=== PATIENT | female | born 1960 | race Caucasian/White ===

== ENCOUNTER → 2018-01-11 15:19 | Outpatient (CLI) | payer MEDICAID, SELFPAY ==
--- NOTE | 2018-01-11 15:25 | XR_ITS ---
XR chest 2V HISTORY: ITS.REASON: LT LAT CHEST WALL PAIN, S/P FALL 01-10-18 ORDERING PHYSICIAN: Deny Elizabeth PATIENT AGE: 57 years COMPARISON: 01/14/2007 FINDINGS: The cardiomediastinal silhouette and pulmonary vascularity are within normal limits. The lungs are clear without infiltrates, suspicious nodules, or pleural effusions. There is no right third rib fracture. No obvious pneumothorax. No displaced fractures apparent. No acute bony abnormalities. IMPRESSION: No change with no acute finding
== END ==
PROVIDERS: PCP Internal Medicine; Visit Provider Internal Medicine
DX: R07.89 Other chest pain (principal)
CPT/HCPCS: 71046

== ENCOUNTER → 2018-08-12 16:03 | Outpatient (CLI) | payer MEDICAID, SELFPAY ==
--- NOTE | 2018-08-12 16:09 | XR_ITS ---
XR knee LT 3V HISTORY: Knee pain ITS.REASON: CHRISTINE KNEE PAIN ORDERING PHYSICIAN: Deny Elizabeth PATIENT AGE: 58 years COMPARISON: None FINDINGS: No fracture or dislocation. No lytic or blastic change. Normal mineralization. No significant arthritic changes evident. No other significant findings IMPRESSION: Negative Knee
--- NOTE | 2018-08-12 16:09 | XR_ITS ---
XR knee RT 3V HISTORY: ITS.REASON: CHRISTINE KNEE PAIN ORDERING PHYSICIAN: Deny Elizabeth PATIENT AGE: 58 years COMPARISON: None FINDINGS: No fracture or dislocation. No lytic or blastic change. Normal mineralization. No significant arthritic changes evident. No other significant findings IMPRESSION: Negative Knee
== END ==
PROVIDERS: PCP Internal Medicine; Visit Provider Internal Medicine
DX: M25.561 Pain in right knee (principal); M25.562 Pain in left knee
CPT/HCPCS: 73562

== ENCOUNTER → 2020-02-23 14:54 | Outpatient (CLI) | payer OTHER, SELFPAY ==
--- NOTE | 2020-02-23 15:22 | XR_ITS ---
PROCEDURE: XR HIP LT 2-3V W/PELVIS CLINICAL INDICATION: left hip pain COMPARISON: CT ABDPELW/WO CT ABD PELVIS W/WO CONTRAST from 08/09/2015 FINDINGS: Severe osteoarthritic changes are present involving both hips with dysplastic changes of the femoral heads. No fracture or dislocation. No lytic or blastic change. There is a laminated calcific density to the right L3 and L4 consistent with a large gallstone measuring 3 cm. IMPRESSION: Severe osteoarthritic changes of the hips Cholelithiasis Dictated by: Moi Posadas MD 02/23/2020 16:34 Moi Posadas MD in [place] 02/23/2020 16:34
--- NOTE | 2020-02-23 15:22 | XR_ITS ---
PROCEDURE: XR LUMBAR SPINE MIN 4V CLINICAL INDICATION: back pain COMPARISON: No exams were available for comparison FINDINGS: No fracture or dislocation. No lytic or blastic change. There is normal mineralization. There is mild endplate osteophyte formation at L4 and L5. Other findings:Generalized vascular calcification. Incidental note made of a 3 cm gallstone. IMPRESSION: Minimal degenerative change lumbar spine. No acute fracture. Cholelithiasis Dictated by: Moi Posadas MD 02/23/2020 16:36 Moi Posadas MD in [place] 02/23/2020 16:36
[2020-02-23 15:31] LABS: Basophils # 0.1 K/mm3 (0-0.2); Basophils % 0.6 % (0.1-2.0); Eosinophils # 0.2 K/mm3 (0.0-0.4); Eosinophils % 2.5 % (0.1-12.0); Hematocrit 44.2 % (37.0-47.0); Hemoglobin 14.4 g/dL (12.2-16.2); Lymphocytes # 2.7 K/mm3 (0.7-4.5); Lymphocytes % 38.2 % (10-50); Mean Corpuscular HGB Conc 32.6 g/dL (31.8-35.4); Mean Corpuscular Hemoglobin 31.3 pg (27.0-31.2); Mean Corpuscular Volume 96.1 fl (81-99); Mean Platelet Volume 8.4 fl (7.4-10.4); Monocytes # 0.5 K/mm3 (0.1-1.0); Monocytes % 6.4 % (1.7-9.3); Neutrophils # 3.7 K/mm3 (1.8-7.8); Neutrophils % 52.2 % (37.0-80.0); Platelet Count 312 K/mm3 (142-424); Red Cell Distribution Width 13.7 % (11.5-17.5); White Blood Count 7.1 K/mm3 (4.8-10.8)
[2020-02-23 15:54] LABS: Alanine Aminotransferase 11 U/L (12-78); Albumin Level 4.7 g/dl (3.5-5.0); Albumin/Globulin Ratio 1.5 (1.1-1.8); Alkaline Phosphatase 124 U/L (38-126); Anion Gap 11.4 mEq/L (5-15); Aspartate Amino Transferase 24 U/L (14-36); Bilirubin,Total 0.7 mg/dl (0.2-1.3); Blood Urea Nitrogen 6 mg/dl (7-17); Carbon Dioxide 32 mmol/L (22.0-30.0); Chloride 104 mmol/L (98-107); Chol/HDL Ratio 3.4 (1-3.5); Cholesterol 218 mg/dl (140-200); Estimated Glomerular Filt Rate 86 ml/min (>60); GFR (African American) 104 ML/MIN (>60); Globulin 3.1 g/dL (1.3-3.2); Glucose 103 mg/dl (74-100); HDL Cholesterol 65 mg/dl (40-60); Potassium 4.4 mmoL/L (3.5-5.1); Sodium 143 mmol/L (136-145); Total Protein,Serum 7.8 g/dl (6.3-8.2); Triglycerides 76 mg/dl (30-150); Uric Acid 2.9 mg/dl (2.5-6.2); VLDL Cholesterol 15 mg/dL (0-40)
[2020-02-23 16:05] LABS: Direct LDL Cholesterol 140.64 mg/dL (100-129)
[2020-02-23 16:11] LABS: 25-OH Vitamin D, Total 20.2 ng/mL (30-100)
[2020-02-23 16:12] LABS: Free T4 (Free Thyroxine) 1.33 ng/dl (0.78-2.19)
[2020-02-23 16:25] LABS: Thyroid Stimulating Hormone 1.41 uIU/mL (0.465-4.68)
[2020-02-23 16:48] LABS: Erythrocyte Sedimentation Rate 68 mm/hr (0-30)
[2020-02-25 15:19] LABS: RA Latex Turbid. <10.0 IU/mL (0.0-13.9)
[2020-02-27 16:00] LABS: Antinuclear Antibodies, IFA Negative (.)
== END ==
PROVIDERS: PCP Emergency Medicine; Visit Provider Emergency Medicine
DX: M54.9 Dorsalgia, unspecified (principal); M25.552 Pain in left hip; R53.83 Other fatigue; E55.9 Vitamin D deficiency, unspecified
CPT/HCPCS: 36415; 72110; 73502; 80053; 80061; 82306; 84439; 84443; 84550; 85025; 85651; 86038; 86431

== ENCOUNTER → 2020-02-26 15:05 | Outpatient (CLI) | payer OTHER, SELFPAY ==
--- NOTE | 2020-02-26 15:06 | MR_ITS ---
PROCEDURE: MR LUMBAR SPINE WO CON CLINICAL INDICATION: back pain BILATERAL HIP PAIN WHEN WALKING. SYMPTOMS XYRS. LBP. LT LEG THIGH PAIN. COMPARISON: CR XR LUMBAR SPINE MIN 4V from 02/23/2020 TECHNIQUE: Standard multiplanar multiecho sequences are performed without contrast. 3-D MIP and myelographic images are also rendered and reviewed FINDINGS: There is normal alignment. The spinal cord ends at the L1 level. T11-T12: There is some ligamentum hypertrophy on the right with mild right lateral recess narrowing. This is only imaged in the sagittal plane. Dedicated MRI of the thoracic spine may provide further evaluation. T12-L1, L1-L2, L2-L3, and L3-L4 have an unremarkable appearance. L4-5: Minimal concentric bulging disc with facet and ligamentum hypertrophy with mild bilateral lateral recess and foraminal narrowing. L5-S1: Mild facet ligamentum hypertrophy with mild bilateral lateral recess and foraminal narrowing. Incidental note is made of a large gallstone. No extruded herniated disc or canal stenosis. IMPRESSION: 1. T11-T12: There is some ligamentum hypertrophy on the right with mild right lateral recess narrowing. This is only imaged in the sagittal plane. Dedicated MRI of the thoracic spine may provide further evaluation 2. L4-5: Minimal concentric bulging disc with facet and ligamentum hypertrophy with mild bilateral lateral recess and foraminal narrowing. 3. L5-S1: Mild facet ligamentum hypertrophy with mild bilateral lateral recess and foraminal narrowing. 4. No extruded herniated disc or canal stenosis 5. Cholelithiasis Dictated by: Moi Posadas MD 02/27/2020 06:31 Moi Posadas MD in [place] 02/27/2020 06:31
--- NOTE | 2020-02-26 15:52 | MM_ITS ---
PROCEDURE: MM DIG SCREENING MAMM BI W/CAD Digital Breast Tomosynthesis Included CLINICAL INDICATION: screening There is no personal or family history of breast cancer. There has been a 20 lb weight loss since the previous mammogram exam. COMPARISON: MG DMSB DIG MAMM-SCREEN CHRISTINE from 05/25/2014 MG DMSB DIG MAMM-SCREEN CHRISTINE from 05/28/2015 MG DMSB DIG MAMM-SCREEN CHRISTINE W/CAD from 06/02/2016 TECHNIQUE: Standard CC and MLO images and 3D Tomosynthesis was obtained. R2 CAD reviewed. FINDINGS: Mild scattered fibroglandular densities are seen in the central portions of both breasts. A somewhat linear collection of amorphous microcalcifications upper-outer quadrant left breast which were not definitely seen on the previous exams. Recommend the patient return for spot compression magnification views and possibly ultrasound as well. There are a few benign-appearing nodular densities left breast which has been noted previously and appear to be stable. IMPRESSION: Fibrofatty parenchyma with new suspicious microcalcifications left breast BI-RAD Category: 0 Need Additional Imaging Evaluation FOLLOW-UP: IMM Immediate Follow-up Recommended (A letter has been sent to the patient regarding results of the study.) Dictated by: Dr. Jacobo Munoz MD 02/28/2020 11:38 Dr. Jacobo Munoz MD in [place] 02/28/2020 11:38
== END ==
PROVIDERS: PCP Emergency Medicine; Visit Provider Emergency Medicine
DX: Z12.31 Encounter for screening mammogram for malignant neoplasm of breast (principal); M54.16 Radiculopathy, lumbar region; M19.90 Unspecified osteoarthritis, unspecified site; Z72.0 Tobacco use
CPT/HCPCS: 72148; 76376; 77063; 77067

== ENCOUNTER → 2020-03-06 07:57 | Outpatient (CLI) | payer OTHER, SELFPAY ==
--- NOTE | 2020-03-06 07:57 | US_ITS ---
PROCEDURE: US GALLBLADDER CLINICAL INDICATION: gallstones seen on MRI COMPARISON: No exams were available for comparison FINDINGS: Pancreas: Unremarkable/Not well seen Liver: Unremarkable. There is appropriate direction of blood flow within a non dilated portal vein. Right kidney: Unremarkable appearing. No hydronephrosis. The right kidney measures 10.9 x 3.5 by 4.6 cm and appears sonographically normal. Gallbladder: There is a large 2.5 cm nonmobile partially calcified gallstone in the body of the gallbladder. The shows prominent acoustic shadowing beneath. There is mild diffuse gallbladder wall thickening. The common bile duct is normal in caliber. IMPRESSION: Cholelithiasis probable some degree of chronic cholecystitis in view of the gallbladder wall thickening Dictated by: Dr. Jacobo Munoz MD 03/06/2020 10:33 Dr. Jacobo Munoz MD in [place] 03/06/2020 10:33
== END ==
PROVIDERS: PCP Emergency Medicine; Visit Provider Emergency Medicine
DX: K80.20 Calculus of gallbladder without cholecystitis without obstruction (principal)
CPT/HCPCS: 76705

== ENCOUNTER → 2020-03-12 13:52 | Outpatient (CLI) | payer OTHER, SELFPAY ==
--- NOTE | 2020-03-12 13:52 | US_ITS ---
PROCEDURE: MM DIG MAMM DX UNILAT LT CAD US US BREAST LT COMPLETE Referring Doctor: Chavo Perales Patient Age:60Y CLINICAL INDICATION: Abnormal mammogram progressive abnormal calcifications upper outer quadrant.. COMPARISON: MG DMSB DIGITAL MAMM-SCREEN BILATERAL from 03/25/2010 MG DMSB DIGITAL MAMM-SCREEN BILATERAL from 04/26/2012 MG DMDB DIG MAMM-DX CHRISTINE from 03/24/2013 MG DMSB DIG MAMM-SCREEN CHRISTINE from 05/25/2014 MG DMSB DIG MAMM-SCREEN CHRISTINE W/CAD from 06/02/2016 MG MM DIG SCREENING MAMM BI W/CAD from 02/26/2020 US US BREAST LT COMPLETE from 03/12/2020 TECHNIQUE: Magnification views cc, MLO, 90 degree. FINDINGS: .. DIAGNOSTIC LEFT MAMMOGRAM -MAGNIFICATION VIEWS additional magnification views performed today including cc MLO and 90 degree magnification views of calcifications in the upper outer quadrant. This grouping of numerous stippled calcifications are suspicious and do warrant stereotactic biopsy, to further evaluate This grouping/region of calcifications extends for region of approximately 2.5 cm length here at upper-outer quadrant left breast The small less than 1 cm nodular densities elsewhere at the left breast mainly evident at the lateral and inferior left breast, were seen on previous studies dating back to 2013 and appear overall fairly stable. These will be further evaluated with ultrasound today for a baseline ultrasound evaluation, but can be followed otherwise .. ULTRASOUND LEFT BREAST Ultrasound left breast demonstrates 2 small cyst: 6 o'clock there is a small cyst measuring to 4.3 mm. 3 o'clock small cyst containing debris. 5.5 mm x 4 mm... No significant solid nodules. No architectural distortion. The other role of today's left breast ultrasound study was to survey the axilla-no suspicious axillary nodes. Scattered overall benign appearing lymph nodes. IMPRESSION: 1..Stippled grouping calcifications upper-outer quadrant left breast-warrant stereotactic biopsy 2.. Ultrasound demonstrates 2 small benign cyst at 6 o'clock and 3 o'clock left breast. These account 2 of the 4 small longstanding nodular density seen at left breast since 2013. The others can be followed The other role of the left breast ultrasound today was to survey the left axilla-. No suspicious lymph nodes left axilla BI-RAD Category: 4 Supicious Abnormality- Biopsy Considered FOLLOW-UP: Biopsy Recommended (A letter has been sent to the patient regarding results of the study.) How are iliac foot the delta my and 95 dictated on Dictated by: Jhon Hugo MD 03/12/2020 19:22 Jhon Hugo MD in [place] 03/12/2020 19:22
--- NOTE | 2020-03-12 15:07 | MR_ITS ---
PROCEDURE: MR THORACIC SPINE WO CON Referring Doctor: Chavo Perales Patient Age:60Y CLINICAL INDICATION: Bilateral back and knee pain Abn MRI l/spine referenced COMPARISON: MR MR LUMBAR SPINE WO CON from 02/26/2020 TECHNIQUE: multiplanar multisequence imaging 1.5 rm MR of primarily sagittal imaging from lower C-spine to the level of L1 using T1, T2 and STIR images but axial T1 and T2 images through the lower T-spine included a . No IV contrast utilized FINDINGS: Sagittal images include lower C-spine down to L1 vertebra. The vertebral bodies are intact with no compression fracture nor vertebral lesion of significance.. Partially imaged thyroid appears generous on the sagittal views likely upper normal size-clinical palpation suggested to correlate. Only minor observations C-spine no prominent or significant appearing features Scant spondylosis lower C-spine C6/7. Minor disc osteophyte features only very slightly indents thecal sac at at the C6/7 T-spine: No disc herniation. Only minor degenerative disc changes at the mid and upper T-spine. Mild disc space narrowing anteriorly at T3/4 and-T4/5 with thoracic kyphosis slightly accentuate at this region Borderline narrowing anterior aspect T5-T6 and perhaps T disc but minor anterior osteophytes to from T3 through T7 elated to these very early minor degenerative disc changes. T6/7-scant barely evident posterior ridging left paracentral, suggestion axial images and sagittal image 9-but does not appear to be of significance. There is some developing Facet hypertrophy developing at the lower T-spine.: . T9-T10 early facet hypertrophy most evident to the right . T10-11 mild facet prominence, less evident bilaterally at T10-11 . T11-T12: Posterior element/facet hypertrophy on right does focally indent the posterior right aspect of the thecal and towards the right lateral recess, (T2 weighted axial image 21, and sagittal image 6). And nearly abuts the posterior right margin of the lower thoracic cord. However this does not significantly encroach upon the right foramen. No foraminal stenosis.. This of doubtful clinical significance but IMPRESSION: 1.. Minor observations T-spine. No prominent findings. . No disc herniation/no significant spinal stenosis. .2.. Mild degenerative changes highlighted below: -. T11/12. Generous right facet hypertrophy indents posterior right aspect thecal sac, and nearly abuts posterior right margin of lower thoracic cord. -. Minor, scant degenerative disc space narrowing anteriorly at T3/4, T4/5 and T5/6 with normal thoracic kyphosis only mildly accentuated through this region. . Dictated by: Jhon Hugo MD 03/19/2020 10:23 Jhon Hugo MD in [place] 03/19/2020 10:23
== END ==
PROVIDERS: PCP Emergency Medicine; Visit Provider Emergency Medicine
DX: R92.8 Other abnormal and inconclusive findings on diagnostic imaging of breast (principal); M46.00 Spinal enthesopathy, site unspecified; M47.24 Other spondylosis with radiculopathy, thoracic region
CPT/HCPCS: 72146; 76641; 77061; 77065; G0279

== ENCOUNTER → 2020-04-08 15:58 | Outpatient (CLI) | payer OTHER, SELFPAY ==
[2020-04-08 16:52] LABS: Coronavirus 19 IgG Antibody Negative (Negative); Coronavirus 19 IgM Antibody Negative (Negative)
== END ==
PROVIDERS: Visit Provider Surgery
DX: Z01.812 Encounter for preprocedural laboratory examination (principal); Z20.822 Contact with and (suspected) exposure to COVID-19; Z12.11 Encounter for screening for malignant neoplasm of colon; Z86.010 Personal history of colon polyps
CPT/HCPCS: 36415; 86328

== ENCOUNTER 2020-04-09 07:53 | Day surgery (SDC) | payer OTHER, SELFPAY ==
[2020-04-02 13:26] VITALS: BMI 20.4
[2020-04-09 08:06] VITALS: BP 132/73; PULSE 96; RESP 16; TEMP 36.8; O2SAT 97
--- NOTE | 2020-04-09 08:13 | P.PN_ITS ---
[facility] Anesthesia Checklist - Patient Identification Patient Identification: Arm Band, Verbal (Name & ) - Structural Data Admitted From: Home Planned Operative Procedure/s: colon Consent for Planned Operative Procedure(s) Verified: Yes Verified Documents: History and Physical - NPO Status Verified Time NPO: 00:00 - Additional verifications Patient : No Anesthesia Reactions: No Hx Blood Transfusions: No Blood Transfusion Reaction: No Cephalosporin Allergy: No Previous Colonoscopy: Yes - Cardiovascular Assessment Heart Sounds: S1 & S2 Pulse Strength: Baseline Pulse Rhythm: Regular Peripheral Edema: No - Airway Assessment C-Spine Mobility Assessed: Yes TMJ Mobility Assessed: Yes Dentition: Good Dentition - Neurological Assessment Level of Consciousness: Awake, Alert, Appropriate Hx Seizures: No Numbness or tingling in extremities: No - Anesthesia Plan Anesthesia Risk discussed: Yes Anesthesia Plan: Verified ASA Class: II Anesthesia Type: MAC [facility] History I have reviewed the patient's past medical history: Yes Medical History: Denies:: Cancer, Diabetes Mellitus Type 1, Diabetes Mellitus Type 2, Internal Pacemaker, MRSA, Seizures *Have you ever received a pneumonia vaccine?: No *Have you received a flu vaccine this season?: No Anesthesia experience/problems:: none Laterality Cases: Bilateral: Tonsillectomy Other Surgeries: Yes: Colonoscopy, . No: Pacemaker Amputation: No Fractures: Yes - *Social History Last grade of school completed: Some college Smoking Status: Current every day smoker Tobacco Type: cigarettes # Packs/Day (cigarettes): 1 Alcohol Intake: current Alcohol Intake Frequency:: holidays/special occasions only Substance Use Type: marijuana *Occupational Status:: unemployed Housing: house Household Members: significant other *Travel in the last 8 weeks: None Family Hx:: Cancer, Diabetes, Kidney Disease
[2020-04-09 08:14] VITALS: O2SAT 97
[2020-04-09 08:44] VITALS: BP 100/56; PULSE 53; RESP 16; TEMP 36.6; O2SAT 97
--- NOTE | 2020-04-09 08:45 | HMH.SCOPE ---
- Procedure: Date: 04/09/20 Patient Date of :: 1960 Procedure Performed:: ] Indications:: Patient is a 60-year-old female referred by Dr. Perales for possible gallbladder. She had findings of gallstones incidental on plain films and confirmed by ultrasound. However this was proven to be asymptomatic. When she was being evaluated in the office she did mention that she was potentially due for colonoscopy. She had previous colonoscopy performed with several adenomatous polyps removed. She was past due. Performing Provider:: Rodrick Mayes MD Referring Provider:: Lonny Perales MD Sedation:: MAC sedation Procedure:: Colonoscope was inserted via the anus and advanced to the cecum with some minor difficulty due to floppiness and redundancy of the sigmoid colon. Within the cecum the appendiceal orifice and ileocecal valve were clearly identified. Colonic preparation was moderate but adequate visualization was achieved with irrigation and suctioning. Colonoscope was slowly withdrawn through the colon with careful surveillance. In the left colon there was moderate diverticulosis. None of this appeared to be actively inflamed. Retroflexion within the rectum revealed internal hemorrhoids. Colonoscope was withdrawn. Findings:: Sigmoid diverticulosis Internal hemorrhoids Recommendations:: Likely repeat colonoscopy 5 years given the prior history of multiple adenomatous polyps. I will see her in the office in several months to reassess potential gallbladder symptomatology. Complications:: None Estimated blood obtained (mL): 0
[2020-04-09 08:54] VITALS: BP 106/69; PULSE 78; RESP 16; TEMP 36.6; O2SAT 98
[2020-04-09 09:04] VITALS: BP 122/76; PULSE 78; RESP 18; TEMP 36.6; O2SAT 99
[2020-04-09 09:18] VITALS: BP 132/65; PULSE 69; RESP 18; TEMP 36.6; O2SAT 98
== END 2020-04-09 09:19 | disposition home or self-care (01) ==
LOC: OUTP 07:54
PROVIDERS: PCP Emergency Medicine; Visit Provider Surgery
PROC: 0DJD8ZZ Inspection of Lower Intestinal Tract, Via Natural or Artificial Opening Endoscopic (ICD-10-PCS; CPT 45378; principal; 2020-04-09 08:30)
DX: Z12.11 Encounter for screening for malignant neoplasm of colon (principal); K56.2 Volvulus; Q43.8 Other specified congenital malformations of intestine; K57.30 Diverticulosis of large intestine without perforation or abscess without bleeding; K64.0 First degree hemorrhoids; Z86.010 Personal history of colon polyps; Z87.19 Personal history of other diseases of the digestive system; K80.20 Calculus of gallbladder without cholecystitis without obstruction; Z72.0 Tobacco use; F12.90 Cannabis use, unspecified, uncomplicated; Z80.9 Family history of malignant neoplasm, unspecified; Z83.3 Family history of diabetes mellitus
CPT/HCPCS: 45378

== ENCOUNTER → 2020-06-06 10:24 | Outpatient (POV) | payer OTHER, SELFPAY ==
[2020-06-06 10:41] VITALS: BP 120/65; PULSE 65; RESP 18; TEMP 36.8; O2SAT 98; BMI 19.4
--- NOTE | 2020-06-06 11:30 | HMH.PMCON ---
Assessment and Plan (1) Left knee pain Status: Chronic Category: Medical Code(s): M25.562 - Pain in left knee (2) Osteoarthritis Status: Chronic Qualifiers: Osteoarthritis location: knee Laterality: left Category: Medical Code(s): M19.90 - Unspecified osteoarthritis, unspecified site - Assessment and plan all Dx Assessment and Plan for all problems:: We will schedule the patient for a left intra-articular knee injection. Patient's been instructed to call the office if she has any issues prior to her next appointment. I will follow-up with her after her injection reassess her symptoms at that time. Dr. Ochoa has reviewed this note and agrees with this plan of care. This note was dictated using voice recognition software and may contain errors or omissions HPI - Data of Consult Consult date: 06/06/20 Requesting Physician: Merna Garrett APRN Primary Care Provider: Chavo Perales MD - Consult Narrative Reason for consult: Back pain, knee pain History of present illness: Ms. Birch is a 60 year old female who presents today for consultation in regards to her back and knee pain. Patient states her biggest complaint today is her left knee pain she has had it for several years after trauma. Patient rates her pain a 5 out of 10. Patient states that increased use increases her pain while heat and rest decrease her pain. Patient has taken Tylenol and ibuprofen that relieves it somewhat however it does not take care of the amount of pain that she is in. We discussed intra-articular knee injection she is interested in pursuing this. She has had x-rays that were negative in the past. I do believe we can move forward with some intra-articular knee injections and then if she does not get relief get additional x-rays. Patient states her pain is mainly in her left knee. CC: Merna Garrett APRN [facility] History I have reviewed the patient's past medical history: Yes Medical History: Denies:: Cancer, Diabetes Mellitus Type 1, Diabetes Mellitus Type 2, Internal Pacemaker, MRSA, Seizures *Have you ever received a pneumonia vaccine?: Yes *Have you received a flu vaccine this season?: Yes Other Medical History: Reports: Arthritis. Denies: Blood Transfusion Reaction Laterality Cases: Bilateral: Tonsillectomy Other Surgeries: Yes: Colonoscopy, . No: Pacemaker Amputation: No Fractures: Yes - *Social History Smoking Status: Current every day smoker Tobacco Type: cigarettes # Packs/Day (cigarettes): 1 Alcohol Intake: never Alcohol Intake Frequency:: holidays/special occasions only Substance Use Type: marijuana *Occupational Status:: other Housing: house Household Members: other *Travel in the last 8 weeks: None Family Hx:: Unable to obtain Review of Systems - Review of Systems ROS General: no recent weight change, no fever, no sleep disturbances Respiratory: no cough, no shortness of air, no recurring pulmonary infections Cardiovascular/Peripheral Vascular: No chest pain, No palpitations, no edema, no shortness of breath. Gastrointestinal: no new onset incontinence, normal bowel movements reported Genitourinary: no new onset incontinence Musculoskeletal: Left knee pain Psychiatric: normal mood/ affect Neurological: [denies new onset weakness in extremities], [denies new onset balance issues] Meds Home Medications Medication Instructions Recorded Confirmed Type Cholecalciferol (Vitamin D3) 1,000 unit PO DAILY 04/02/20 05/08/20 History [Vitamin D3 1,000 Unit Cap] Ergocalciferol (Vitamin D2) 1,250 mcg PO WEEKLY 04/02/20 05/08/20 History [Vitamin D2] Multivit-Min/Folic Acid/Vit K1 1 each PO DAILY 04/02/20 05/08/20 History [Multi For Her 50 Plus Softgel] Budesonide/Formoterol Fumarate 2 puff INHALATION BID 04/09/20 05/08/20 History [Budesonide-Formoterol 80-4.5] buspirone 5 mg tablet 5 mg PO BID #60 tab 05/08/20 05/08/20 Rx azithromycin 250 mg tablet See R
== END ==
PROVIDERS: PCP Emergency Medicine; Visit Provider Clinical Nurse Specialist Family Health
DX: M25.562 Pain in left knee (principal); M19.90 Unspecified osteoarthritis, unspecified site
CPT/HCPCS: 99202; G0463

== ENCOUNTER 2020-06-14 10:41 | Day surgery (SDC) | payer OTHER, SELFPAY ==
[2020-06-14 11:39] VITALS: BP 122/72; PULSE 84; RESP 18; TEMP 36.8; O2SAT 99; BMI 19.8
[2020-06-14 12:18] VITALS: BP 147/78; PULSE 78; RESP 18
[2020-06-14 12:19] VITALS: BP 147/74; PULSE 89; RESP 18; O2SAT 98
--- NOTE | 2020-06-14 12:20 | HMH.PMPROC ---
- Procedure Date: 06/14/20 Time: 12:20 Anesthesiologist:: Win Ochoa MD Complications:: None Pre-procedure Diagnosis:: Left knee pain chronic with degenerative osteoarthritis Post-procedure Diagnosis:: Same Indications for Procedure:: This patient is a pleasant 60-year-old white female who we are treating for chronic left knee pain with degenerative osteoarthritis. We will do a left knee intra-articular injection today to see if this will help with her symptoms. Procedure Details:: Left knee intra-articular injection Informed consent was obtained the risk and benefits of the procedure were explained to the patient. Patient was taken the procedure room left knee was prepped using ChloraPrep. A 25-gauge needle was used first medially then laterally to inject 10 mL bupivacaine 0.25% and Depo-Medrol 40 mg into the left knee. Patient tolerated the procedure well with no complications. Plan and Disposition:: We will follow-up with her in 2 weeks. Will reevaluate her symptoms at that time.
[2020-06-14 12:30] VITALS: BP 133/80; PULSE 82; RESP 18; O2SAT 98
== END 2020-06-14 12:30 | disposition home or self-care (01) ==
LOC: SC.PAINP 10:43
PROVIDERS: PCP Emergency Medicine; Visit Provider Anesthesiology
DX: M17.12 Unilateral primary osteoarthritis, left knee (principal); G89.29 Other chronic pain; F41.9 Anxiety disorder, unspecified; F32.9 Major depressive disorder, single episode, unspecified; G43.909 Migraine, unspecified, not intractable, without status migrainosus; Z88.0 Allergy status to penicillin; Z88.6 Allergy status to analgesic agent; Z72.0 Tobacco use; Z86.79 Personal history of other diseases of the circulatory system
CPT/HCPCS: 20610

== ENCOUNTER → 2020-08-22 14:36 | Outpatient (POV) | payer OTHER, SELFPAY ==
[2020-08-22 15:23] VITALS: BP 122/46; PULSE 53; RESP 18; O2SAT 100; BMI 18.8
--- NOTE | 2020-08-22 16:50 | HMH.PAINSOAP ---
[facility] Pain Management SOAP Note Subjective:: Patient is a 60-year-old white female who presents today for follow-up after knee injections. She was seen on 06/14/2020 for a left knee injection. Patient says that she did get significant relief with the injections, however, her pain has returned. She is having pain in bilateral knees at this time. Standing and bending worsen her pain in her knees. She says elevation of her legs improve her pain. Ice and heat therapies also help her pain. She has tried ibuprofen and naproxen which have given her about 30 to 40% relief. She did get up to 80% relief of her left knee injection for 2 weeks. She would like to undergo repeat injections to bilateral knees. She has tried and failed conservative therapies of physical therapy for greater than 6 weeks in the past along with continued home stretching. She is also taking anti-inflammatories. We did discuss trying meloxicam to see if this will help with her pain. She has taken ibuprofen and naproxen as well as diclofenac in the past. Review of Systems General: No recent weight changes, no fever, no sleep disturbances Respiratory: No cough, no shortness of air, no recurring pulmonary infections Cardiovascular/peripheral vascular: No chest pain, no palpitations, no edema, no shortness of breath Gastrointestinal: No new onset incontinence, normal bowel movements reported Genitourinary: No new onset incontinence Musculoskeletal: Lateral knee pain Psychiatric: Normal mood/affect Neurological: [Denies weakness in extremities], [denies balance issues] Objective:: Physical exam General: Alert and oriented x3, no acute distress, pleasant and cooperative, [on room air] Lungs: Respirations even and unlabored, symmetrical chest expansion Eyes: PERRL Musculoskeletal: Flexion and extension of bilateral lower extremities somewhat guarded secondary to pain, deep tendon reflexes normal, strength in upper and lower extremities [5/5], [abnormal gait noted] Neurological: Speech clear, designer writer equal, no gross sensory deficit Assessment:: Degenerative osteoarthritis bilateral knees Plan:: Patient has tried and failed conservative therapies of physical therapy for greater than 6 weeks along with home stretching. She is also taken anti-inflammatories. I have advised her to stop taking all other inflammatories. We will start her on meloxicam 7.5 mg 1 tablet p.o. daily. We will schedule her for bilateral intra-articular knee injections. She has had these injections in the past and has gotten significant relief, up to 80 to 90% relief for 2 weeks. We will follow-up with her after her injections for reevaluation of her symptoms. Risks and benefits of the medication have been explained in detail to the patient. The patient has been advised to consult with his/her primary care provider and pharmacist regarding drug-drug interaction of medications currently prescribed. Patient has been instructed to contact the clinic with any concerns before the next appointment. Dr. Ochoa has reviewed this note and agrees with this plan of care. This note was dictated using voice recognition software and make contain errors or omissions. [facility] History I have reviewed the patient's past medical history: Yes Medical History: Reports:: Valvular Heart Disease Denies:: Cancer, Diabetes Mellitus Type 1, Diabetes Mellitus Type 2, Internal Pacemaker, MRSA, Seizures *Have you ever received a pneumonia vaccine?: Yes *Have you received a flu vaccine this season?: Yes Other Medical History: Reports: Arthritis. Denies: Blood Transfusion Reaction Laterality Cases: Bilateral: Tonsillectomy Other Surgeries: Yes: Colonoscopy, . No: Pacemaker Amputation: No Fractures: Yes - *Social History Smoking Status: Current every day smoker Tobacco Type: cigarettes # Packs/Day (cigarettes): 1 Alcohol Intake: never Alcohol Intake Frequency:: holidays/special occasions only Substance Use Typ
== END ==
PROVIDERS: PCP Emergency Medicine; Visit Provider Clinical Nurse Specialist Family Health
DX: M17.0 Bilateral primary osteoarthritis of knee (principal)
CPT/HCPCS: 99212; G0463

== ENCOUNTER 2020-08-30 11:40 | Day surgery (SDC) | payer OTHER, SELFPAY ==
[2020-08-30 12:20] VITALS: BP 131/69; PULSE 90; RESP 19; TEMP 36.7; O2SAT 97; BMI 18.8
[2020-08-30 13:08] VITALS: BP 131/69; PULSE 90; RESP 20; O2SAT 96
[2020-08-30 13:12] VITALS: BP 140/88; PULSE 92; RESP 20; O2SAT 96
--- NOTE | 2020-08-30 14:19 | XR_ITS ---
PROCEDURE: XR ELBOW RT MIN 3V CLINICAL INDICATION: R Elbow pain COMPARISON: No exams were available for comparison FINDINGS: Three views of the right elbow show no fracture or dislocation. Some diffuse degenerative changes of the elbow joint are noted. No joint effusion. Mild soft tissue swelling is present. If elbow pain persists, consider MRI of the right elbow for further assessment. IMPRESSION: Moderate diffuse degenerative changes of the elbow joint and mild soft tissue swelling. See comment above. No acute fracture or dislocation. Dictated by: Ethan Baer MD 08/30/2020 16:43 Ethan Baer MD in [place] 08/30/2020 16:43
[2020-08-30 15:12] VITALS: BP 120/63; PULSE 68; RESP 19; TEMP 36.7; O2SAT 97
--- NOTE | 2020-08-30 16:43 | P.PCN_ITS ---
- Procedure Date: 08/30/20 Time: 16:43 Anesthesiologist:: Nevaeh Garcia MD Complications:: None Pre-procedure Diagnosis:: Left knee pain, left knee osteoarthritis Post-procedure Diagnosis:: Same Indications for Procedure:: This is a very pleasant 60-year-old female who presents today with lateral knee pain related to the above diagnosis. She has previously undergone multiple intra-articular knee injections with significant pain relief. She has trialed and failed conservative treatment including oral pain medications and physical therapy for greater than 6 weeks. The plan for today is for her to undergo Fletcher bilateral intra-articular knee injections. Procedure Details:: Informed consent was obtained. Risks and benefits of the procedure were explain ed to the patient. Patient was taken back to the procedure room. Right and left knee was prepped using ChloraPrep. 5 gauge needle was used in a lateral to medial trajectory and the needle was advanced until the intra-articular knee joint was approached. An injectate solution of 10 mL of bupivacaine 0.25% and Depo-Medrol 40 mg was injected into the left knee. This was then repeated on the right side. Patient tolerated the procedure well with no complications. Plan and Disposition:: Follow-up with this patient in 2 weeks. Will reevaluate pain symptoms at that t elliott.
== END 2020-08-30 13:15 | disposition home or self-care (01) ==
PROVIDERS: PCP Emergency Medicine; Visit Provider Anesthesiology Pain Medicine
DX: M17.12 Unilateral primary osteoarthritis, left knee (principal); M25.521 Pain in right elbow; Z88.0 Allergy status to penicillin; Z88.6 Allergy status to analgesic agent
CPT/HCPCS: 20610; 73080; J1030

== ENCOUNTER → 2020-09-23 10:50 | Outpatient (CLI) | payer OTHER, SELFPAY ==
--- NOTE | 2020-09-23 10:55 | XR_ITS ---
PROCEDURE: XR LUMBAR SPINE 6V W BENDING CLINICAL INDICATION: Back Pain COMPARISON: CT ABDPELW/WO CT ABD PELVIS W/WO CONTRAST from 08/09/2015 CR XR LUMBAR SPINE MIN 4V from 02/23/2020 FINDINGS: No fracture or dislocation. No lytic or blastic change. There is normal mineralization. There is degenerative disc disease at L4-L5. Mild facet sclerotic changes are present at L4, L5, and S1. Flexion and extension views show no abnormal subluxation. There is a laminated 3 cm calcific density to the right of L3-L4 consistent with a large gallstone. A 2 mm stone noted to the left of L3 and may be due to small renal calculus. Incidental note is made aortic calcifications. IMPRESSION: Degenerative changes of the lumbar spine with no abnormal subluxation. Large right gallstone Small left renal stone Dictated by: Moi Posadas MD 09/23/2020 11:37 Moi Posadas MD in [place] 09/23/2020 11:37
--- NOTE | 2020-09-23 10:55 | XR_ITS ---
PROCEDURE: XR HIP LT 2-3V W/PELVIS CLINICAL INDICATION: Injury to L hip Pain COMPARISON: CR XR HIP LT 2-3V W/PELVIS from 02/23/2020 FINDINGS: There are severe osteoarthritic changes of both hips with some mild flattening of the femoral heads on both sides left greater than right. Prominent osteophytes are present at both hip joints. There is widening the femoral necks on both sides right greater than left. No obvious fracture or dislocation. There is an irregular lucency through both femoral heads and necks likely related to Mach line from the posterior acetabulum with osteophyte IMPRESSION: 1. No acute fracture. 2. Severe osteoarthritis of both hips with dysplastic changes as described above overall not significantly changed Dictated by: Moi Posadas MD 09/23/2020 11:41 Moi Posadas MD in [place] 09/23/2020 11:41
== END ==
PROVIDERS: PCP Emergency Medicine; Visit Provider Emergency Medicine
DX: M54.5 Low back pain (principal); S79.912A Unspecified injury of left hip, initial encounter; S89.92XA Unspecified injury of left lower leg, initial encounter
CPT/HCPCS: 72114; 73502

== ENCOUNTER → 2020-09-26 10:46 | Outpatient (POV) | payer OTHER, SELFPAY ==
[2020-09-26 11:18] VITALS: BP 130/78; PULSE 103; RESP 18; O2SAT 96; BMI 19.8
--- NOTE | 2020-09-26 12:52 | P.CONS_ITS ---
[facility] Pain Management SOAP Note Subjective:: Patient is a 60-year-old white female who presents today for follow-up after a left intra-articular knee injection. She got excellent relief with the injection. She is complaining, however, of left hip pain. She did have a fall over the weekend. She says that her pain is a 6 out of 10. She did undergo imaging which was unremarkable. She says that she is unsure if she wants to have any type of injective therapy at this time. We did discuss compounding cream that she can apply topically to her left hip for pain relief. She would like to try compounding cream at this time. Review of Systems General: No recent weight changes, no fever, no sleep disturbances Respiratory: No cough, no shortness of air, no recurring pulmonary infections Cardiovascular/peripheral vascular: No chest pain, no palpitations, no edema, no shortness of breath Gastrointestinal: No new onset incontinence, normal bowel movements reported Genitourinary: No new onset incontinence Musculoskeletal: Left hip pain Psychiatric: Normal mood/affect Neurological: [Denies weakness in extremities], [denies balance issues] Objective:: Physical exam General: Alert and oriented x3, no acute distress, pleasant and cooperative, [on room air] Lungs: Respirations even and unlabored, symmetrical chest expansion Eyes: PERRL Musculoskeletal: Range of motion of left lower extremity somewhat guarded secondary to pain, deep tendon reflexes normal, strength in upper and lower extremities [5/5], [abnormal gait noted] Neurological: Speech clear, automobile painter equal, no gross sensory deficit Assessment:: Left hip pain, Plan:: We will order patient compounding cream to apply topically to her left hip. We will see her back in a month to see if the cream has given her relief. If she has any issues she can call the clinic before then. Patient has been instructed to contact the clinic with any concerns before the next appointment. Dr. Ochoa has reviewed this note and agrees with this plan of care. This note was dictated using voice recognition software and make contain errors or omissions. [facility] History I have reviewed the patient's past medical history: Yes Medical History: Reports:: Valvular Heart Disease Denies:: Cancer, Diabetes Mellitus Type 1, Diabetes Mellitus Type 2, Internal Pacemaker, MRSA, Seizures *Have you ever received a pneumonia vaccine?: Yes *Have you received a flu vaccine this season?: Yes Other Medical History: Reports: Arthritis. Denies: Blood Transfusion Reaction Laterality Cases: Bilateral: Tonsillectomy Other Surgeries: Yes: Colonoscopy, . No: Pacemaker Amputation: No Fractures: Yes - *Social History Smoking Status: Current every day smoker Tobacco Type: cigarettes # Packs/Day (cigarettes): 1 Alcohol Intake: current Alcohol Intake Frequency:: holidays/special occasions only Substance Use Type: marijuana *Occupational Status:: unemployed Housing: house Household Members: other *Travel in the last 8 weeks: None Family Hx:: Unable to obtain
== END ==
PROVIDERS: PCP Emergency Medicine; Visit Provider Clinical Nurse Specialist Family Health
DX: M25.552 Pain in left hip (principal)
CPT/HCPCS: 99212; G0463

== ENCOUNTER → 2020-10-24 11:15 | Outpatient (POV) | payer OTHER, SELFPAY ==
[2020-10-24 11:15] VITALS: BP 144/77; PULSE 85; RESP 18; O2SAT 98; BMI 19.8
--- NOTE | 2020-10-24 11:43 | HMH.PAINSOAP ---
[facility] Pain Management SOAP Note Subjective:: Patient is a very pleasant 60-year-old white female who presents today for follow-up after compounding cream was ordered. She is being treated for left hip pain. The patient did have a fall at her last visit and was having a 6 out of 10 pain to her left hip area. Patient says that the compounding cream gave her excellent relief. It does not last as long as she had hoped, however, she is getting significant relief. Patient was seen by her primary care provider recently and did have a bone scan. She was noted to have osteoporosis. She is having some low back pain. She says that her primary care provider did plan to send her back to our clinic for low back pain. She says she does not feel the pain is to the point that she needs injective therapy at this time. She also has had injections to her left knee from the clinic. She says she is doing well overall at this area as well. She says that she has been taking Aleve [id number]. We discussed changing to diclofenac 75 mg 1 tablet p.o. twice daily. She would like to try this to see if it helps. She and I did discuss if she does not get relief with diclofenac, to return to her Aleve and contact the clinic for reevaluation so we can discuss a further plan of care with other medication management. If her pain does worsen to her left hip, left knee, or low back, she can return to the clinic before her next visit as well. She is continue with her compounding cream. She does rate her pain today a 3 out of 10. \Review of Systems General: No recent weight changes, no fever, no sleep disturbances Respiratory: No cough, no shortness of air, no recurring pulmonary infections Cardiovascular/peripheral vascular: No chest pain, no palpitations, no edema, no shortness of breath Gastrointestinal: No new onset incontinence, normal bowel movements reported Genitourinary: No new onset incontinence Musculoskeletal: Left hip pain intermittent Psychiatric: [Normal mood/affect] Neurological: [Denies weakness in extremities], [denies balance issues] Objective:: Physical exam General: Alert and oriented x3, no acute distress, pleasant and cooperative, [on room air] Lungs: Respirations even and unlabored, symmetrical chest expansion Eyes: PERRL Musculoskeletal: Flexion and extension of [] left leg somewhat guarded secondary to pain, strength in upper and lower extremities [5/5], [antalgic gait noted] Neurological: Speech clear, [lunchroom monitor equal], no gross sensory deficit Assessment:: Left hip pain, left knee pain, low back pain Plan:: Patient is doing well overall with her compounding cream. We will order her diclofenac 75 mg 1 tablet p.o. twice daily for her low back pain and left hip pain. We will plan to see her back in the clinic in 4 months for reevaluation of symptoms. If the patient's pain worsens in that time she can call the clinic and we will see her earlier. Risks and benefits of the medication have been explained in detail to the patient. The patient has been advised to consult with his/her primary care provider and pharmacist regarding drug-drug interaction of medications currently prescribed. Patient has been instructed to contact the clinic with any concerns before the next appointment. Dr. Ochoa has reviewed this note and agrees with this plan of care. This note was dictated using voice recognition software and make contain errors or omissions. [facility] History I have reviewed the patient's past medical history: Yes Medical History: Reports:: Valvular Heart Disease Denies:: Cancer, Diabetes Mellitus Type 1, Diabetes Mellitus Type 2, Internal Pacemaker, MRSA, Seizures *Have you ever received a pneumonia vaccine?: Yes *Have you received a flu vaccine this season?: Yes Other Medical History: Reports: Arthritis. Denies: Blood Transfusion Reaction Laterality Cases: Bilateral: Tonsillectomy Other Surgeries: Yes: Colonoscopy, .
== END ==
PROVIDERS: PCP Emergency Medicine; Visit Provider Clinical Nurse Specialist Family Health
DX: M25.552 Pain in left hip (principal); M25.562 Pain in left knee; M54.5 Low back pain
CPT/HCPCS: 99212; G0463

== ENCOUNTER → 2020-12-24 14:17 | Outpatient (CLI) | payer OTHER, SELFPAY ==
[2020-12-24 14:47] LABS: Basophils # 0.1 K/mm3 (0-0.2); Basophils % 1.9 % (0.1-2.0); Eosinophils # 0.5 K/mm3 (0.0-0.4); Eosinophils % 6.1 % (0.1-12.0); Hematocrit 42.7 % (37.0-47.0); Hemoglobin 13.8 g/dL (12.2-16.2); Lymphocytes % 41.2 % (10-50); Mean Corpuscular HGB Conc 32.4 g/dL (31.8-35.4); Mean Corpuscular Hemoglobin 32.3 pg (27.0-31.2); Mean Corpuscular Volume 99.5 fl (81-99); Monocytes # 0.5 K/mm3 (0.1-1.0); Monocytes % 7.3 % (1.7-9.3); Neutrophils # 3.2 K/mm3 (1.8-7.8); Neutrophils % 43.5 % (37.0-80.0); Platelet Count 343 K/mm3 (142-424); Red Blood Count 4.29 M/mm3 (4.20-5.40); Red Cell Distribution Width 13.3 % (11.5-17.5); White Blood Count 7.3 K/mm3 (4.8-10.8)
[2020-12-24 15:29] LABS: Erythrocyte Sedimentation Rate 20 mm/hr (0-30)
[2020-12-24 16:51] LABS: Free T4 (Free Thyroxine) 1.09 ng/dl (0.78-2.19)
[2020-12-24 16:52] LABS: 25-OH Vitamin D, Total 25.1 ng/mL (30-100)
[2020-12-24 17:26] LABS: Chloride 106 mmol/L (98-107); Potassium 4.5 mmoL/L (3.5-5.1); Sodium 143 mmol/L (136-145)
[2020-12-24 17:29] LABS: Alanine Aminotransferase 11 U/L (12-78); Albumin Level 4.1 g/dl (3.5-5.0); Albumin/Globulin Ratio 1.5 (1.1-1.8); Alkaline Phosphatase 92 U/L (38-126); Anion Gap 11.5 mEq/L (5-15); Aspartate Amino Transferase 23 U/L (14-36); Bilirubin,Total 0.3 mg/dl (0.2-1.3); Blood Urea Nitrogen 10 mg/dl (7-17); Calcium 9.3 mg/dl (8.4-10.2); Carbon Dioxide 30 mmol/L (22.0-30.0); Chol/HDL Ratio 2.9 (1-3.5); Cholesterol 187 mg/dl (140-200); Estimated Glomerular Filt Rate 103 ml/min (>60); GFR (African American) 124 ML/MIN (>60); Globulin 2.7 g/dL (1.3-3.2); Glucose 104 mg/dl (74-100); HDL Cholesterol 64 mg/dl (40-60); Total Protein,Serum 6.8 g/dl (6.3-8.2); Triglycerides 98 mg/dl (30-150); VLDL Cholesterol 20 mg/dL (0-40)
[2020-12-24 18:00] LABS: Thyroid Stimulating Hormone 4.93 uIU/mL (0.465-4.68)
[2020-12-24 18:53] LABS: Direct LDL Cholesterol 109.84 mg/dL (100-129)
== END ==
PROVIDERS: Visit Provider Emergency Medicine
DX: R53.83 Other fatigue (principal); E55.9 Vitamin D deficiency, unspecified; Z79.899 Other long term (current) drug therapy
CPT/HCPCS: 80053; 80061; 82306; 84439; 84443; 85025; 85651

== ENCOUNTER 2020-12-26 16:45 | Emergency (ER) | payer OTHER, SELFPAY ==
[2020-12-26 18:20] VITALS: BP 115/60; PULSE 51; RESP 19; TEMP 36.8; O2SAT 98; BMI 18.5
--- NOTE | 2020-12-26 18:42 | HMH.EDUTC ---
[facility] [place] Clinical Impression: Cellulitis of left arm Local reaction to pneumococcal vaccine Qualifiers: Encounter type: initial encounter Qualified Code(s): T50.A95A - Adverse effect of other bacterial vaccines, initial encounter Disposition: Home, Self-Care Condition on Discharge: Good Instructions: Cellulitis Additional Instructions: Apply cool compresses to the affected site. Take tylenol or ibuprofen for pain. Take the keflex as directed. Follow up with Dr. Perales. GO TO THE ER FOR ANY WORSENING SYMPTOMS, ESPECIALLY FEVER, CHILLS Prescriptions: cephALEXin [cephALEXin 500mg capsule] 500 mg PO Q6H 10 Days #40 cap Transmission Status: Received by [facility] Referrals: Chavo Perales MD [Primary Care Provider] - Time of Disposition: 19:00 Medical Decision Making - Medical Records Medical records reviewed: No: I reviewed the patient's medical records. - Elmo Inquiry Pt receiving controlled substance: No Vital Signs: 12/26/20 18:20 12/26/20 19:02 Temperature 98.2 F 98.2 F Temperature Source Oral Pulse Rate 51 L Pulse Rate [Left] 51 L Respiratory Rate 19 14 Blood Pressure 115/60 Blood Pressure [Right Arm] 115/60 Blood Pressure Mean [Right Arm] 78 02 Sat by Pulse Oximetry 98 Medical Decision Narrative: there red area on her right upper arm developed today, 2 days after her flu and pneumococcal vaccine were given. [facility] [place] [place] - General Stated complaint: Flu&Pneumonia Shot both in R Arm,swollen and Red Time Seen by Provider: 12/26/20 18:42 Mode of Arrival: Ambulatory Source of Information: Patient Limitations: No Limitations Description of Symptoms (Recalled from Triage Doc. by RN): pt received her flu and pneumonia vaccines on 12/24 in her R arm. pt presents today with swelling, redness and warmth near the injection site of her arm that wraps around under her arm. HEENT Symptoms (Recalled from RN notes): No Resp Symptoms (Recalled from RN notes): No Skin Symptoms (Recalled from RN notes): Yes (redness, swelling and warmth on the upper R arm) MS Symptoms (Recalled from RN notes): No Functional Status (Recalled from RN notes): na - History of Present Illness Provider Complaint: She states that she got a flu immunization and a pneumonia vaccination 2 days ago. She was doing fine, but today she began having warmth and redness around the site on her right deltoid. Since then the red area has got larger. She denies any fever or chills. Or only complaint is soreness and pain at the site. - Related Data Home Medications Medication Instructions Recorded Confirmed Cholecalciferol (Vitamin D3) 1,000 unit PO DAILY 04/02/20 12/24/20 [Vitamin D3 1,000 Unit Cap] Ergocalciferol (Vitamin D2) 1,250 mcg PO WEEKLY 04/02/20 12/24/20 [Vitamin D2] Multivit-Min/Folic Acid/Vit K1 1 each PO DAILY 04/02/20 12/24/20 [Multi For Her 50 Plus Softgel] Buspirone HCl [Buspar 5mg tablet] 5 mg PO BID 06/14/20 12/24/20 meloxicam 7.5 mg tablet 7.5 mg PO DAILY PRN 09/23/20 12/24/20 Previous Rx's Medication Instructions Recorded budesonide-formoterol HFA 80 2 puff INHALATION BID #10.2 g 08/05/20 mcg-4.5 mcg/actuation aerosol inhaler alendronate 70 mg tablet 70 mg PO WEEKLY #20 tab 10/14/20 Diclofenac Sodium [Diclofenac 75mg 75 mg PO BID #30 tab 10/24/20 Tab] varenicline 1 mg tablet 1 mg PO BID #56 tab 12/24/20 cephALEXin [cephALEXin 500mg 500 mg PO Q6H 10 Days #40 cap 12/26/20 capsule] Allergies Allergy/AdvReac Type Severity Reaction Status Date / Time aspirin Allergy Intermediate I-ITCHING Verified 12/24/20 09:13 Penicillins Allergy Unknown Verified 12/24/20 09:13 - Worker's Comp Is this a Worker's Comp case?: No [facility] History - Hepatitis A Screen Drug use history?: No High risk sexual behaviors?: No History of sexually transmitted infection?: No Currently employed?: No Childcare worker?: No Do you have indoor plumbing?: Yes Do
[2020-12-26 19:02] VITALS: BP 115/60; PULSE 51; RESP 14; TEMP 36.8
== END 2020-12-26 19:06 | disposition home or self-care (01) ==
PROVIDERS: Emergency Provider Nurse Practitioner Family; PCP Emergency Medicine
DX: L03.114 Cellulitis of left upper limb (principal); T50.A95A Adverse effect of other bacterial vaccines, initial encounter
CPT/HCPCS: 99202; G0463

== ENCOUNTER → 2021-05-22 08:24 | Outpatient (CLI) | payer OTHER, SELFPAY ==
--- NOTE | 2021-05-22 08:30 | XR_ITS ---
FINAL REPORT CLINICAL HISTORY: bilateral knee pain FINDINGS: RIGHT KNEE: Four views of the right knee obtained. There is no acute fracture or dislocation. The joint spaces are intact.. There is no soft tissue abnormality. IMPRESSION: No acute fracture. Reviewed, Interpreted and Dictated by Rodrick Brumfield III, MD Transcribed by Dorothy Pena Authenticated by Rodrick Brumfield III, MD on 05/22/2021 10:13:52 AM [facility]
--- NOTE | 2021-05-22 08:30 | XR_ITS ---
FINAL REPORT CLINICAL HISTORY: bilateral knee pain FINDINGS: LEFT KNEE: Four views of the left knee obtained. There is no acute fracture or dislocation. There are mild degenerative changes. There is no soft tissue abnormality. There is no joint effusion. IMPRESSION: Mild degenerative changes. Reviewed, Interpreted and Dictated by Rodrick Brumfield III, MD Transcribed by Dorothy Pena Authenticated by Rodrick Brumfield III, MD on 05/22/2021 10:13:54 AM [facility]
== END ==
PROVIDERS: PCP Emergency Medicine; Visit Provider Orthopaedic Surgery
DX: M25.562 Pain in left knee (principal); M25.561 Pain in right knee
CPT/HCPCS: 73564

== ENCOUNTER 2021-06-04 17:46 | Emergency (ER) | payer OTHER, SELFPAY ==
[2021-06-04 18:15] VITALS: BP 131/86; PULSE 103; RESP 19; TEMP 36.8; O2SAT 95; BMI 18.8
[2021-06-04 18:35] LABS: Apearance,Urine Turbid (Clear); Color,Urine Dark Yellow (Yellow); Glucose,Urine (UA) Negative (Negative); Ketones,Urine Large (Negative); Protein,Urine 1+ (Negative)
[2021-06-04 18:36] LABS: Bilirubin,Urine 1+ (Negative); Blood, Urine 3+ (Negative); UTC Leukocyte Esterase,Urine Negative (Negative); UTC Nitrate,Urine Negative (Negative); Urobilinogen,Urine 0.2 EU/dl (0.2)
--- NOTE | 2021-06-04 18:42 | HMH.EDUTC ---
[facility] Disposition Clinical Impression: Abdominal pain Qualifiers: Abdominal location: unspecified location Qualified Code(s): R10.9 - Unspecified abdominal pain Disposition: Still a Patient Condition on Discharge: Fair Referrals: Chavo Perales MD [Primary Care Provider] - Medical Decision Making - Elmo Inquiry Pt receiving controlled substance: No Elmo was queried for this patient: No Vital Signs: 06/04/21 18:15 Temperature 98.2 F Temperature Source Oral Pulse Rate [Left] 103 H Respiratory Rate 19 Blood Pressure [Right Arm] 131/86 Blood Pressure Mean [Right Arm] 101 02 Sat by Pulse Oximetry 95 - Lab Data Lab results reviewed: Yes: I reviewed the patient's lab results. Lab Results 06/04/21 18:34: Urine Color Dark yellow, Urine Appearance Turbid, Urine pH 7.0, Ur Specific [place] 1.020, Urine Protein 1+, Urine Glucose (UA) Negative, Urine Ketones Large, Urine Blood 3+, Urine Nitrate Negative, Urine Bilirubin 1+ A, Urine Urobilinogen 0.2, Ur Leukocyte Esterase Negative 06/04/21 19:03: WBC 12.1 H, RBC 4.33, Hgb 14.2, Hct 43.0, MCV 99.4 H, MCH 32.7 H, MCHC 32.9, RDW 12.8, Plt Count 335, MPV 7.7, Neut % (Auto) 74.8, Lymph % (Auto) 16.7, [place] % (Auto) 6.4, Eos % (Auto) 0.8, Baso % (Auto) 1.3, Neut # (Auto) 9.1 H, Lymph # (Auto) 2.0, [place] # (Auto) 0.8, Eos # (Auto) 0.1, Baso # (Auto) 0.2 Result diagrams: 06/04/21 19:03 Orders (Tests/Meds): ED MEDICATIONS Generic Name Dose Route Start Last Admin Trade Name Freq PRN Reason Stop Dose Admin Sodium Chloride 1,000 mls @ 999 mls/hr 06/04/21 19:00 Sod Chlor 0.9% 1000ml Bag IV 06/04/21 20:00 .Q1H1M REJI Sodium Chloride 10 ml 06/04/21 18:54 Sodium Chloride 0.9% 10ml Flush Syringe IV 07/04/21 18:53 NEEDED PRN Maintain IV Site ORDERS Category Date Time Status CT abdomen pelvis wo con Stat Cat Scan 06/04/21 18:54 Taken Comprehensive Metabolic Panel Stat Lab 06/04/21 19:03 Received UA [Urinalysis and Microscopic] Stat Lab 06/04/21 18:13 Received Urine Culture Stat Micro 06/04/21 18:34 Ordered Medical Decision Narrative: Upon entering the room patient doubled over on Bed holding abdomen States that she is having lower abdominal pain Due to findings on UA discussed with patient and she denies being a diabetic and reports that she has had history of kidney stones and that when she had them before had similar pain like she is having now. States that she was having pain this morning in her lower abdomen and lasted most of the day then eased off but States that pressure in lower abdomen returned and hurting worse so she came in to get checked Due to pain in lower abdomen with hx of kidney stones Discussed with patient about transferr to the ED and patient agreed Called ED spoke with Brook RN and no room available at this time will hold in [facility] and transfer to the ED when bed available Room now available and patient was moved to room 1 in ER Patient states that since IV fluids started pain has decreased some and comes and goes [facility] HPI - General Stated complaint: possuble bladder infection Time Seen by Provider: 06/04/21 18:42 Mode of Arrival: Ambulatory Source of Information: Patient Limitations: No Limitations Description of Symptoms (Recalled from Triage Doc. by RN): pt c/o pain with urination x2 days. HEENT Symptoms (Recalled from RN notes): No Resp Symptoms (Recalled from RN notes): No Skin Symptoms (Recalled from RN notes): No MS Symptoms (Recalled from RN notes): No Functional Status (Recalled from RN notes): wnl - History of Present Illness Provider Complaint: Patient states that she has been having pain in her lower abdomen and having pain with urination State that she was doubled over in bed earlier with pain and this evening when she was still having pain in her lower abdomen and difficulty urinating she decided to come in and get checked States that she has a history of kidney stones and feels kind of like it did
--- NOTE | 2021-06-04 18:54 | CT_ITS ---
PROCEDURE INFORMATION: Exam: CT Abdomen And Pelvis Without Contrast Exam date and time: 06/04/2021 7:04 PM Age: 61 years old Clinical indication: Abdominal pain; Flank; Right; Prior surgery; Surgery date: 6+ months; Surgery type: 2 c-sections; Additional info: Lower abd pain; HX of kidney stones TECHNIQUE: Imaging protocol: Computed tomography of the abdomen and pelvis without contrast. Radiation optimization: All CT scans at this facility use at least one of these dose optimization techniques: automated exposure control; mA and/or kV adjustment per patient size (includes targeted exams where dose is matched to clinical indication); or iterative reconstruction. COMPARISON: ABDPELW/WO CT ABD PELVIS W/WO CONTRAST 08/09/2015 9:14 AM FINDINGS: Lungs: Nonspecific right anterior basilar streaky opacities with accompanying cicatricial bronchiolectasis indicate minor parenchymal scarring.There is a pulmonary parenchymal calcification in the left lower lobe consistent with remote granulomatous organism exposure. Pleural spaces: There are no pleural effusions. Heart: The visualized portions of the heart are unremarkable. There is no evidence of pericardial fluid collections. Liver: The liver demonstrates punctate calcifications, consistent with remote granulomatous organism exposure. Gallbladder and bile ducts: A large calcified gallstone is present measuring 2.6 cm. No gallbladder wall thickening or pericholecystic fluid. Pancreas: Noncontrast images of the pancreas are within range of normal. Spleen: The spleen demonstrates punctate calcifications, consistent with remote granulomatous organism exposure. Adrenal glands: The adrenal glands are normal. Kidneys and ureters: There is a tiny nonobstructing left renal collecting system calcification. No hydronephrosis. The kidneys are otherwise within range of normal. Stomach and bowel: Lack of gastrointestinal contrast significantly limits evaluation of bowel. The stomach is normal. The duodenum is unremarkable. There is mildly excessive colonic stool content. Unopacified loops of small bowel are within range of normal. Appendix: No evidence of appendicitis. Intraperitoneal space: There is a small amount of free fluid present. No evidence of intraperitoneal free air. Vasculature: The aorta and iliac arteries demonstrate moderate to severe atherosclerotic calcification. There are a few benign phleboliths in the pelvis which are inseparable from the distal ureters but no secondary changes the the to favor ureteral stone. These are also stable since 08/09/2015. Lymph nodes: Evaluation of adenopathy is limited due to lack of intravenous and gastrointestinal contrast. Urinary bladder: The bladder is decompressed. There is mild bladder wall thickening. Reproductive: The uterus is either atrophic or absent. Bones/joints: There are severe degenerative changes of the hip joints. There are mild degenerative changes of the symphyseal pubic joint. There are mild degenerative changes of the sacroiliac joints. There is mild diffuse osteopenia. There is no evidence of acute fracture. The thoracolumbar spine demonstrates mild degenerative changes at multiple levels. Soft tissues: Unremarkable. Other findings: Evaluation is limited by the lack of intravenous contrast. IMPRESSION: 1. Large gallstone in the gallbladder. 2. Mild bladder wall thickening suggesting incomplete distention, chronic outflow obstruction or cystitis. 3. Minor amount of non-specific free pelvic fluid. 4. Mild constipation. 5. Small nonobstructing left nephrolith.
[2021-06-04 19:30] LABS: Microscopic, Urine URINE MICROSCOPIC (MICROSCOPIC)
[2021-06-04 19:35] LABS: Basophils # 0.2 K/mm3 (0-0.2); Basophils % 1.3 % (0.1-2.0); Eosinophils # 0.1 K/mm3 (0.0-0.4); Eosinophils % 0.8 % (0.1-12.0); Hemoglobin 14.2 g/dL (12.2-16.2); Lymphocytes % 16.7 % (10-50); Mean Corpuscular HGB Conc 32.9 g/dL (31.8-35.4); Mean Corpuscular Hemoglobin 32.7 pg (27.0-31.2); Mean Corpuscular Volume 99.4 fl (81-99); Mean Platelet Volume 7.7 fl (7.4-10.4); Monocytes # 0.8 K/mm3 (0.1-1.0); Monocytes % 6.4 % (1.7-9.3); Neutrophils # 9.1 K/mm3 (1.8-7.8); Neutrophils % 74.8 % (37.0-80.0); Platelet Count 335 K/mm3 (142-424); Red Blood Count 4.33 M/mm3 (4.20-5.40); Red Cell Distribution Width 12.8 % (11.5-17.5); White Blood Count 12.1 K/mm3 (4.8-10.8)
[2021-06-04 19:44] LABS: Potassium 3.9 mmoL/L (3.5-5.1); Sodium 140 mmol/L (136-145)
[2021-06-04 19:46] LABS: Alanine Aminotransferase 14 U/L (12-78); Alkaline Phosphatase 145 U/L (38-126); Aspartate Amino Transferase 29 U/L (14-36); Bilirubin,Total 0.7 mg/dl (0.2-1.3); Blood Urea Nitrogen 9 mg/dl (7-17); Creatinine Clearance Estimated 87 mL/min (50-200); Estimated Glomerular Filt Rate 126 ml/min (>60); GFR (African American) 153 ML/MIN (>60)
[2021-06-04 19:47] LABS: Albumin Level 4.2 g/dl (3.5-5.0); Albumin/Globulin Ratio 1.1 (1.1-1.8); Carbon Dioxide 30 mmol/L (22.0-30.0); Globulin 3.7 g/dL (1.3-3.2); Glucose 90 mg/dl (74-100); Total Protein,Serum 7.9 g/dl (6.3-8.2)
[2021-06-04 20:13] VITALS: BP 134/77; PULSE 88; RESP 19; TEMP 36.7; O2SAT 100; BMI 18.3
[2021-06-04 20:33] LABS: Anion Gap 11.9 mEq/L (5-15); Chloride 102 mmol/L (98-107)
[2021-06-04 20:39] LABS: Appearance,Urine CLEAR (Clear); Blood, Urine 3+ (Negative); Color,Urine YELLOW (Yellow); Glucose,Urine (UA) Negative (Negative); Ketones,Urine 2+ (Negative); Leukocyte Esterase,Urine Negative (Negative); Nitrate,Urine Negative (Negative); PH,Urine 6.5 (5.0-8.5); Protein,Urine TRACE (Negative); Specific Gravity, Urine 1.015 (1.005-1.030); Urobilinogen,Urine 0.2 EU/dl (0.2)
--- NOTE | 2021-06-04 20:40 | HMH.EDGENADL ---
ED Disposition Clinical Impression: Cystitis, Bladder wall thickening Abdominal pain Qualifiers: Abdominal location: unspecified location Qualified Code(s): R10.9 - Unspecified abdominal pain Disposition: Home, Self-Care Condition on Discharge: Good Instructions: DI for Acute Cystitis Additional Instructions: You have been evaluated for lower abdominal pain. Your bladder wall was quite thick on CT scan. This is concerning for inflammation, cystitis. Please take Macrobid as prescribed. Take Pyridium for bladder spasm. Water to stay hydrated. Follow-up with Dr. Perales for urine culture result. Return to the emergency department for any new or worsening symptoms. Prescriptions: nitrofurantoin macrocrystaL [Macrodantin 100mg capsule] 100 mg PO BID #10 cap Transmission Status: Pending to [facility] Phenazopyridine HCl [Pyridium 200mg Tablet] 200 mg PO TID #12 tab Transmission Status: Pending to [facility] Referrals: Chavo Perales MD [Primary Care Provider] - Time of Disposition: 20:45 - Critical Care Critical Care Time: No Attestation: On 06/04/21, the high probability of a clinically significant, sudden or life threatening deterioration of the following system(s) required my full and direct attention, intervention and personal management. The time I documented below is in addition to time spent performing reported procedures but includes the following listed in this critical care notation. Medical Decision Making - Medical Records Medical records reviewed: Yes: I reviewed the patient's medical records. - Elmo Inquiry Pt receiving controlled substance: No Vital Signs: 06/04/21 18:15 06/04/21 20:13 Temperature 98.2 F 98.0 F Temperature Source Oral Oral Pulse Rate [Left] 103 H 88 Respiratory Rate 19 19 Blood Pressure [Right Arm] 131/86 134/77 Blood Pressure Mean [Right Arm] 101 96 Blood Pressure Source [Right Arm] Automatic Cuff 02 Sat by Pulse Oximetry 95 100 Oxygen Delivery Method Room Air - Lab Data Lab Results 06/04/21 18:34: Urine Color Dark yellow, Urine Appearance Turbid, Urine pH 7.0, Ur Specific [place] 1.020, Urine Protein 1+, Urine Glucose (UA) Negative, Urine Ketones Large, Urine Blood 3+, Urine Nitrate Negative, Urine Bilirubin 1+ A, Urine Urobilinogen 0.2, Ur Leukocyte Esterase Negative 06/04/21 19:03: WBC 12.1 H, RBC 4.33, Hgb 14.2, Hct 43.0, MCV 99.4 H, MCH 32.7 H, MCHC 32.9, RDW 12.8, Plt Count 335, MPV 7.7, Neut % (Auto) 74.8, Lymph % (Auto) 16.7, Ida % (Auto) 6.4, Eos % (Auto) 0.8, Baso % (Auto) 1.3, Neut # (Auto) 9.1 H, Lymph # (Auto) 2.0, Ida # (Auto) 0.8, Eos # (Auto) 0.1, Baso # (Auto) 0.2 06/04/21 19:03: Sodium 140, Potassium 3.9, Chloride 102, Carbon Dioxide 30, Anion Gap 11.9, BUN 9, Creatinine 0.50 L, Estimated Creat Clear 87, Estimated GFR 126, Est GFR ( Amer) 153, Glucose 90, Calcium 9.0, Total Bilirubin 0.7, AST 29, ALT 14, Alkaline Phosphatase 145 H, Total Protein 7.9, Albumin 4.2, Globulin 3.7 H, Albumin/Globulin Ratio 1.1 Result diagrams: 06/04/21 19:03 06/04/21 19:03 Orders (Tests/Meds): ED MEDICATIONS Generic Name Dose Route Start Last Admin Trade Name Freq PRN Reason Stop Dose Admin Sodium Chloride 1,000 mls @ 999 mls/hr 06/04/21 19:00 06/04/21 19:48 Sod Chlor 0.9% 1000ml Bag IV 06/04/21 20:00 999 mls/hr .Q1H1M REJI Administration Ceftriaxone Sodium 1 gm/ 50 mls @ 100 mls/hr 06/04/21 20:45 Sodium Chloride IV 06/18/21 20:44 Q24H REJI Sodium Chloride 10 ml 06/04/21 18:54 Sodium Chloride 0.9% 10ml Flush Syringe IV 07/04/21 18:53 NEEDED PRN Maintain IV Site Discontinued Medications Generic Name Dose Route Start Last Admin Trade Name Freq PRN Reason Stop Dose Admin Ketorolac Tromethamine 15 mg 06/04/21 20:38 Ketorolac 30mg/Ml Vial IV 06/04/21 20:39 ONCE ONE Phenazopyridine HCl 200 mg 06/04/21 20:38 Phenazopyridine 200mg Tablet PO 06/04
[2021-06-04 20:54] LABS: Bacteria,Urine 3+ /lpf; Bilirubin,Urine 1+ (Negative); RBC,Urine 20-50 #/hpf (0-3)
[2021-06-04 21:20] VITALS: BP 141/74; PULSE 93; RESP 16; TEMP 36.6; O2SAT 97
== END 2021-06-04 21:24 | disposition home or self-care (01) ==
LOC: UTC 19:00 → ER 19:52
PROVIDERS: Emergency Medicine; Nurse Practitioner; Emergency Provider Emergency Medicine; PCP Emergency Medicine
DX: N30.00 Acute cystitis without hematuria (principal); K80.80 Other cholelithiasis without obstruction; Z88.0 Allergy status to penicillin; F17.210 Nicotine dependence, cigarettes, uncomplicated
CPT/HCPCS: 74176; 80053; 81001; 81003; 85025; 87086; 87088; 87186; 96365; 96375; 99284; J0696

== ENCOUNTER → 2021-08-01 14:12 | Outpatient (CLI) | payer OTHER, SELFPAY ==
[2021-08-01 17:21] LABS: Basophils # 0.1 K/mm3 (0-0.2); Basophils % 2.6 % (0.1-2.0); Eosinophils # 0.4 K/mm3 (0.0-0.4); Eosinophils % 7.9 % (0.1-12.0); Hematocrit 39.2 % (37.0-47.0); Hemoglobin 12.8 g/dL (12.2-16.2); Lymphocytes # 2.3 K/mm3 (0.7-4.5); Lymphocytes % 44.9 % (10-50); Mean Corpuscular HGB Conc 32.8 g/dL (31.8-35.4); Mean Corpuscular Hemoglobin 31.9 pg (27.0-31.2); Mean Corpuscular Volume 97.4 fl (81-99); Monocytes # 0.4 K/mm3 (0.1-1.0); Monocytes % 7.5 % (1.7-9.3); Neutrophils # 1.9 K/mm3 (1.8-7.8); Neutrophils % 37.2 % (37.0-80.0); Platelet Count 340 K/mm3 (142-424); Red Blood Count 4.02 M/mm3 (4.20-5.40); Red Cell Distribution Width 13.5 % (11.5-17.5); White Blood Count 5.2 K/mm3 (4.8-10.8)
[2021-08-01 17:27] LABS: Alanine Aminotransferase 13 U/L (12-78); Albumin Level 3.9 g/dl (3.5-5.0); Albumin/Globulin Ratio 1.4 (1.1-1.8); Alkaline Phosphatase 103 U/L (38-126); Aspartate Amino Transferase 25 U/L (14-36); Blood Urea Nitrogen 10 mg/dl (7-17); Calcium 9.1 mg/dl (8.4-10.2); Carbon Dioxide 32 mmol/L (22.0-30.0); Chloride 103 mmol/L (98-107); Estimated Glomerular Filt Rate 126 ml/min (>60); GFR (African American) 153 ML/MIN (>60); Globulin 2.7 g/dL (1.3-3.2); Glucose 99 mg/dl (74-100); Sodium 139 mmol/L (136-145); Total Protein,Serum 6.6 g/dl (6.3-8.2)
[2021-08-01 17:37] LABS: Bilirubin,Total < 0.1 mg/dl (0.2-1.3)
[2021-08-01 17:43] LABS: Free T4 (Free Thyroxine) 1.21 ng/dl (0.78-2.19)
[2021-08-01 17:59] LABS: Thyroid Stimulating Hormone 2.03 uIU/mL (0.465-4.68)
[2021-08-01 18:50] LABS: Erythrocyte Sedimentation Rate 75 mm/hr (0-30)
== END ==
PROVIDERS: PCP Emergency Medicine; Visit Provider Emergency Medicine
DX: R10.9 Unspecified abdominal pain (principal)
CPT/HCPCS: 80053; 84439; 84443; 85025; 85651

== ENCOUNTER → 2021-08-15 13:25 | Outpatient (CLI) | payer OTHER, SELFPAY ==
--- NOTE | 2021-08-15 13:25 | CT_ITS ---
FINAL REPORT TECHNIQUE: Axial images were obtained from the lung apex to the mid abdomen by computed tomography. Coronal reformatted images were obtained. This study was performed with techniques to keep radiation doses as low as reasonably achievable, (ALARA). Individualized dose reduction techniques using automated exposure control or adjustment of mA and/or kV according to the patient''s size were employed. CLINICAL HISTORY: shortness of breath FINDINGS: There is no axillary adenopathy. There is no hilar or mediastinal adenopathy. Heart size is normal. There is no pericardial or pleural effusion. Limited images of the upper abdomen are unremarkable. On the lung window images there are mild changes of emphysema and mild pulmonary scarring. No suspicious infiltrate or nodule is identified. IMPRESSION: Mild changes of emphysema and mild pulmonary scarring. Reviewed, Interpreted and Dictated by Rodrick Brumfield III, MD Transcribed by Kathleen Magaña Authenticated and [facility]
== END ==
PROVIDERS: PCP Emergency Medicine; Visit Provider Emergency Medicine
DX: R06.02 Shortness of breath (principal)
CPT/HCPCS: 71250

== ENCOUNTER 2021-08-16 20:28 | Emergency (ER) | payer OTHER, SELFPAY ==
[2021-08-16 20:37] VITALS: BP 103/69; PULSE 79; RESP 17; TEMP 37.2; O2SAT 96; BMI 18.8
--- NOTE | 2021-08-16 20:48 | HMH.EDUTC ---
[facility] [place] Clinical Impression: Exposure to COVID-19 virus Disposition: Home, Self-Care Condition on Discharge: Good Instructions: DI for COVID-19 (Suspected or Confirmed ) Additional Instructions: You have been tested for COVID19. Please isolate as if you are positive until test results received. Referrals: Chavo Perales MD [Primary Care Provider] - Time of Disposition: 20:53 Medical Decision Making - Elmo Inquiry Pt receiving controlled substance: No Orders (Tests/Meds): ORDERS Category Date Time Status Covid-19 Nasal PCR ([facility]) Routine Lab 08/16/21 20:39 [place]dered [facility] [place] - General Stated complaint: covid test Time Seen by Provider: 08/16/21 20:48 - History of Present Illness Provider Complaint: Patient states her best friend tested positive for COVID19 last night after she was around her all day yesterday. She is currently not having any symptoms but would like to be tested. Onset (ago): day(s) (1) Relieving factors: none Exacerbating factors: none Associated symptoms: denies other symptoms Treatments prior to arrival: none - Related Data Home Medications Medication Instructions Recorded Confirmed Cholecalciferol (Vitamin D3) 1,000 unit PO DAILY 04/02/20 08/01/21 [Vitamin D3 1,000 Unit Cap] Ergocalciferol (Vitamin D2) 1,250 mcg PO WEEKLY 04/02/20 08/01/21 [Vitamin D2] Multivit-Min/Folic Acid/Vit K1 1 each PO DAILY 04/02/20 08/01/21 [Multi For Her 50 Plus Softgel] meloxicam 7.5 mg tablet 7.5 mg PO DAILY PRN 09/23/20 08/01/21 buspirone 5 mg tablet 5 mg PO BID 08/01/21 08/01/21 Previous Rx's Medication Instructions Recorded alendronate 70 mg tablet 70 mg PO WEEKLY #20 tab 10/14/20 Diclofenac Sodium [Diclofenac 75mg 75 mg PO BID #30 tab 10/24/20 Tab] fluticasone propionate 50 1 spray INTRANASAL DAILY #16 g 02/03/21 mcg/actuation nasal spray,suspension nitrofurantoin macrocrystaL 100 mg PO BID #10 cap 06/04/21 [Macrodantin 100mg capsule] gabapentin 300 mg capsule 300 mg PO TID #90 cap 08/01/21 budesonide-formoterol HFA 80 See Rx Instructions .ROUTE 08/07/21 mcg-4.5 mcg/actuation aerosol .COMPLEX #10.2 g inhaler Allergies Allergy/AdvReac Type Severity Reaction Status Date / Time aspirin Allergy Intermediate I-ITCHING Verified 08/01/21 13:20 Penicillins Allergy Unknown Verified 08/01/21 13:20 [facility] History - Hepatitis A Screen Attestation statement:: This patient has been screened for Hepatitis A risk factors. I have reviewed the patient's past medical history: Yes Medical History: Reports:: Valvular Heart Disease Denies:: Cancer, Diabetes Mellitus Type 1, Diabetes Mellitus Type 2, Internal Pacemaker, MRSA, Seizures Other Medical History: Reports: Arthritis. Denies: Blood Transfusion Reaction Laterality Cases: Bilateral: Tonsillectomy Other Surgeries: Yes: Colonoscopy, . No: Pacemaker Amputation: No Fractures: Yes Comment: little finger on left hand fx'd, both wrist,collar bone - Social History Smoking Status: Current every day smoker Tobacco Type: cigarettes # Packs/Day (cigarettes): 1 Alcohol Intake: current Alcohol Intake Frequency:: holidays/special occasions only Substance Use Type: denies use Occupational Status: employed Housing: house Household Members: other Family Hx:: Unable to obtain ROS Obtained: Yes All systems reviewed & no additional complaints Physical Exam - General General appearance: alert, in no apparent distress - Head Head exam: normocephalic - Eye Eye exam: Present: PERRL - ENT ENT exam: Present: normal oropharynx, TM's normal bilaterally - Neck Neck exam: Present: normal inspection. Absent: lymphadenopathy - Chest Chest inspection: Present: normal inspection, symmetric chest wall rise - Respiratory Respiratory exam: Present: normal lung sounds bilaterally. Absent: respiratory distress, wheezes - Cardiovascular Cardiovascular exam: Present: regular rate, normal rhythm
[2021-08-16 20:53] VITALS: BP 103/69; PULSE 79; RESP 17; TEMP 37.1
== END 2021-08-16 20:56 | disposition home or self-care (01) ==
PROVIDERS: Emergency Provider Physician Assistant; PCP Emergency Medicine
DX: Z20.822 Contact with and (suspected) exposure to COVID-19 (principal)
CPT/HCPCS: 99212; C9803; G0463; U0003; U0005

== ENCOUNTER 2021-09-11 04:26 | Inpatient (IN) | payer OTHER, SELFPAY ==
[2021-09-11] VITALS (37 sets, daily range): BP systolic 92–151; BP diastolic 46–89; PULSE 55–115; RESP 12–18; TEMP 36.3–38; O2SAT 92–100; BMI 16.6; BMI 18.6
--- NOTE | 2021-09-11 04:35 | CT_ITS ---
FINAL REPORT TECHNIQUE: After the administration of oral and intravenous contrast, axial images were obtained through the abdomen and pelvis by computed tomography. The study was performed with techniques to keep radiation dose as low as reasonably achievable, (ALARA). Individual dose reduction techniques using automated exposure control or adjustment of mA and/or kV according to the patient's size were employed. CLINICAL HISTORY: ABDOMINAL PAIN, no bowel movement x1 week COMPARISON: 06/04/2021 FINDINGS: Abdomen: There is mild right middle lobe atelectasis or pneumonia. The liver is normal in size and attenuation. A large gallstone is present. The spleen is unremarkable. The adrenals are normal. The pancreas is unremarkable. There is a less than 3 mm nonobstructing left renal stone. The aorta is normal in caliber. There is no free fluid or adenopathy. Pelvis: The appendix is not identified. There is marked wall thickening of the distal sigmoid colon and rectum with adjacent fat stranding. The more proximal colon is distended. There is a 3.7 x 1.3 cm fluid collection along the right wall of the distal sigmoid colon. The urinary bladder is unremarkable. There is no adenopathy. There is a small amount of free fluid, likely reactive. There are severe degenerative changes of the hips. IMPRESSION: Marked wall thickening of the sigmoid colon and rectum with adjacent inflammatory changes. Findings may represent inflammatory bowel the disease or severe colitis, neoplasm is not excluded but felt less likely. This causes colon obstruction. Fluid in the right lateral sigmoid wall is most worrisome for abscess. Pelvic free fluid, likely reactive. Cholelithiasis. Reviewed, Interpreted and Dictated by Rodrick Brumfield III, MD Transcribed by Susana Holman Authenticated and [facility]
[2021-09-11 04:47] LABS: Microscopic, Urine URINE MICROSCOPIC (MICROSCOPIC)
[2021-09-11 04:51] LABS: Appearance,Urine CLEAR (Clear); Blood, Urine 1+ (Negative); Color,Urine YELLOW (Yellow); Glucose,Urine (UA) Negative (Negative); Ketones,Urine 2+ (Negative); Leukocyte Esterase,Urine Negative (Negative); Nitrate,Urine Negative (Negative); PH,Urine 6.5 (5.0-8.5); Protein,Urine TRACE (Negative); Urobilinogen,Urine 0.2 EU/dl (0.2)
[2021-09-11 04:53] LABS: Bilirubin,Urine Negative (Negative)
[2021-09-11 04:54] LABS: Basophils % 0.3 % (0.1-2.0); Eosinophils # 0.1 K/mm3 (0.0-0.4); Eosinophils % 0.8 % (0.1-12.0); Hematocrit 37.6 % (37.0-47.0); Hemoglobin 12.9 g/dL (12.2-16.2); Lymphocytes # 2.4 K/mm3 (0.7-4.5); Lymphocytes % 26.8 % (10-50); Mean Corpuscular HGB Conc 34.2 g/dL (31.8-35.4); Mean Corpuscular Volume 90.8 fl (81-99); Mean Platelet Volume 6.8 fl (7.4-10.4); Monocytes # 0.6 K/mm3 (0.1-1.0); Monocytes % 6.5 % (1.7-9.3); Neutrophils # 5.9 K/mm3 (1.8-7.8); Neutrophils % 65.7 % (37.0-80.0); Platelet Count 458 K/mm3 (142-424); Red Blood Count 4.14 M/mm3 (4.20-5.40); Red Cell Distribution Width 13.2 % (11.5-17.5)
[2021-09-11 04:57] LABS: Alanine Aminotransferase 14 U/L (12-78); Albumin Level 3.9 g/dl (3.5-5.0); Albumin/Globulin Ratio 1.1 (1.1-1.8); Alkaline Phosphatase 121 U/L (38-126); Amylase 45 U/L (30-110); Aspartate Amino Transferase 24 U/L (14-36); Blood Urea Nitrogen 9 mg/dl (7-17); Calcium 9.4 mg/dl (8.4-10.2); Carbon Dioxide 30 mmol/L (22.0-30.0); Chloride 99 mmol/L (98-107); Creatinine Clearance Estimated 76 mL/min (50-200); Estimated Glomerular Filt Rate 126 ml/min (>60); GFR (African American) 153 ML/MIN (>60); Globulin 3.6 g/dL (1.3-3.2); Glucose 118 mg/dl (74-100); Lipase 34 U/L (23-300); Sodium 137 mmol/L (136-145); Total Protein,Serum 7.5 g/dl (6.3-8.2)
[2021-09-11 05:02] LABS: C-Reactive Protein 22.8 mg/L (0-4)
[2021-09-11 05:03] LABS: Amorphous Sediment,Urine 1+ /lpf; Bacteria,Urine 1+ /lpf; Mucus,Urine 1+ /lpf
[2021-09-11 05:05] LABS: Bilirubin,Total < 0.1 mg/dl (0.2-1.3)
--- NOTE | 2021-09-11 05:06 | PC.NURSE ---
Critical potassium of 3.0 called by Tiki in lab. notified.
[2021-09-11 05:16] LABS: Procalcitonin 0.059 ng/mL (0.0-2.0)
--- NOTE | 2021-09-11 05:18 | PC.NURSE ---
ORAL CONTRAST COMPLETED. RADIOLOGY MADE AWARE. PT AWARE OF PLAN FOR SCAN. BLANKET PROVIDED FOR COMFORT. NO COMPLAINTS VOICED. NO ACUTE DISTRESS NOTED.
[2021-09-11 05:26] LABS: Erythrocyte Sedimentation Rate 78 mm/hr (0-30)
--- NOTE | 2021-09-11 06:16 | HMH.EDNVD ---
ED Disposition Condition on Discharge: Serious - Critical Care Critical Care Time: No <Chavo Perales - Last Filed: 09/11/21 08:59> <Travis Ram - Last Filed: 09/11/21 13:35> Clinical Impression: Colitis, Abscess of sigmoid colon Bowel obstruction Qualifiers: Intestinal obstruction type: unspecified Intestinal obstruction extent: unspecified extent Qualified Code(s): K56.609 - Unspecified intestinal obstruction, unspecified as to partial versus complete obstruction Disposition: Still a Patient Instructions: DI for Urinary Tract Infection (UTI), DI for Urinary Tract Infection in Children Referrals: Chavo Perales MD [Primary Care Provider] - Attestation: On 09/11/21, the high probability of a clinically significant, sudden or life threatening deterioration of the following system(s) required my full and direct attention, intervention and personal management. The time I documented below is in addition to time spent performing reported procedures but includes the following listed in this critical care notation. Medical Decision Making - Medical Records Medical records reviewed: Yes: I reviewed the patient's medical records. - Elmo Inquiry Pt receiving controlled substance: No - Lab Data Lab results reviewed: Yes: I reviewed the patient's lab results. Result diagrams: 09/11/21 04:30 09/11/21 04:30 - CT Data CT Scan: Abdomen, Pelvis Time Received: 09:[address] Reviewed: Yes: I have viewed the radiologist's interpretation Preliminary Findings: Abnormal (seereport ) <Chavo Perales - Last Filed: 09/11/21 08:59> - Lab Data Result diagrams: 09/11/21 04:30 09/11/21 04:30 - Physician Consults Physician Consulted: Sugey Time: 10:56 Reason -: Surgical Eval/Care Comment/Response: Dr. Mayes is still in surgery. Discussed case over the phone with him with the assistance of a surgical assistant statistician. Discussed CT findings. He says he will call back. 1:18 PM: Dr. Mayes saw the patient in the emergency department and is taking her to surgery and will admit to his service. - Reevaluation(s) Time: 10:00 <Travis Ram - Last Filed: 09/11/21 13:35> Vital Signs: 09/11/21 04:26 09/11/21 04:30 09/11/21 05:37 Temperature 97.6 F Temperature Source Oral Pulse Rate 85 81 Pulse Rate [Left Radial] 89 Respiratory Rate 17 16 Blood Pressure 128/74 130/60 Blood Pressure [Right Arm] 128/74 Blood Pressure Mean 100 Blood Pressure Mean [Right Arm] 92 Blood Pressure Source [Right Arm] Automatic Cuff 02 Sat by Pulse Oximetry 100 96 98 Oxygen Delivery Method Room Air Room Air 09/11/21 06:00 09/11/21 07:02 09/11/21 07:30 Temperature Temperature Source Pulse Rate 81 86 70 Pulse Rate [Left Radial] Respiratory Rate 16 18 17 Blood Pressure 143/58 H 123/46 L 129/67 Blood Pressure [Right Arm] Blood Pressure Mean 92 71 87 Blood Pressure Mean [Right Arm] Blood Pressure Source [Right Arm] 02 Sat by Pulse Oximetry 99 97 94 L Oxygen Delivery Method Room Air Room Air 09/11/21 08:00 09/11/21 08:30 09/11/21 09:05 Temperature Temperature Source Pulse Rate 65 66 80 Pulse Rate [Left Radial] Respiratory Rate Blood Pressure 117/66 136/70 123/63 Blood Pressure [Right Arm] Blood Pressure Mean 78 87 82 Blood Pressure Mean [Right Arm] Blood Pressure Source [Right Arm] 02 Sat by Pulse Oximetry 95 95 96 Oxygen Delivery Method Room Air 09/11/21 09:31 09/11/21 10:01 09/11/21 10:19 Temperature Temperature Source Pulse Rate 73 78 88 Pulse Rate [Left Radial] Respiratory Rate Blood Pressure 128/71 151/68 H 150/72 H Blood Pressure [Right Arm] Blood Pressure Mean 90 95 98 Blood Pressure Mean [Right Arm] Blood Pressure Source [Right Arm] 02 Sat by Pulse Oximetry 97 98 99 Oxygen Delivery Method Room Air Room Air 09/11/21 10:30 09/11/21 11:00 09/11/21 11:31 Temperature Temperature Source Pulse Rate 80 83 76 Pulse
--- NOTE | 2021-09-11 06:19 | PC.NURSE ---
PT AND FRIEND UPDATED WITH PLAN OF CARE. NO COMPLAINTS VOICED. NO ACUTE DISTRESS NOTED.
--- NOTE | 2021-09-11 07:26 | PC.NURSE ---
checked on pt at this time, pt resting in bed, lights off in room, visitor at BS. States no needs at this time. Will continue to monitor
--- NOTE | 2021-09-11 08:51 | PC.NURSE ---
paging dr longo per request
--- NOTE | 2021-09-11 08:51 | PC.NURSE ---
Paged Dr. Mayes to call ER back
--- NOTE | 2021-09-11 08:57 | PC.NURSE ---
Dr. Perales at speaking with patient
--- NOTE | 2021-09-11 09:06 | PC.NURSE ---
RODERICK Sellers from OR called back on behalf of Dr. Mayes who is in surgery. Notified her of CT report finding for pt. States she will notify Dr. Mayes.
--- NOTE | 2021-09-11 09:10 | XR_ITS ---
FINAL REPORT CLINICAL HISTORY: baseline, cough FINDINGS: A single portable view of the chest was obtained. The heart size and pulmonary vascularity are within normal limits. The mediastinum is within normal limits. No acute pulmonary abnormality is identified. The bony thorax is intact. IMPRESSION: No active cardiopulmonary disease. Reviewed, Interpreted and Dictated by Rodrick Brumfield III, MD Transcribed by Kathleen Magaña Authenticated and [facility]
--- NOTE | 2021-09-11 09:27 | ECG_ITS ---
APPROVED REPORT Exam: Resting ECG HR:77 bpm ECG Measurements Heart Rate 77 AXES ME 141 P 81 QRSd 94 QRS 44 QT 409 T 74 QTc 441 Conclusion SINUS RHYTHM POSSIBLE LEFT ATRIAL ENLARGEMENT [-0.1mV P-WAVE IN V1/V2] POSSIBLE RIGHT VENTRICULAR CONDUCTION DELAY [RSR (QR) IN V1/V2] BORDERLINE ECG UNCONFIRMED REPORT Electronically signed by : Dilip Becker MD 09/11/2021 16:56:16
[2021-09-11 09:37] LABS: Coronavirus 19, PCR Not Detected (NotDetected); Influenza A, PCR Not Detected (NotDetected); Influenza B, PCR Not Detected (NotDetected)
[2021-09-11 09:38] LABS: Lactic Acid 0.7 mmol/L (0.7-2.1)
--- NOTE | 2021-09-11 09:58 | PC.NURSE ---
Dr Ram at bedside
--- NOTE | 2021-09-11 10:12 | PC.NURSE ---
pt ambulatory to the restroom with no complications.
--- NOTE | 2021-09-11 10:27 | PC.NURSE ---
still awaiting call from general surgery.
--- NOTE | 2021-09-11 10:53 | PC.NURSE ---
BELEN HUGHES speaking with Dr. Mayes
--- NOTE | 2021-09-11 11:39 | PC.NURSE ---
pt requesting Ice chips, BELEN HUGHES states pt needs to remain NPO at this time. Updated pt.
--- NOTE | 2021-09-11 12:51 | PC.NURSE ---
no needs at this time. pt resting
--- NOTE | 2021-09-11 13:21 | PC.NURSE ---
Dr Mayes at the bedside to see pt
--- NOTE | 2021-09-11 13:29 | PC.NURSE ---
dr longo states he will be taking pt to the OR to have patient ready for surgery.
--- NOTE | 2021-09-11 13:35 | PC.NURSE ---
KURT in the office states donta will handle admission orders
--- NOTE | 2021-09-11 13:55 | PC.NURSE ---
pt to OR via stretcher with surgery staff.
--- NOTE | 2021-09-11 14:03 | HMH.GSHP ---
HPI HPI: Patient is a 61-year-old female who presented to the emergency department with 1 week history of obstipation and increasing abdominal pain. She states that about 8 days ago she thought she may have a urinary tract infection. She was being treated for this. She then developed some obstipation and difficulty moving her bowels. She was prescribed stool softeners. Her symptoms persisted and progressed. She presented to the emergency department due to the severity of her abdominal pain early this morning. CT scan was performed which revealed findings of marked wall thickening of the sigmoid colon and rectum with adjacent inflammatory changes. It was felt that inflammatory bowel disease or severe colitis or neoplasm could not be excluded. Surgical consultation was obtained. Of note the patient denies any recent changes in bowel habits preceding this. Her bowels have not moved for 1 week. She has had a colonoscopy in March 2020 as well as in 2014 with findings of adenomatous polyps and diverticulosis. [facility] History I have reviewed the patient's past medical history: Yes Medical History: Reports:: Valvular Heart Disease Denies:: Cancer, Diabetes Mellitus Type 1, Diabetes Mellitus Type 2, Internal Pacemaker, MRSA, Seizures *Have you ever received a pneumonia vaccine?: Yes *Have you received a flu vaccine this season?: Yes Other Medical History: Reports: Arthritis. Denies: Blood Transfusion Reaction Laterality Cases: Bilateral: Tonsillectomy Other Surgeries: Yes: Colonoscopy, . No: Pacemaker Amputation: No Fractures: Yes - *Social History Smoking Status: Current every day smoker Tobacco Type: cigarettes # Packs/Day (cigarettes): 1 Alcohol Intake: current Alcohol Intake Frequency:: holidays/special occasions only Substance Use Type: denies use *Occupational Status:: employed Housing: house Household Members: other *Travel in the last 8 weeks: None Family Hx:: Unable to obtain Review of Systems - Review of Systems Review of systems:: pertinent systems reviewed and negative unless documented below - *Neurologic Denies seizure-like activity Meds Home Medications Medication Instructions Recorded Confirmed Type Cholecalciferol (Vitamin D3) 1,000 unit PO DAILY 04/02/20 09/09/21 History [Vitamin D3 1,000 Unit Cap] Ergocalciferol (Vitamin D2) 1,250 mcg PO WEEKLY 04/02/20 09/09/21 History [Vitamin D2] Multivit-Min/Folic Acid/Vit K1 1 each PO DAILY 04/02/20 09/09/21 History [Multi For Her 50 Plus Softgel] meloxicam 7.5 mg tablet 7.5 mg PO DAILY PRN 09/23/20 09/09/21 History alendronate 70 mg tablet 70 mg PO WEEKLY #20 tab 10/14/20 09/09/21 Rx Diclofenac Sodium [Diclofenac 75mg 75 mg PO BID #30 tab 10/24/20 09/09/21 Rx Tab] fluticasone propionate 50 1 spray INTRANASAL DAILY #16 g 02/03/21 09/09/21 Rx mcg/actuation nasal spray,suspension nitrofurantoin macrocrystaL 100 mg PO BID #10 cap 06/04/21 09/09/21 Rx [Macrodantin 100mg capsule] buspirone 5 mg tablet 5 mg PO BID 08/01/21 09/09/21 History budesonide-formoterol HFA 80 See Rx Instructions .ROUTE 08/07/21 09/09/21 Rx mcg-4.5 mcg/actuation aerosol .COMPLEX #10.2 g inhaler gabapentin 600 mg tablet 600 mg PO TID #90 tab 08/27/21 09/09/21 Rx bisacodyl 5 mg tablet,delayed 5 mg PO HS 3 Days #3 tab 09/10/21 09/10/21 Rx release polyethylene glycol 3350 17 17 g PO DAILY #238 g 09/10/21 09/10/21 Rx gram/dose oral powder Allergies Allergy/AdvReac Type Severity Reaction Status Date / Time aspirin Allergy Intermediate I-ITCHING Verified 09/09/21 14:05 Penicillins Allergy Unknown Verified 09/09/21 14:05 Exam Vital signs and Labs for Last 24 Hours: Temp Pulse Resp BP Pulse Ox 97.6 F 61 16 113/61 94 L 09/11/21 04:26 09/11/21 13:00 09/11/21 13:00 09/11/21 13:00 09/11/21 13:00 Laboratory Results - last 24 hr 09/11/21 04:30: Urine Color Yellow, Urine Appearance Clear, Urine pH 6.5, Ur Specific [place]
--- NOTE | 2021-09-11 14:07 | P.PN_ITS ---
[facility] Anesthesia Checklist - Patient Identification Patient Identification: Arm Band - Structural Data Admitted From: Emergency Dept Planned Operative Procedure/s: Ex. lap Consent for Planned Operative Procedure(s) Verified: Yes - NPO Status Verified Time NPO: 00:00 - Additional verifications Anesthesia Reactions: No Hx Blood Transfusions: No Blood Transfusion Reaction: No - Airway Assessment C-Spine Mobility Assessed: Yes TMJ Mobility Assessed: Yes Dentition: Poor Dentition (3 remaining, loose. Advised patient of risk of damage. Pat verbalized understanding) - Neurological Assessment Level of Consciousness: Awake Hx Seizures: No Numbness or tingling in extremities: No - Anesthesia Plan Anesthesia Risk discussed: Yes Anesthesia Plan: Verified ASA Class: II (II E) Anesthesia Type: General [facility] History I have reviewed the patient's past medical history: Yes Medical History: Reports:: Valvular Heart Disease Denies:: Cancer, Diabetes Mellitus Type 1, Diabetes Mellitus Type 2, Internal Pacemaker, MRSA, Seizures *Have you ever received a pneumonia vaccine?: Yes *Have you received a flu vaccine this season?: Yes Other Medical History: Reports: Arthritis. Denies: Blood Transfusion Reaction Anesthesia experience/problems:: None Laterality Cases: Bilateral: Tonsillectomy Other Surgeries: Yes: Colonoscopy, . No: Pacemaker Amputation: No Fractures: Yes - *Social History Smoking Status: Current every day smoker Tobacco Type: cigarettes # Packs/Day (cigarettes): 1 Alcohol Intake: current Alcohol Intake Frequency:: holidays/special occasions only Substance Use Type: denies use *Occupational Status:: employed Housing: house Household Members: other *Travel in the last 8 weeks: None Family Hx:: Unable to obtain
--- NOTE | 2021-09-11 18:30 | HMH.OPNOTE ---
Date of procedure: 09/11/21 Pre-op Diagnosis:: Large bowel obstruction Post-op Diagnosis:: Same Procedure performed:: Exploratory laparotomy with distal sigmoid resection with en bloc resection of appendix and right ovary. Surgeon:: Rodrick Mayes MD Anesthesia: OPHELIA Estimated blood loss (mL): 400 Clinical Note:: Patient is a 61-year-old female who presented to the emergency department with 1 week history of obstipation and increasing abdominal pain. She states that about 8 days ago she thought she may have a urinary tract infection. She then developed some obstipation and difficulty moving her bowels. She was prescribed stool softeners. Her symptoms persisted and progressed. She presented to the emergency department due to the severity of her abdominal pain early this morning. CT scan was performed which revealed findings of marked wall thickening of the sigmoid colon and rectum with adjacent inflammatory changes. It was felt that inflammatory bowel disease or severe colitis or neoplasm could not be excluded. Surgical consultation was obtained. Of note the patient denies any recent changes in bowel habits preceding this. Her bowels have not moved for 1 week. She has had a colonoscopy in March 2020 as well as in 2014 with findings of adenomatous polyps and diverticulosis. Of note, the patient had presented to the emergency department in May of this year with complaints of lower abdominal pain. Work-up included CT scan which revealed some thickening of the bladder and she was treated with antibiotics for urinary tract infection. Operative findings:: Patient had a inflammatory mass in the rectosigmoid colon with small abscess within the wall of the colon. Mass was densely adherent to surrounding pelvic structures including appendix and right ovary. There was an intense fibrotic response in the pelvis. Resection was quite difficult and delineation of the anatomy was rather difficult. Ultimately opening of the specimen on the back table revealed this to likely be profound stricture without lesion consistent with neoplasm. Operative note:: Consent was obtained and patient was taken to the operating room. She was positioned in a supine position. General anesthesia was induced via endotracheal tube. Abdomen was prepped and draped in the standard surgical fashion. Limited lower abdominal incision was made. Dissection was carried down through subcutaneous tissues and fascia. Peritoneum was entered. Limited exploration revealed massively distended right, transverse, and descending colon. Palpation revealed a rather large palpable mass in the pelvis. Consideration was being given for merely diversion. However it was felt that this would ultimately require resection of this lesion in the pelvis as it appeared to be inflammatory mass. Attention was turned to resection. Please note that there was omentum from the transverse colon densely adherent to this inflammatory lesion and this was sequentially clamped divided and ligated with Vicryl ties. Very prolonged dissection was carried out as the anatomy was difficult to discern due to the chronic inflammation and surrounding fibrosis within the pelvis. Peritoneum was incised with electrocautery. It was noted that the right fallopian tube was densely adherent to this mass and could not be dissected free. It was clamped divided and ligated with Surgilon ties ultimately to allow for en bloc resection. In a similar fashion the appendix was densely adherent to this inflammatory mass . Plan was made for appendectomy. A window was created at the base of the appendix between the appendix and the mesoappendix. Appendix was multiply ligated with several 0 Surgilon ties and sharply divided. The mesoappendix was divided with the Enseal device. This mass was quite adherent to the gonadal vessels. Multiple hemoclips were applied and several ties were applied to some oozing portions of said ves
--- NOTE | 2021-09-11 18:34 | P.PN_ITS ---
[facility] Anesthesia Record Part I Intake, IV Amount: 3,500 Estimated blood loss (mL): 400 Urine output (mL): 150 Blood Pressure: 137/74 SaO2: 96 Pulse Rate: 115 Respiratory Rate: 14 Temperature: 98 F Patient is:: Awake, Stable Stable to PACU at:: 18:30
--- NOTE | 2021-09-11 19:34 | SUR.PHASEI ---
1902 called and provided detailed report to Celeste Blankenship med/assistant professor of surgery. 1906 transported via bed with 3L O2 via nasal cannula to med/surg SD room. vital signs stable. denies pain. resting comfortably. left pt in stable condition with Celeste Blankenship med/assistant professor of surgery at bedside.
[2021-09-11 19:53] LABS: Microscopic,Cath URINE MICROSCOPIC (MICROSCOPIC)
[2021-09-11 20:00] LABS: Appearance,Urine/Cath CLEAR (Clear); Blood, Urine/Cath 1+ (Negative); Color,Urine/Cath YELLOW (Yellow); Glucose,Urine/Cath (UA) Negative (Negative); Ketones,Urine/Cath 2+ (Negative); Leukocyte Esterase,Cath Negative (Negative); Nitrate,Cath Negative (Negative); Protein,Urine/Cath TRACE (Negative); Specific Gravity, Urine/Cath 1.015 (1.005-1.030)
[2021-09-11 20:06] LABS: Bilirubin,Cath Negative (Negative)
[2021-09-11 20:31] LABS: Bacteria,Urine/Cath TRACE /lpf; RBC,Urine/Cath Occasional # /hpf (0-3); WBC,Urine/Cath Occasional #/hpf (0-3)
[2021-09-12] VITALS (12 sets, daily range): BP systolic 80–106; BP diastolic 35–59; PULSE 70–100; RESP 16–29; TEMP 36.3–36.9; O2SAT 87–100; BMI 18.7
--- NOTE | 2021-09-12 04:40 | PC.NURSE ---
pt has rested intermittently this shift, has complained of pain 3 times so far this shift and was treated per MAR with favorable results, remains on 1L NC room air sat at 0300 87%, dressing in place to midline incision, colostomy present with a small amount of sanguineous drainage noted, Cayden drain in place on right side with sanguineous drainage noted as well, walker remains in place with 120 mL out so far, pt SBP has been 89-112, HR has been 71-105,
--- NOTE | 2021-09-12 06:31 | P.PN_ITS ---
Subjective Narrative: Patient is postoperative day #1 after sigmoid resection and creation of end colostomy for complete bowel obstruction likely secondary to severe diverticular stricture with inflammation and adhesions to surrounding structures. She is without significant complaints. She does have some pain. Labs are pending. Progress Note: A&P Assessment and Plan for All Diagnoses:: N.p.o. except ice chips. Continue drain tube for now and Espinosa. May plan for IVP to evaluate anatomy Exam Vital signs and Labs for Last 24 Hours: Temp Pulse Resp BP Pulse Ox 97.3 F L 86 16 94/47 L 98 09/12/21 04:00 09/12/21 06:00 09/12/21 06:00 09/12/21 06:00 09/12/21 06:00 Laboratory Results - last 24 hr 09/11/21 09:18: Lactate 0.7 09/11/21 09:30: SARS-CoV-2 (PCR) Not detected, Influenza A Untype (PCR) Not detected, Influenza Type B (PCR) Not detected 09/11/21 14:33: Urine Color Yellow, Urine Appearance Clear, Urine pH 7.0, Ur Specific [place] 1.015, Urine Protein Trace, Urine Glucose (UA) Negative, Urine Ketones 2+, Urine Blood 1+, Urine Nitrate Negative, Urine Bilirubin Negative, Urine Urobilinogen 1.0, Ur Leukocyte Esterase Negative, Urine RBC Occasional, Urine WBC Occasional, Ur Squamous Epith Cells 3-5, Urine Bacteria Trace I & O for Last 24 hours: Intake & Output 09/09/21 09/10/21 09/11/21 09/12/21 11:59 11:59 11:59 11:59 Intake Total 4766 / 4766 Output Total 550 / 550 Balance 4216 / 4216 Weight 87 lb 15.431 oz 99 lb 2 oz - *Routine Abdominal Exam Present: distended Comments: Colostomy viable and edematous without much output.
--- NOTE | 2021-09-12 06:34 | XR_ITS ---
FINAL REPORT CLINICAL HISTORY: COLON MASS S/P RESECTION FINDINGS: IVP HISTORY: . Recent colon resection with possible ureteral injury. PROCEDURE: The patient was injected with IV contrast. Overhead films were obtained. FINDINGS: . Pulmonary title investigator film demonstrates extensive postoperative changes of the lower abdomen. Bowel contents limit the study. Postinjection films demonstrate prompt nephrograms bilaterally. The kidneys are normal in size and contour. There is no hydronephrosis. The imaged portions of the ureters are normal. The urinary bladder is unremarkable. No obvious extravasation of contrast was demonstrated during the exam. IMPRESSION: Noobvious extravasation of contrast. Films reviewed , interpreted and dictated by Dr. Brumfield. Transcribed by Jhon Velazquez PA-C. Reviewed, Interpreted and Dictated by Rodrick Brumfield III, MD Transcribed by DELIO Flores Authenticated and [facility]
[2021-09-12 07:07] LABS: Basophils % 0.1 % (0.1-2.0); Eosinophils % 0.1 % (0.1-12.0); Hematocrit 26.1 % (37.0-47.0); Hemoglobin 8.5 g/dL (12.2-16.2); Lymphocytes # 1.5 K/mm3 (0.7-4.5); Lymphocytes % 7.2 % (10-50); Mean Corpuscular HGB Conc 32.8 g/dL (31.8-35.4); Mean Corpuscular Hemoglobin 30.7 pg (27.0-31.2); Mean Corpuscular Volume 93.8 fl (81-99); Mean Platelet Volume 7.2 fl (7.4-10.4); Monocytes # 1.3 K/mm3 (0.1-1.0); Monocytes % 6.1 % (1.7-9.3); Neutrophils # 18.2 K/mm3 (1.8-7.8); Neutrophils % 86.4 % (37.0-80.0); Platelet Count 369 K/mm3 (142-424); Red Blood Count 2.78 M/mm3 (4.20-5.40); Red Cell Distribution Width 13.3 % (11.5-17.5)
--- NOTE | 2021-09-12 07:14 | HMH.PHAVTE ---
[facility] Pharmacy VTE Monitoring - Patient Demographics Admission date: 09/11/21 Report Date: 09/12/21 Time: 07:14 Allergies/Adverse Reactions: Patient Allergies aspirin Allergy (Intermediate, Verified 09/11/21 21:45) I-ITCHING Penicillins Allergy (Unknown, Verified 09/11/21 21:45) Height: 1.55 m Weight: 44.962 kg Patient Problems: Current Active Problems Colitis (Acute) Bowel obstruction (Acute) Abscess of sigmoid colon (Acute) - VTE Risk Labs: VTE Related Lab Results Hgb 12.9 g/dL (12.2-16.2) 09/11/21 04:30 Hct 37.6 % (37.0-47.0) 09/11/21 04:30 Plt Count 458 K/mm3 (142-424) H 09/11/21 04:30 BUN 9 mg/dl (7-17) 09/11/21 04:30 Creatinine 0.50 mg/dl (0.52-1.04) L 09/11/21 04:30 Estimated Creat Clear 76 mL/min (50-200) 09/11/21 04:30 VTE Score: 4 VTE Risk Level: Low Risk - Prophylaxis VTE Prophylaxis Ordered?: Yes Types of VTE Prophylaxis: IPCS Thigh High Location of Applied Device: Bilateral Lower Extremeties
[2021-09-12 07:15] LABS: Anion Gap 5.9 mEq/L (5-15); Blood Urea Nitrogen 8 mg/dl (7-17); Calcium 7.9 mg/dl (8.4-10.2); Carbon Dioxide 27 mmol/L (22.0-30.0); Chloride 108 mmol/L (98-107); Creatinine Clearance Estimated 86 mL/min (50-200); Estimated Glomerular Filt Rate 126 ml/min (>60); GFR (African American) 153 ML/MIN (>60); Glucose 116 mg/dl (74-100); Potassium 3.9 mmoL/L (3.5-5.1); Sodium 137 mmol/L (136-145)
[2021-09-12 07:28] LABS: MANUAL DIFFERENTIAL MANUAL DIFFERENTIAL (MANUAL DIFF)
--- NOTE | 2021-09-12 07:38 | HMH.PHAINT ---
MEDICATION RECONCILIATION COMPLETED ON PATIENT USING EXTERNAL FILL HISTORY FROM PHARMACY AND [facility] REPORT. -MATTHEW SANTIAGOD
[2021-09-12 08:17] LABS: Anisocytosis 1+; Burr Cells 1+; Hypochromasia 1+; Lymphocytes % 5 % (10-50); Monocytes % 4 % (2-9); Neutrophils % 91 % (42-76); Total Cells Counted 100
[2021-09-12 08:18] LABS: Platelet Estimate Normal
--- NOTE | 2021-09-12 08:21 | HMH.HP ---
*Admission Date: 09/11/21 *Chief complaint: Nausea, Abdominal pain *History of present illness: 61-year-old female patient presents to the [facility] emergency department via private vehicle for reports of right flank pain and pressure. She also reports constipation for 7 days, was seen by PCP and prescribed stool softeners but she reports not picking them up. She also reports abdomen is larger than usual with some lower abdominal pain. She denies vomiting. 09/11/2021 abdominal/pelvic CT: IMPRESSION: Marked wall thickening of the sigmoid colon and rectum with adjacent inflammatory changes. Findings may represent inflammatory bowel the disease or severe colitis, neoplasm is not excluded but felt less likely. This causes colon obstruction. Fluid in the right lateral sigmoid wall is most worrisome for abscess. Pelvic free fluid, likely reactive. Cholelithiasis. Reviewed, Interpreted and Dictated by Rodrick Brumfield [facility] General surgery performed a sigmoid resection and creation of end colostomy for complete bowel obstruction likely secondary to severe diverticular stricture with inflammation and adhesions to surrounding structures 61-year-old female patient sitting up in bed resting quietly she is still a little lethargic. She reports she does have some abdominal pain but it is minimal at present. Abdominal incision with dressing clean/dry/intact. Left-sided stoma pink with collection container intact with very little drainage. [facility] History I have reviewed the patient's past medical history: Yes Medical History: Reports:: Valvular Heart Disease Denies:: Cancer, Diabetes Mellitus Type 1, Diabetes Mellitus Type 2, Internal Pacemaker, MRSA, Seizures *Have you ever received a pneumonia vaccine?: Yes *Have you received a flu vaccine this season?: Yes Other Medical History: Reports: Arthritis. Denies: Blood Transfusion Reaction Anesthesia experience/problems:: None Laterality Cases: Bilateral: Tonsillectomy Other Surgeries: Yes: Colonoscopy, . No: Pacemaker Amputation: No Fractures: Yes - *Social History Smoking Status: Current every day smoker Tobacco Type: cigarettes # Packs/Day (cigarettes): 1 Alcohol Intake: current Alcohol Intake Frequency:: holidays/special occasions only Substance Use Type: denies use *Occupational Status:: employed Housing: house Household Members: other *Travel in the last 8 weeks: None Family Hx:: Unable to obtain Review of Systems - Review of Systems Review of systems:: pertinent systems reviewed and negative unless documented below - Constitutional Reports fatigue, Denies headache(s) - Eyes Denies blurry vision, Denies double vision - ENT Denies dizziness, Denies difficulty swallowing, Denies hearing loss - *Cardiovascular Denies chest pain, Denies chest pain with activity - *Respiratory Denies chest congestion, Denies shortness of breath - *Gastrointestinal Reports abdominal pain, Reports change in bowel habits, Reports constipation - *Musculoskeletal Denies joint pain, Denies back pain - Integumentary/Breasts Denies change in skin color, Denies new lesions - *Neurologic Denies abnormal speech, Denies confusion, Denies seizure-like activity - Psychiatric Denies lack of enjoyment, Denies confusion - Endocrine Denies cold intolerance, Denies excessive sweating - Hematologic/Lymphatic Denies easy bleeding, Denies enlarged lymph nodes - Allergic/Immunologic Denies lip swelling, Denies tongue swelling Meds Home Medications Medication Instructions Recorded Confirmed Type Cholecalciferol (Vitamin D3) 1,000 unit PO DAILY 04/02/20 09/12/21 History [Vitamin D3 1,000 Unit Cap] Ergocalciferol (Vitamin D2) 1,250 mcg PO WEEKLY 04/02/20 09/12/21 History [Vitamin D2] Multivit-Min/Folic Acid/Vit K1 1 each PO DAILY 04/02/20 09/12/21 History [Multi For Her 50 Plus Softgel] Diclofenac Sodium [Diclofenac 75mg 75 mg PO BID 09/11/21 09/11/21 Histor
--- NOTE | 2021-09-12 10:53 | PC.NURSE ---
[address] Mayes to see if pt still required Stepdown monitoring. OK per MD to transfer out of stepdown.
--- NOTE | 2021-09-12 11:30 | PC.NURSE ---
[address] Perales face to face about call from lab regarding dramatic change in place. WBC 9.0 to 21.0 H/H 12.9/37.6 to 8.5/26.1 no new orders at this time.
--- NOTE | 2021-09-12 15:06 | PC.NURSE ---
pt has rested well this shift, nad noted. lung sounds are clear, bowel sounds are hypo active. pt has ostomy to the left of her midline incision, minimal shadowing noted to midline dressing. stoma noted to be beefy red incolor. minimal liquid output. minimal gas output. pt has required 2 doses of pain meds this shift thus far.
--- NOTE | 2021-09-12 15:12 | PC.NURSE ---
ROUNDED ON PATIENT. SHE IS SITTING UP IN BED. STATING SHE WAS HAPPY TO BE WARMER THAN EARLIER. DID COMPLAIN OF SOME PAIN. NO QUESTIONS OR CONCERNS NOTED.
--- NOTE | 2021-09-12 17:23 | PC.NURSE ---
trash taken out of patients room
[2021-09-13] VITALS (9 sets, daily range): BP systolic 100–135; BP diastolic 53–64; PULSE 75–96; RESP 14–23; TEMP 36.6–37; O2SAT 90–99; BMI 21.3
--- NOTE | 2021-09-13 04:36 | PC.NURSE ---
pt rested some throughout shift, pt emv 15, moves all extremities, PERRLA at 2mm, pt still in pain requiring prn pain medications every few hours with 9-10/10 pain reports, pt's HR NSR-low sinus tach this shift, oxygen saturations in mid 90's on room air, normotensive, no fever but pt did wake up hot once asking rn to remove blankets, pt not having much out of colostomy at this time even gas, have not burped bag this shift and still relatively flat, ADRIAN only put out 25mL sanguineous output this shift, walker catheter in place with adequate UOP
--- NOTE | 2021-09-13 07:23 | P.PN_ITS ---
Subjective Narrative: Patient complains of minor headache and some abdominal soreness. Otherwise no issues. Labs pending. Progress Note: A&P (1) Abscess of sigmoid colon Status: Acute (2) Bowel obstruction Status: Acute (3) Colitis Status: Acute (4) Abdominal pain Status: Acute Assessment and Plan for All Diagnoses:: Follow labs. Continue antibiotics. May need potential transfusion. DC Espinosa. Exam Vital signs and Labs for Last 24 Hours: Temp Pulse Resp BP Pulse Ox 98.0 F 91 H 16 117/61 97 09/13/21 04:00 09/13/21 04:00 09/13/21 04:00 09/13/21 04:00 09/13/21 04:00 Laboratory Results - last 24 hr 09/12/21 06:30: WBC 21.0 H* D, RBC 2.78 L D, Hgb 8.5 L, Hct 26.1 L, MCV 93.8, MCH 30.7, MCHC 32.8, RDW 13.3, Plt Count 369, MPV 7.2 L, Neut % (Auto) 86.4 H, Lymph % (Auto) 7.2 L, [place] % (Auto) 6.1, Eos % (Auto) 0.1, Baso % (Auto) 0.1, Neut # (Auto) 18.2 H, Lymph # (Auto) 1.5, [place] # (Auto) 1.3 H, Eos # (Auto) 0.0, Baso # (Auto) 0.0, Total Counted 100, Neutrophils % (Manual) 91 H, Lymphocytes % (Manual) 5 L, Monocytes % (Manual) 4, Platelet Estimate Normal, Hypochromasia 1+, Anisocytosis 1+, [place] Cells 1+ 09/12/21 06:30: Sodium 137, Potassium 3.9 D, Chloride 108 H, Carbon Dioxide 27, Anion Gap 5.9, BUN 8, Creatinine 0.50 L, Estimated Creat Clear 86, Estimated GFR 126, Est GFR ( Amer) 153, Glucose 116 H, Calcium 7.9 L I & O for Last 24 hours: Intake & Output 09/10/21 09/11/21 09/12/21 09/13/21 11:59 11:59 11:59 11:59 Intake Total 4766 / 4766 1975 Output Total 550 / 550 670 / 670 Balance 4216 / 4216 1306 / 1306 Weight 87 lb 15.431 oz 99 lb 2 oz 113 lb - *Routine Abdominal Exam Present: soft Comments: Mild incisional tenderness. Colostomy looks good and viable with some output.
[2021-09-13 07:35] LABS: Basophils % 0.3 % (0.1-2.0); Eosinophils # 0.2 K/mm3 (0.0-0.4); Eosinophils % 1.3 % (0.1-12.0); Lymphocytes # 1.9 K/mm3 (0.7-4.5); Lymphocytes % 15.5 % (10-50); Mean Corpuscular HGB Conc 30.6 g/dL (31.8-35.4); Mean Corpuscular Hemoglobin 30.8 pg (27.0-31.2); Mean Corpuscular Volume 100.5 fl (81-99); Mean Platelet Volume 7.5 fl (7.4-10.4); Monocytes # 0.6 K/mm3 (0.1-1.0); Monocytes % 5.1 % (1.7-9.3); Neutrophils # 9.7 K/mm3 (1.8-7.8); Neutrophils % 77.8 % (37.0-80.0); Platelet Count 371 K/mm3 (142-424); Red Blood Count 2.59 M/mm3 (4.20-5.40); White Blood Count 12.5 K/mm3 (4.8-10.8)
[2021-09-13 07:44] LABS: Anion Gap 4.3 mEq/L (5-15); Blood Urea Nitrogen 5 mg/dl (7-17); Calcium 7.4 mg/dl (8.4-10.2); Carbon Dioxide 33 mmol/L (22.0-30.0); Chloride 100 mmol/L (98-107); Creatinine Clearance Estimated 123 mL/min (50-200); Estimated Glomerular Filt Rate 163 ml/min (>60); GFR (African American) 198 ML/MIN (>60); Glucose 85 mg/dl (74-100); Potassium 3.3 mmoL/L (3.5-5.1); Sodium 134 mmol/L (136-145)
--- NOTE | 2021-09-13 09:51 | HMH.ACPN2 ---
Internal Medicine - PN: Subj *Date: 09/14/21 *Time: 05:01 Interval history: doing ok at this time - no specific c/o Exam Vital signs and Labs for Last 24 Hours: Temp Pulse Resp BP Pulse Ox 98 F 94 H 17 128/63 93 L 09/13/21 08:00 09/13/21 08:00 09/13/21 08:00 09/13/21 08:00 09/13/21 08:00 Laboratory Results - last 24 hr 09/13/21 07:09: WBC 12.5 H D, RBC 2.59 L, Hgb 8.0 L, Hct 26.0 L, MCV 100.5 H, MCH 30.8, MCHC 30.6 L, RDW 14.0, Plt Count 371, MPV 7.5, Neut % (Auto) 77.8, Lymph % (Auto) 15.5, [place] % (Auto) 5.1, Eos % (Auto) 1.3, Baso % (Auto) 0.3, Neut # (Auto) 9.7 H, Lymph # (Auto) 1.9, [place] # (Auto) 0.6, Eos # (Auto) 0.2, Baso # (Auto) 0.0 09/13/21 07:09: Sodium 134 L, Potassium 3.3 L, Chloride 100, Carbon Dioxide 33 H, Anion Gap 4.3 L, BUN 5 L D, Creatinine 0.40 L, Estimated Creat Clear 123, Estimated GFR 163, Est GFR ( Amer) 198 D, Glucose 85, Calcium 7.4 L I & O for Last 24 hours: Intake & Output 09/10/21 09/11/21 09/12/21 09/13/21 11:59 11:59 11:59 11:59 Intake Total 4766 / 4766 1975 Output Total 550 / 550 670 / 670 Balance 4216 / 4216 1306 / 1306 Weight 87 lb 15.431 oz 99 lb 2 oz 113 lb Microbiology Reports for the Last 24 Hours: Microbiology 09/11/21 09:18 Blood Blood Culture - Preliminary NO GROWTH AFTER 48 HOURS 09/11/21 09:18 Blood Blood Culture - Preliminary NO GROWTH AFTER 48 HOURS - Constitutional no acute distress - *Routine HEENT Exam Head: Present: normocephalic Eye: Present: EOMI, PERRL ENT: Present: mucous membranes dry - *Routine Neck Exam Absent: JVD - *Routine Respiratory Exam Present: decreased breath sounds - *Routine Cardiovascular Exam Present: RRR - *Routine Abdominal Exam Present: soft, ostomy - *Routine Extremities Exam Absent: edema, calf tenderness - *Routine Skin Exam Present: intact - *Routine Neurological Exam Present: alert, oriented X3, CN II-XII intact - Routine Psychiatric Exam Present: cooperative Assessment and Plan (1) Abscess of sigmoid colon Status: Acute Category: Medical Code(s): K63.0 - Abscess of intestine (2) Bowel obstruction Status: Acute Qualifiers: Intestinal obstruction type: unspecified Intestinal obstruction extent: unspecified extent Qualified Code(s): K56.609 - Unspecified intestinal obstruction, unspecified as to partial versus complete obstruction Category: Medical Code(s): K56.609 - Unspecified intestinal obstruction, unspecified as to partial versus complete obstruction (3) Colitis Status: Acute Category: Medical Code(s): K52.9 - Noninfective gastroenteritis and colitis, unspecified (4) Abdominal pain Status: Acute Qualifiers: Abdominal location: unspecified location Qualified Code(s): R10.9 - Unspecified abdominal pain Category: Medical Code(s): R10.9 - Unspecified abdominal pain (5) Anemia Status: Acute Qualifiers: Anemia type: unspecified type Qualified Code(s): D64.9 - Anemia, unspecified Category: Medical Code(s): D64.9 - Anemia, unspecified
--- NOTE | 2021-09-13 19:45 | PC.NURSE ---
No acute changes this shift. VSS. Espinosa removed this shift and pt has voided since removal with good u/o. CB in reach.
[2021-09-14] VITALS (9 sets, daily range): BP systolic 103–128; BP diastolic 45–83; PULSE 79–96; RESP 16–20; TEMP 36.3–37.1; O2SAT 90–97; BMI 21.3
--- NOTE | 2021-09-14 06:44 | PC.NURSE ---
pt rested well this shift, pt had some pain relieved by prn medication but less than previous shift, pt getting up to bathroom with stand by assist and more than adequate UOP, VSS, had to place pt on 2LNC once this shift but pt back on room air sats in low 90's, emv 15, perrla at 2mm, moves all extremities, colostomy putting out liquid brown stool, azar draining small amount of serosanguineous fluid,
--- NOTE | 2021-09-14 09:20 | PC.NURSE ---
Dr. Mayes @ rounding. Midline abd incision cleaned and dressing changed. Rina intact. Colostomy appliance changed. RLQ ADRIAN drain stripped and dressing changed. No s/s of infection noted.
--- NOTE | 2021-09-14 09:23 | HMH.GSPN ---
Subjective Patient reports: no new complaints Progress Note: A&P (1) Abscess of sigmoid colon Status: Acute (2) Bowel obstruction Status: Acute (3) Colitis Status: Acute (4) Abdominal pain Status: Acute (5) Anemia Status: Acute Assessment and Plan for All Diagnoses:: Advance diet. Exam Vital signs and Labs for Last 24 Hours: Temp Pulse Resp BP Pulse Ox 98.0 F 91 H 18 103/53 L 92 L 09/14/21 08:00 09/14/21 08:00 09/14/21 08:00 09/14/21 08:00 09/14/21 08:00 I & O for Last 24 hours: Intake & Output 09/11/21 09/12/21 09/13/21 09/14/21 11:59 11:59 11:59 11:59 Intake Total 4766 / 4766 4803 / 4803 1078 / 1078 Output Total 550 / 550 670 / 670 3725 / 3725 Balance 4216 / 4216 4133 / 4133 -2647 / -2647 Weight 87 lb 15.431 oz 99 lb 2 oz 113 lb 112 lb 15.79 oz Microbiology Reports for the Last 24 Hours: Microbiology 09/11/21 09:18 Blood Blood Culture - Preliminary NO GROWTH AFTER 48 HOURS 09/11/21 09:18 Blood Blood Culture - Preliminary NO GROWTH AFTER 48 HOURS - *Routine Abdominal Exam Present: soft Comments: Colostomy. Good output. Some leakage into incision.
--- NOTE | 2021-09-14 09:51 | PC.NURSE ---
O2 sat 96 on RA. Will keep O2 off at this time
[2021-09-14 09:57] LABS: Basophils # 0.1 K/mm3 (0-0.2); Basophils % 0.6 % (0.1-2.0); Eosinophils # 0.2 K/mm3 (0.0-0.4); Eosinophils % 1.8 % (0.1-12.0); Hematocrit 31.1 % (37.0-47.0); Hemoglobin 9.3 g/dL (12.2-16.2); Lymphocytes # 1.6 K/mm3 (0.7-4.5); Lymphocytes % 13.8 % (10-50); Mean Platelet Volume 7.7 fl (7.4-10.4); Monocytes # 0.5 K/mm3 (0.1-1.0); Monocytes % 4.3 % (1.7-9.3); Neutrophils # 8.9 K/mm3 (1.8-7.8); Neutrophils % 79.6 % (37.0-80.0); Platelet Count 475 K/mm3 (142-424); Red Blood Count 3.11 M/mm3 (4.20-5.40); White Blood Count 11.2 K/mm3 (4.8-10.8)
[2021-09-14 10:07] LABS: Chloride 98 mmol/L (98-107); Sodium 135 mmol/L (136-145)
[2021-09-14 10:10] LABS: Blood Urea Nitrogen 2 mg/dl (7-17); Calcium 7.9 mg/dl (8.4-10.2); Carbon Dioxide 31 mmol/L (22.0-30.0); Creatinine Clearance Estimated 123 mL/min (50-200); Estimated Glomerular Filt Rate 163 ml/min (>60); GFR (African American) 198 ML/MIN (>60); Glucose 86 mg/dl (74-100)
--- NOTE | 2021-09-14 10:14 | PC.NURSE ---
received call from lab reporting K 3.0. Name and verified. Dr. Perales notified.
--- NOTE | 2021-09-14 10:43 | HMH.ACPN ---
Internal Medicine - PN: Subj *Date: 09/14/21 *Time: 10:43 Exam Vital signs and Labs for Last 24 Hours: Temp Pulse Resp BP Pulse Ox 98.0 F 91 H 18 103/53 L 92 L 09/14/21 08:00 09/14/21 08:00 09/14/21 08:00 09/14/21 08:00 09/14/21 08:00 Laboratory Results - last 24 hr 09/14/21 08:22: WBC 11.2 H, RBC 3.11 L, Hgb 9.3 L, Hct 31.1 L, MCV 100.0 H, MCH 30.0, MCHC 30.0 L, RDW 14.0, Plt Count 475 H D, MPV 7.7, Neut % (Auto) 79.6, Lymph % (Auto) 13.8, [place] % (Auto) 4.3, Eos % (Auto) 1.8, Baso % (Auto) 0.6, Neut # (Auto) 8.9 H, Lymph # (Auto) 1.6, [place] # (Auto) 0.5, Eos # (Auto) 0.2, Baso # (Auto) 0.1 09/14/21 08:22: Sodium 135 L, Potassium 3.0 L, Chloride 98, Carbon Dioxide 31 H, Anion Gap 9.0, BUN 2 L D, Creatinine 0.40 L, Estimated Creat Clear 123, Estimated GFR 163, Est GFR ( Amer) 198, Glucose 86, Calcium 7.9 L I & O for Last 24 hours: Intake & Output 09/11/21 09/12/21 09/13/21 09/14/21 23:59 23:59 23:59 23:59 Intake Total 3500 / 3500 3242 / 3242 2827 / 2827 1733 / 1733 Output Total 250 / 370 970 / 970 2545 / 2545 1240 / 1240 Balance 3250 / 3130 2272 / 2272 282 / 282 493 / 493 Weight 44.707 kg 44.962 kg 51.256 kg 51.25 kg Microbiology Reports for the Last 24 Hours: Microbiology 09/11/21 09:18 Blood Blood Culture - Preliminary NO GROWTH AFTER 48 HOURS 09/11/21 09:18 Blood Blood Culture - Preliminary NO GROWTH AFTER 48 HOURS Assessment and Plan (1) Abscess of sigmoid colon Status: Acute Category: Medical Code(s): K63.0 - Abscess of intestine (2) Bowel obstruction Status: Acute Qualifiers: Intestinal obstruction type: unspecified Intestinal obstruction extent: unspecified extent Qualified Code(s): K56.609 - Unspecified intestinal obstruction, unspecified as to partial versus complete obstruction Category: Medical Code(s): K56.609 - Unspecified intestinal obstruction, unspecified as to partial versus complete obstruction (3) Colitis Status: Acute Category: Medical Code(s): K52.9 - Noninfective gastroenteritis and colitis, unspecified (4) Abdominal pain Status: Acute Qualifiers: Abdominal location: unspecified location Qualified Code(s): R10.9 - Unspecified abdominal pain Category: Medical Code(s): R10.9 - Unspecified abdominal pain (5) Anemia Status: Acute Qualifiers: Anemia type: unspecified type Qualified Code(s): D64.9 - Anemia, unspecified Category: Medical Code(s): D64.9 - Anemia, unspecified The patient's infection will respond to the chosen ABx?: Yes Is the patient receiving the right drug, dose, and route?: Yes Could a more targeted ABx be ordered?: No
--- NOTE | 2021-09-14 11:04 | HMH.ACPN2 ---
Internal Medicine - PN: Subj *Date: 09/15/21 *Time: 08:07 Interval history: doing better - more alert Exam Vital signs and Labs for Last 24 Hours: Temp Pulse Resp BP Pulse Ox 98.0 F 91 H 18 103/53 L 92 L 09/14/21 08:00 09/14/21 08:00 09/14/21 08:00 09/14/21 08:00 09/14/21 08:00 Laboratory Results - last 24 hr 09/14/21 08:22: WBC 11.2 H, RBC 3.11 L, Hgb 9.3 L, Hct 31.1 L, MCV 100.0 H, MCH 30.0, MCHC 30.0 L, RDW 14.0, Plt Count 475 H D, MPV 7.7, Neut % (Auto) 79.6, Lymph % (Auto) 13.8, [place] % (Auto) 4.3, Eos % (Auto) 1.8, Baso % (Auto) 0.6, Neut # (Auto) 8.9 H, Lymph # (Auto) 1.6, [place] # (Auto) 0.5, Eos # (Auto) 0.2, Baso # (Auto) 0.1 09/14/21 08:22: Sodium 135 L, Potassium 3.0 L, Chloride 98, Carbon Dioxide 31 H, Anion Gap 9.0, BUN 2 L D, Creatinine 0.40 L, Estimated Creat Clear 123, Estimated GFR 163, Est GFR ( Amer) 198, Glucose 86, Calcium 7.9 L I & O for Last 24 hours: Intake & Output 09/11/21 09/12/21 09/13/21 09/14/21 11:59 11:59 11:59 11:59 Intake Total 4766 / 4766 4803 / 4803 1733 / 1733 Output Total 550 / 550 670 / 670 3785 / 3785 Balance 4216 / 4216 4133 / 4133 -2051 / Weight 87 lb 15.431 oz 99 lb 2 oz 113 lb 112 lb 15.79 oz Microbiology Reports for the Last 24 Hours: Microbiology 09/11/21 09:18 Blood Blood Culture - Preliminary NO GROWTH AFTER 48 HOURS 09/11/21 09:18 Blood Blood Culture - Preliminary NO GROWTH AFTER 48 HOURS - Constitutional no acute distress - *Routine HEENT Exam Head: Present: normocephalic Eye: Present: EOMI, PERRL ENT: Present: mucous membranes dry - *Routine Neck Exam Absent: JVD - *Routine Respiratory Exam Present: decreased breath sounds - *Routine Cardiovascular Exam Present: RRR - *Routine Abdominal Exam Present: soft, ostomy - *Routine Extremities Exam Absent: calf tenderness - *Routine Skin Exam Present: intact - *Routine Neurological Exam Present: alert, CN II-XII intact - Routine Psychiatric Exam Present: cooperative Assessment and Plan (1) Abscess of sigmoid colon Status: Acute Category: Medical Code(s): K63.0 - Abscess of intestine (2) Bowel obstruction Status: Acute Qualifiers: Intestinal obstruction type: unspecified Intestinal obstruction extent: unspecified extent Qualified Code(s): K56.609 - Unspecified intestinal obstruction, unspecified as to partial versus complete obstruction Category: Medical Code(s): K56.609 - Unspecified intestinal obstruction, unspecified as to partial versus complete obstruction (3) Colitis Status: Acute Category: Medical Code(s): K52.9 - Noninfective gastroenteritis and colitis, unspecified (4) Abdominal pain Status: Acute Qualifiers: Abdominal location: unspecified location Qualified Code(s): R10.9 - Unspecified abdominal pain Category: Medical Code(s): R10.9 - Unspecified abdominal pain (5) Anemia Status: Acute Qualifiers: Anemia type: unspecified type Qualified Code(s): D64.9 - Anemia, unspecified Category: Medical Code(s): D64.9 - Anemia, unspecified
--- NOTE | 2021-09-14 17:54 | PC.NURSE ---
shift summary: Pt has done well this shift. Is A&O. Gets OOB to BSC with standby assist. Dilaudid 0.5mg IV give once for abd pain. Midline abd incision noted with remigio. Dressing CDI. Colostomy appliance changed and bag emptied. ADRIAN drain present. No s/s of infection noted. Has been afebrile. NSR on tele, bigeminy noted at times. Normotensive. O2 sat high 90s on RA. Tolerates a full liquid diet. No n/v.
[2021-09-15] VITALS: PULSE 87
--- NOTE | 2021-09-15 02:15 | PC.NURSE ---
pt's midline dressing soiled with stool under the dressing, took down old dressing, cleaned incision, stoma, abdomen, and around azar drain; re-dressed incision and AZAR drain, applied new colostomy appliance (2 piece)
[2021-09-15 04:00] VITALS: BP 107/61; PULSE 80; PULSE 82; RESP 18; TEMP 36.7; O2SAT 94
[2021-09-15 05:00] VITALS: BMI 21.4
--- NOTE | 2021-09-15 06:19 | PC.NURSE ---
pt in more pain this shift vs last shift relieved with prn pain medication, pt's vss, had to place pt on 2LNC intermittently this shift, pt getting up to bsc frequently, pt having liquid stool from stoma, ADRIAN with scant pink tinged fluid, had to replace dressing and appliance once this shift due to leakage under midline dressing, pt having intermittent pvc's and at times bigeminy,
[2021-09-15 08:00] VITALS: BP 126/72; PULSE 73; PULSE 88; RESP 16; TEMP 36.4; O2SAT 94; O2SAT 97
--- NOTE | 2021-09-15 09:28 | HMH.GSPN ---
Subjective Patient reports: no new complaints Narrative: Tolerating full liquid diet with good colostomy output. Voiding without difficulty. Progress Note: A&P (1) Abscess of sigmoid colon Status: Acute (2) Bowel obstruction Status: Acute (3) Colitis Status: Acute (4) Abdominal pain Status: Acute (5) Anemia Status: Acute Assessment and Plan for All Diagnoses:: Check creatinine on ADRIAN drain. Possible remove ADRIAN drain. Advance diet. Discharge planning Exam Vital signs and Labs for Last 24 Hours: Temp Pulse Resp BP Pulse Ox 97.6 F 73 16 126/72 97 09/15/21 08:00 09/15/21 08:00 09/15/21 08:00 09/15/21 08:00 09/15/21 08:00 Laboratory Results - last 24 hr 09/14/21 08:22: WBC 11.2 H, RBC 3.11 L, Hgb 9.3 L, Hct 31.1 L, MCV 100.0 H, MCH 30.0, MCHC 30.0 L, RDW 14.0, Plt Count 475 H D, MPV 7.7, Neut % (Auto) 79.6, Lymph % (Auto) 13.8, [place] % (Auto) 4.3, Eos % (Auto) 1.8, Baso % (Auto) 0.6, Neut # (Auto) 8.9 H, Lymph # (Auto) 1.6, [place] # (Auto) 0.5, Eos # (Auto) 0.2, Baso # (Auto) 0.1 09/14/21 08:22: Sodium 135 L, Potassium 3.0 L, Chloride 98, Carbon Dioxide 31 H, Anion Gap 9.0, BUN 2 L D, Creatinine 0.40 L, Estimated Creat Clear 123, Estimated GFR 163, Est GFR ( Amer) 198, Glucose 86, Calcium 7.9 L I & O for Last 24 hours: Intake & Output 09/12/21 09/13/21 09/14/21 09/15/21 11:59 11:59 11:59 11:59 Intake Total 4766 / 4766 4803 / 4803 1733 / 1733 2600 / 2600 Output Total 550 / 550 670 / 670 4285 / 4285 4535 / 4535 Balance 4216 / 4216 4133 / 4133 -2552 / -2552 -1935 / -1935 Weight 99 lb 2 oz 113 lb 112 lb 15.79 oz 113 lb 8.609 oz - *Routine Abdominal Exam Present: soft, ostomy Comments: Colostomy viable and functioning. ADRIAN drain with serous drainage
--- NOTE | 2021-09-15 09:30 | P.PN_ITS ---
Internal Medicine - PN: Subj *Date: 09/16/21 *Time: 06:50 Interval history: doing ok - alert - labs pending Exam Vital signs and Labs for Last 24 Hours: Temp Pulse Resp BP Pulse Ox 97.6 F 73 16 126/72 97 09/15/21 08:00 09/15/21 08:00 09/15/21 08:00 09/15/21 08:00 09/15/21 08:00 Laboratory Results - last 24 hr 09/14/21 08:22: WBC 11.2 H, RBC 3.11 L, Hgb 9.3 L, Hct 31.1 L, MCV 100.0 H, MCH 30.0, MCHC 30.0 L, RDW 14.0, Plt Count 475 H D, MPV 7.7, Neut % (Auto) 79.6, Lymph % (Auto) 13.8, [place] % (Auto) 4.3, Eos % (Auto) 1.8, Baso % (Auto) 0.6, Neut # (Auto) 8.9 H, Lymph # (Auto) 1.6, [place] # (Auto) 0.5, Eos # (Auto) 0.2, [place] # (Auto) 0.1 09/14/21 08:22: Sodium 135 L, Potassium 3.0 L, Chloride 98, Carbon Dioxide 31 H, Anion Gap 9.0, BUN 2 L D, Creatinine 0.40 L, Estimated Creat Clear 123, Estimated GFR 163, Est GFR ( Amer) 198, Glucose 86, Calcium 7.9 L I & O for Last 24 hours: Intake & Output 09/12/21 09/13/21 09/14/21 09/15/21 11:59 11:59 11:59 11:59 Intake Total 4766 / 4766 4803 / 4803 1733 / 1733 2600 / 2600 Output Total 550 / 550 670 / 670 4285 / 4285 4535 / 4535 Balance 4216 / 4216 4133 / 4133 -2552 / -2552 -193 / -193 Weight 99 lb 2 oz 113 lb 112 lb 15.79 oz 113 lb 8.609 oz - Constitutional no acute distress - *Routine HEENT Exam Head: Present: normocephalic Eye: Present: EOMI, PERRL ENT: Present: mucous membranes dry - *Routine Neck Exam Absent: JVD - *Routine Respiratory Exam Present: CTA bilaterally - *Routine Cardiovascular Exam Present: RRR, murmur - *Routine Abdominal Exam Present: soft, ostomy - *Routine Extremities Exam Absent: calf tenderness - *Routine Skin Exam Present: intact - *Routine Neurological Exam Present: alert, CN II-XII intact - Routine Psychiatric Exam Present: normal affect Assessment and Plan (1) Abscess of sigmoid colon Status: Acute Category: Medical Code(s): K63.0 - Abscess of intestine (2) Bowel obstruction Status: Acute Qualifiers: Intestinal obstruction type: unspecified Intestinal obstruction extent: unspecified extent Qualified Code(s): K56.609 - Unspecified intestinal obstruction, unspecified as to partial versus complete obstruction Category: Medical Code(s): K56.609 - Unspecified intestinal obstruction, un specified as to partial versus complete obstruction (3) Colitis Status: Acute Category: Medical Code(s): K52.9 - Noninfective gastroenteritis and colitis, unspecified (4) Abdominal pain Status: Acute Qualifiers: Abdominal location: unspecified location Qualified Code(s): R10.9 - Unspecified abdominal pain Category: Medical Code(s): R10.9 - Unspecified abdominal pain (5) Anemia Status: Acute Qualifiers: Anemia type: unspecified type Qualified Code(s): D64.9 - Anemia, unspecified Category: Medical Code(s): D64.9 - Anemia, unspecified (6) Tobacco use Status: Acute Category: Social Hx Code(s): Z72.0 - Tobacco use
[2021-09-15 11:02] LABS: Anion Gap 5.7 mEq/L (5-15); Calcium 7.7 mg/dl (8.4-10.2); Carbon Dioxide 35 mmol/L (22.0-30.0); Chloride 95 mmol/L (98-107); Creatinine Clearance Estimated 164 mL/min (50-200); Estimated Glomerular Filt Rate 228 ml/min (>60); GFR (African American) 276 ML/MIN (>60); Glucose 157 mg/dl (74-100); Sodium 133 mmol/L (136-145)
[2021-09-15 11:06] LABS: Blood Urea Nitrogen < 2 mg/dl (7-17)
[2021-09-15 11:08] LABS: Potassium 2.7 mmoL/L (3.5-5.1)
--- NOTE | 2021-09-15 11:14 | PC.NURSE ---
Addendum entered by Haydee Gregory RN 09/15/21 11:37: 1124 new orders: Potassium 20 mEq po now then potassium 20 mEq po again in 6 hrs Original Note: [address] Mayes of pt potassium of 2.7 (requested that I notify Dr Perales/Bossman) [address] Keita that pt potassium is 2.7, also that pt IVF were changed from lr to d5 1/2 ns w/ 20 k. no response at this time.
[2021-09-15 11:18] LABS: Basophils % 0.5 % (0.1-2.0); Eosinophils # 0.2 K/mm3 (0.0-0.4); Eosinophils % 1.8 % (0.1-12.0); Hematocrit 28.6 % (37.0-47.0); Hemoglobin 8.8 g/dL (12.2-16.2); Lymphocytes # 1.1 K/mm3 (0.7-4.5); Lymphocytes % 12.8 % (10-50); Mean Corpuscular HGB Conc 30.7 g/dL (31.8-35.4); Mean Corpuscular Hemoglobin 29.6 pg (27.0-31.2); Mean Corpuscular Volume 96.4 fl (81-99); Mean Platelet Volume 8.5 fl (7.4-10.4); Monocytes # 0.5 K/mm3 (0.1-1.0); Monocytes % 5.7 % (1.7-9.3); Neutrophils # 7.1 K/mm3 (1.8-7.8); Neutrophils % 79.2 % (37.0-80.0); Platelet Count 436 K/mm3 (142-424); Red Blood Count 2.96 M/mm3 (4.20-5.40); Red Cell Distribution Width 13.8 % (11.5-17.5); White Blood Count 8.9 K/mm3 (4.8-10.8)
[2021-09-15 16:00] VITALS: BP 108/68; PULSE 87; RESP 16; TEMP 36.6; O2SAT 96
--- NOTE | 2021-09-15 18:28 | PC.NURSE ---
pt has been awake most of the shift. she has been conversant with staff. nad noted, lung sounds are clear, bowel sounds are hypoactive. pt dressing is cdi, no leaking or tracking of stool noted. pt has had to have ADRIAN drain emptied a few times this shift. each time it was noted to be straw colored fluid. Dr Mayes is aware. pt has requested pain meds a few times this time. mainly after eating meals. pt was advised to take it easy on meals and to attempt full liquids again until we can further discuss pain with Dr mayes.
[2021-09-15 20:00] VITALS: BP 107/69; PULSE 89; RESP 18; TEMP 36.4; O2SAT 99
[2021-09-16 04:38] VITALS: BP 111/53; PULSE 83; RESP 18; TEMP 37.3; O2SAT 95
[2021-09-16 05:00] VITALS: BMI 20.4
--- NOTE | 2021-09-16 06:21 | PC.NURSE ---
Addendum entered by Madhuri Dominique RN 09/16/21 06:28: pt on room air throughout shift Original Note: pt rested well this shift, pt's VSS, pt voiding in bsc adequately, azar drain still putting out moderate amount of serous fluid, ostomy is draining but didn't have to empty this shift (small amount liquid brown stool in bag), pt not in as much pain as shift prior, pt still has no appetite and doesn't drink much (IVF going at 75mL/hr), midline incision and ostomy appliance dressings cdi
[2021-09-16 07:28] LABS: Anion Gap 3.2 mEq/L (5-15); Calcium 7.8 mg/dl (8.4-10.2); Carbon Dioxide 35 mmol/L (22.0-30.0); Chloride 102 mmol/L (98-107); Creatinine Clearance Estimated 157 mL/min (50-200); Estimated Glomerular Filt Rate 228 ml/min (>60); GFR (African American) 276 ML/MIN (>60); Glucose 96 mg/dl (74-100); Potassium 3.2 mmoL/L (3.5-5.1); Sodium 137 mmol/L (136-145)
[2021-09-16 07:30] LABS: Blood Urea Nitrogen < 2 mg/dl (7-17)
[2021-09-16 07:37] LABS: Basophils % 0.2 % (0.1-2.0); Eosinophils # 0.4 K/mm3 (0.0-0.4); Eosinophils % 5.5 % (0.1-12.0); Hematocrit 27.1 % (37.0-47.0); Hemoglobin 9.4 g/dL (12.2-16.2); Lymphocytes # 1.6 K/mm3 (0.7-4.5); Lymphocytes % 22.6 % (10-50); Mean Corpuscular HGB Conc 34.5 g/dL (31.8-35.4); Mean Corpuscular Volume 89.9 fl (81-99); Mean Platelet Volume 7.2 fl (7.4-10.4); Monocytes # 0.6 K/mm3 (0.1-1.0); Monocytes % 8.8 % (1.7-9.3); Neutrophils # 4.6 K/mm3 (1.8-7.8); Neutrophils % 62.9 % (37.0-80.0); Platelet Count 441 K/mm3 (142-424); Red Blood Count 3.02 M/mm3 (4.20-5.40); Red Cell Distribution Width 13.4 % (11.5-17.5); White Blood Count 7.3 K/mm3 (4.8-10.8)
[2021-09-16 08:00] VITALS: BP 113/65; PULSE 88; RESP 18; TEMP 36.8; O2SAT 95
--- NOTE | 2021-09-16 08:42 | HMH.GSPN ---
Subjective Narrative: Patient without significant complaints. However, she did have some abdominal pain with food intake (she is on a bland diet). She has been voiding without difficulty. She does have serous drainage of an appreciable amount from her pelvic ADRIAN drain. Progress Note: A&P (1) Abscess of sigmoid colon Status: Acute (2) Bowel obstruction Status: Acute (3) Colitis Status: Acute (4) Abdominal pain Status: Acute (5) Anemia Status: Acute (6) Tobacco use Status: Acute Assessment and Plan for All Diagnoses:: We will see what the status of the fluid from the drain is from lab. Possible drain removal. Discharge planning. Exam Vital signs and Labs for Last 24 Hours: Temp Pulse Resp BP Pulse Ox 99.2 F 83 18 111/53 L 95 09/16/21 04:38 09/16/21 04:38 09/16/21 04:38 09/16/21 04:38 09/16/21 04:38 Laboratory Results - last 24 hr 09/15/21 10:24: WBC 8.9, RBC 2.96 L, Hgb 8.8 L, Hct 28.6 L, MCV 96.4, MCH 29.6, MCHC 30.7 L, RDW 13.8, Plt Count 436 H, MPV 8.5, Neut % (Auto) 79.2, Lymph % (Auto) 12.8, [place] % (Auto) 5.7, Eos % (Auto) 1.8, Baso % (Auto) 0.5, Neut # (Auto) 7.1, Lymph # (Auto) 1.1, [place] # (Auto) 0.5, Eos # (Auto) 0.2, Baso # (Auto) 0.0 09/15/21 10:24: Sodium 133 L, Potassium 2.7 L*, Chloride 95 L, Carbon Dioxide 35 H, Anion Gap 5.7, BUN < 2 L, Creatinine 0.30 L D, Estimated Creat Clear 164, Estimated GFR 228, Est GFR ( Amer) 276 D, Glucose 157 H, Calcium 7.7 L 09/16/21 05:42: WBC 7.3, RBC 3.02 L, Hgb 9.4 L, Hct 27.1 L, MCV 89.9, MCH 31.0, MCHC 34.5, RDW 13.4, Plt Count 441 H, MPV 7.2 L, Neut % (Auto) 62.9, Lymph % (Auto) 22.6, [place] % (Auto) 8.8, Eos % (Auto) 5.5, Baso % (Auto) 0.2, Neut # (Auto) 4.6, Lymph # (Auto) 1.6, [place] # (Auto) 0.6, Eos # (Auto) 0.4, Baso # (Auto) 0.0 09/16/21 05:42: Sodium 137, Potassium 3.2 L, Chloride 102, Carbon Dioxide 35 H, Anion Gap 3.2 L, BUN < 2 L, Creatinine 0.30 L, Estimated Creat Clear 157, Estimated GFR 228, Est GFR ( Amer) 276, Glucose 96 D, Calcium 7.8 L I & O for Last 24 hours: Intake & Output 09/13/21 09/14/21 09/15/21 09/16/21 11:59 11:59 11:59 11:59 Intake Total 4803 / 4803 1733 / 1733 2960 / 2960 1730 / 1730 Output Total 670 / 670 4285 / 4285 4675 / 5375 5060 / 5060 Balance 4133 / 4133 -2552 / -2552 -1715 / -2415 -3330 / -3330 Weight 113 lb 112 lb 15.79 oz 113 lb 8.609 oz 108 lb 4.8 oz - *Routine Abdominal Exam Present: soft, ostomy. Absent: tenderness
--- NOTE | 2021-09-16 09:22 | HMH.ACPN2 ---
Internal Medicine - PN: Subj *Date: 09/16/21 *Time: 11:33 Interval history: 61-year-old female patient sitting up in bed resting quietly with eyes open. She reports pain is at a tolerable level. She did report some abdominal pain yesterday after eating a bland diet she is back to full liquids this morning and tolerating without difficulty. ADRIAN drain with small amount serous drainage Exam Vital signs and Labs for Last 24 Hours: Temp Pulse Resp BP Pulse Ox 98.3 F 88 18 113/65 95 09/16/21 08:00 09/16/21 08:00 09/16/21 08:00 09/16/21 08:00 09/16/21 08:00 Laboratory Results - last 24 hr 09/15/21 10:24: WBC 8.9, RBC 2.96 L, Hgb 8.8 L, Hct 28.6 L, MCV 96.4, MCH 29.6, MCHC 30.7 L, RDW 13.8, Plt Count 436 H, MPV 8.5, Neut % (Auto) 79.2, Lymph % (Auto) 12.8, [place] % (Auto) 5.7, Eos % (Auto) 1.8, Baso % (Auto) 0.5, Neut # (Auto) 7.1, Lymph # (Auto) 1.1, [place] # (Auto) 0.5, Eos # (Auto) 0.2, Baso # (Auto) 0.0 09/15/21 10:24: Sodium 133 L, Potassium 2.7 L*, Chloride 95 L, Carbon Dioxide 35 H, Anion Gap 5.7, BUN < 2 L, Creatinine 0.30 L D, Estimated Creat Clear 164, Estimated GFR 228, Est GFR ( Amer) 276 D, Glucose 157 H, Calcium 7.7 L 09/16/21 05:42: WBC 7.3, RBC 3.02 L, Hgb 9.4 L, Hct 27.1 L, MCV 89.9, MCH 31.0, MCHC 34.5, RDW 13.4, Plt Count 441 H, MPV 7.2 L, Neut % (Auto) 62.9, Lymph % (Auto) 22.6, [place] % (Auto) 8.8, Eos % (Auto) 5.5, Baso % (Auto) 0.2, Neut # (Auto) 4.6, Lymph # (Auto) 1.6, [place] # (Auto) 0.6, Eos # (Auto) 0.4, Baso # (Auto) 0.0 09/16/21 05:42: Sodium 137, Potassium 3.2 L, Chloride 102, Carbon Dioxide 35 H, Anion Gap 3.2 L, BUN < 2 L, Creatinine 0.30 L, Estimated Creat Clear 157, Estimated GFR 228, Est GFR ( Amer) 276, Glucose 96 D, Calcium 7.8 L I & O for Last 24 hours: Intake & Output 09/13/21 09/14/21 09/15/21 09/16/21 23:59 23:59 23:59 23:59 Intake Total 2827 / 2827 2883 / 2883 2290 / 2290 1490 / 1490 Output Total 2545 / 2545 4620 / 4620 4580 / 4580 2275 / 2275 Balance 282 / 282 -1737 / -1737 -2290 / -2290 -785 / -785 Weight 113 lb 112 lb 15.79 oz 113 lb 8.609 oz 108 lb 4.8 oz - Constitutional no acute distress, chronically ill appearing - *Routine HEENT Exam Head: Present: normocephalic Eye: Present: EOMI ENT: Present: mucous membranes moist - *Routine Neck Exam Present: trachea midline. Absent: tracheal deviation - *Routine Respiratory Exam Present: CTA bilaterally. Absent: accessory muscle use - *Routine Cardiovascular Exam Present: RRR - *Routine Abdominal Exam Present: soft, tenderness, ostomy. Absent: normoactive bowel sounds Comments: Generalized abdominal tenderness Colostomy with pink stoma ADRIAN drain with serous drainage - *Routine Extremities Exam Present: full ROM, pulses intact. Absent: cyanosis, clubbing, edema - *Routine Skin Exam Present: dry, wounds. Absent: intact, cyanosis, erythema - *Routine Neurological Exam Present: alert, oriented X3. Absent: altered mental status - Routine Psychiatric Exam Present: normal affect, normal thought process. Absent: auditory hallucinations Assessment and Plan (1) Abscess of sigmoid colon Status: Acute Category: Medical Code(s): K63.0 - Abscess of intestine (2) Bowel obstruction Status: Acute Qualifiers: Intestinal obstruction type: unspecified Intestinal obstruction extent: unspecified extent Qualified Code(s): K56.609 - Unspecified intestinal obstruction, unspecified as to partial versus complete obstruction Category: Medical Code(s): K56.609 - Unspecified intestinal obstruction, unspecified as to partial versus complete obstruction (3) Colitis Status: Acute Category: Medical Code(s): K52.9 - Noninfective gastroenteritis and colitis, unspecified (4) Abdominal pain Status: Acute Qualifiers: Abdominal location: unspecified location Qualified Code(s): R10.9 - Unspecified abdominal pain Category: Medical Code(s): R10.9 - Unspecified abdominal pain
--- NOTE | 2021-09-16 10:21 | HMH.OTEV ---
OT Inpatient Evaluation Rehab OT IP Evaluation Start: 09/16/21 09:23 Freq: ONCE Status: Complete Protocol: Document 09/16/21 10:08 [facility] (Rec: 09/16/21 10:[address] [facility] [id number]) Rehab OT IP Assessment Subjective History Pt oriented x 4 on arrival. Pt very polite and agreeable to engage in therapy evaluation. Pt was admitted via ED on 09/11/21 with nausea and abdominal pain. Pt was diagnosed with a large bowel obstruction and required an Exploratory laparotomy with distal sigmoid resection with en bloc resection of appendix and right ovary on 09/11/21. Prior to surgery, pt lived at home with a friend. Pt was a very independent individual. Pt was independent with all ADLs and IADLs. She did not require any type of AE during daily routine. 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 The following information was copied from history and physical report: 61-year-old female patient presents to the [facility] emergency department via private vehicle for reports of right flank pain and pressure. She also reports constipation for 7 days, was seen by PCP and prescribed stool softeners but she reports not picking them up. She also reports abdomen is larger than usual with some lower abdominal pain. She denies vomiting. Subjective I want to go home. Pt resting on bsc on arrival. Pt transferred from bsc to bed with cga. Pt sat at eob with sba and demonstrated good sitting balance. Pt stood from eob with cga. Pt engaged in functional mobility task of ~15 feet with cga. Pt sat
--- NOTE | 2021-09-16 11:02 | HMH.PTEV ---
Physical Therapy Evaluation Rehab PT IP Evaluation Start: 09/16/21 09:23 Freq: ONCE Status: Active Protocol: Document 09/16/21 10:57 DIXIEDANIELLA (Rec: 09/16/21 11:01 ROSALIND [id number]) Subjective/History History History 61-year-old female [facility] for reports of right flank pain and pressure. She also reports constipation for 7 days, was seen by PCP and prescribed stool softeners but she reports not picking them up. She also reports abdomen is larger than usual with some lower abdominal pain. She denies vomiting. Pt admitted w/ bowel obstruction Subjective Subjective no complaints from pt - pt A&O x 4 Rehab PT IP Eval Objective Appearance Patient Behavior Appropriate,Cooperative Patient Orientation Person,Place,Birthday,Year, Situation Difficulty following instructions none Speech Pattern Clear,Appropriate Ambulation Patient Able to Ambulate Yes Ambulation Observation IP General Gait Pattern Observation Shuffling Step Ambulation Distance (feet) 50 Ambulation Assistive Device None Ambulation Ability Supervision/Stand by,Contact Guard/Hand Hold Balance Ability to Arise Able, uses arms to help Sitting Balance Steady, safe Standing Balance Narrow stance w/o support Dynamic Sitting Balance Ability Good Dynamic Standing Balance Ability Fair Transfers Bed Transfer Ability Supervision/Stand by Chair Transfer Ability Supervision/Stand by Sit to Stand Bed Transfer Ability Supervision/Stand by,Contact Guard/Hand Hold Sit to Stand Chair Transfer Ability Supervision/Stand by,Contact Guard/Hand Hold ROM All Extremities PT ROM Status WFL MMT All Extremities PT MMT WFL Rehab PT IP prob,goals,plan Problems Date of Evaluation: 09/16/21 PT IP Problems Bed Mobility,Transfers,Self care Rehab Potential Rehab Potential Good Equipment Needs Assistive Devices None / NA Plan PT Intervention Plan Bed Mobility,Transfer
--- NOTE | 2021-09-16 13:03 | SW/DCPLANNER ---
Addendum entered by Zee Mcnulty 09/18/21 09:23: Mesha young/ [facility] stated starter kit is set to be delivered to patient's home today. Patient is able to ambulate/feed/bathe independently and the plan is to return home with her friend. I have informed patient to call CM if she gets home and has any further questions. Patient has no further needs at this time. Original Note: I spoke with this patient regarding plans once medically stable for discharge. PT/OT evaluated this patient and stated that she is safe to return home with home health services. After reviewing patient information due to insurance there is not a home health agency in network. Patient stated that she is comfortable returning home with her friend. Patient also expressed that she feels comfortable to do colostomy changes at home. I have asked patient's nurse (Haydee Quinonez) to please educate this patient regarding colostomy care. Patient information and form will be faxed to [facility] for colostomy supplies this afternoon. Discharge date is unknown at this time.
--- NOTE | 2021-09-16 14:47 | P.PN_ITS ---
[facility] Anesthesia Record Part II Discharge Time: 19:07 (09/11/21) Destination: Medical Surgical Department PACU nurse assessment reviewed?: Yes Patient Condition:: Good Anesthesia Complications:: None Swallowing reflex intact?: Yes Cyanosis?: No Blood Pressure: 115/89 Pulse Rate: 103 Temperature: 98 F Mental Status: Alert & Oriented Pain level:: 6 Nausea and/or vomitting:: None Intake, IV Amount: 0
[2021-09-16 14:48] VITALS: BP 115/89; PULSE 103; TEMP 36.6
--- NOTE | 2021-09-16 15:14 | PC.NURSE ---
rounded on patient. patient is resting at this time no family at bedside.
[2021-09-16 16:00] VITALS: BP 123/66; PULSE 79; RESP 18; TEMP 36.6; O2SAT 94
--- NOTE | 2021-09-16 17:50 | PC.NURSE ---
Pt has rested well this shift. she has been up to the chair off and on. she is able to get up to the BSC with little to no assistance. pt ostomy and midline dressing were changed. no drainage noted to midline site. osotomy is beefy red with no blood noted. lungs are clear, bowel sounds are active. pt has had stool and flatus pass through stoma. pt was instructed on cleaning stoma, and placement of device by myself and keith Rojas RN. pt very receptive to care, device and needs. nad noted.
[2021-09-16 20:00] VITALS: BP 115/66; PULSE 85; RESP 16; TEMP 37; O2SAT 96
--- NOTE | 2021-09-16 21:03 | PC.NURSE ---
rounded on pt at this time. pt used her bedside commode. I emptied it for her. she said she didnt need anything else. will check on pt later.
[2021-09-17 04:00] VITALS: BP 117/67; PULSE 78; RESP 16; TEMP 36.7; O2SAT 96
[2021-09-17 04:06] VITALS: BMI 18.9
--- NOTE | 2021-09-17 05:30 | PC.NURSE ---
pt rested well this shift, pt's vss, pt c/o pain once this shift relieved with prn pain medication, emv 15, perrla at 2mm, moves all extremities, more than adequate uop as pt getting up independently to bsc, pt's ostomy putting out small amount of brown liquid stool, ADRIAN putting out moderate amount of serous fluid, all dressings CDI (dressing and 2-piece appliance changed yesterday on day shift and pt assisted RN)
[2021-09-17 06:34] LABS: Basophils % 0.5 % (0.1-2.0); Eosinophils # 0.4 K/mm3 (0.0-0.4); Eosinophils % 5.8 % (0.1-12.0); Hematocrit 28.4 % (37.0-47.0); Hemoglobin 8.6 g/dL (12.2-16.2); Lymphocytes # 2.1 K/mm3 (0.7-4.5); Lymphocytes % 30.8 % (10-50); Mean Corpuscular HGB Conc 30.5 g/dL (31.8-35.4); Mean Corpuscular Hemoglobin 29.8 pg (27.0-31.2); Mean Corpuscular Volume 97.8 fl (81-99); Monocytes # 0.6 K/mm3 (0.1-1.0); Monocytes % 8.8 % (1.7-9.3); Neutrophils # 3.7 K/mm3 (1.8-7.8); Neutrophils % 54.2 % (37.0-80.0); Platelet Count 470 K/mm3 (142-424); Red Cell Distribution Width 14.4 % (11.5-17.5); White Blood Count 6.8 K/mm3 (4.8-10.8)
[2021-09-17 06:45] LABS: Anion Gap 3.6 mEq/L (5-15); Blood Urea Nitrogen 3 mg/dl (7-17); Calcium 7.8 mg/dl (8.4-10.2); Carbon Dioxide 32 mmol/L (22.0-30.0); Chloride 105 mmol/L (98-107); Creatinine Clearance Estimated 145 mL/min (50-200); Estimated Glomerular Filt Rate 228 ml/min (>60); GFR (African American) 276 ML/MIN (>60); Glucose 94 mg/dl (74-100); Potassium 3.6 mmoL/L (3.5-5.1); Sodium 137 mmol/L (136-145)
--- NOTE | 2021-09-17 07:43 | HMH.GSPN ---
Subjective Patient reports: no new complaints Progress Note: A&P (1) Abscess of sigmoid colon Status: Acute (2) Bowel obstruction Status: Acute Assessment and plan: Overall, doing well status post exploratory laparotomy with sigmoid resection and end colostomy. Follow-up pending laboratory analysis of Chris-Mendes drainage If laboratory analysis reveals no evidence of urologic injury/leak the drain will be removed Likely discharge soon (possibly with Chris-Mendes drain if laboratory analysis unavailable) (3) Colitis Status: Acute (4) Abdominal pain Status: Acute (5) Anemia Status: Acute (6) Tobacco use Status: Acute Exam Vital signs and Labs for Last 24 Hours: Temp Pulse Resp BP Pulse Ox 98.1 F 78 16 117/67 96 09/17/21 04:00 09/17/21 04:00 09/17/21 04:00 09/17/21 04:00 09/17/21 04:00 Laboratory Results - last 24 hr 09/17/21 05:05: WBC 6.8, RBC 2.90 L, Hgb 8.6 L, Hct 28.4 L, MCV 97.8, MCH 29.8, MCHC 30.5 L, RDW 14.4, Plt Count 470 H, MPV 8.0, Neut % (Auto) 54.2, Lymph % (Auto) 30.8, [place] % (Auto) 8.8, Eos % (Auto) 5.8, Baso % (Auto) 0.5, Neut # (Auto) 3.7, Lymph # (Auto) 2.1, [place] # (Auto) 0.6, Eos # (Auto) 0.4, Baso # (Auto) 0.0 09/17/21 05:05: Sodium 137, Potassium 3.6, Chloride 105, Carbon Dioxide 32 H, Anion Gap 3.6 L, BUN 3 L D, Creatinine 0.30 L, Estimated Creat Clear 145, Estimated GFR 228, Est GFR ( Amer) 276, Glucose 94, Calcium 7.8 L I & O for Last 24 hours: Intake & Output 09/14/21 09/15/21 09/16/21 09/17/21 11:59 11:59 11:59 11:59 Intake Total 1733 / 1733 2960 / 2960 3251 / 3251 2300 / 2300 Output Total 4285 / 4285 4675 / 5375 5480 / 5480 3800 / 3800 Balance -2552 / -2552 -1715 / -2415 -2229 / -2229 -1500 / -1500 Weight 112 lb 15.79 oz 113 lb 8.609 oz 108 lb 4.8 oz 100 lb 4 oz Microbiology Reports for the Last 24 Hours: Microbiology 09/11/21 09:18 Blood Blood Culture - Final NO GROWTH AFTER 5 DAYS 09/11/21 09:18 Blood Blood Culture - Final NO GROWTH AFTER 5 DAYS - Constitutional no acute distress - *Routine Respiratory Exam Absent: respiratory distress - *Routine Cardiovascular Exam Absent: tachycardia - *Routine Abdominal Exam Present: ostomy (Viable with moderate output) Comments: Chris-Mendes drain with serous output
[2021-09-17 08:00] VITALS: BP 107/68; PULSE 82; RESP 16; TEMP 36.8; O2SAT 96; O2SAT 98
--- NOTE | 2021-09-17 09:23 | PC.NURSE ---
MIVF turned OFF @ this time
--- NOTE | 2021-09-17 10:51 | HMH.ACPN2 ---
Internal Medicine - PN: Subj *Date: 09/17/21 *Time: 11:39 Interval history: 61-year-old female patient sitting up in bed resting quietly, she denies any chest pain or shortness of breath and abdominal pain is at a tolerable level. She reports eating a regular diet last night for dinner and tolerated without difficulty, did not eat breakfast states she just did not feel like eating. ADRIAN drain intact with serous fluid, colostomy bag with output and pink stoma. Discussed possible discharge home tomorrow she is agreement with this Exam Vital signs and Labs for Last 24 Hours: Temp Pulse Resp BP Pulse Ox 98.3 F 82 16 107/68 L 98 09/17/21 08:00 09/17/21 08:00 09/17/21 08:00 09/17/21 08:00 09/17/21 08:00 Laboratory Results - last 24 hr 09/17/21 05:05: WBC 6.8, RBC 2.90 L, Hgb 8.6 L, Hct 28.4 L, MCV 97.8, MCH 29.8, MCHC 30.5 L, RDW 14.4, Plt Count 470 H, MPV 8.0, Neut % (Auto) 54.2, Lymph % (Auto) 30.8, [place] % (Auto) 8.8, Eos % (Auto) 5.8, Baso % (Auto) 0.5, Neut # (Auto) 3.7, Lymph # (Auto) 2.1, [place] # (Auto) 0.6, Eos # (Auto) 0.4, Baso # (Auto) 0.0 09/17/21 05:05: Sodium 137, Potassium 3.6, Chloride 105, Carbon Dioxide 32 H, Anion Gap 3.6 L, BUN 3 L D, Creatinine 0.30 L, Estimated Creat Clear 145, Estimated GFR 228, Est GFR ( Amer) 276, Glucose 94, Calcium 7.8 L I & O for Last 24 hours: Intake & Output 09/14/21 09/15/21 09/16/21 09/17/21 23:59 23:59 23:59 23:59 Intake Total 2883 / 2883 3571 / 3571 2769 / 2769 1361 / 1361 Output Total 4620 / 4620 4650 / 4650 3555 / 3555 2870 / 2870 Balance -1737 / -1737 -1079 / -1079 -786 / -786 -1509 / -1509 Weight 112 lb 15.79 oz 113 lb 8.609 oz 108 lb 4.8 oz 100 lb 4 oz Microbiology Reports for the Last 24 Hours: Microbiology 09/11/21 09:18 Blood Blood Culture - Final NO GROWTH AFTER 5 DAYS 09/11/21 09:18 Blood Blood Culture - Final NO GROWTH AFTER 5 DAYS - Constitutional no acute distress, chronically ill appearing - *Routine HEENT Exam Head: Present: normocephalic Eye: Present: EOMI ENT: Present: mucous membranes moist - *Routine Neck Exam Present: trachea midline. Absent: tracheal deviation - *Routine Respiratory Exam Present: CTA bilaterally. Absent: accessory muscle use - *Routine Cardiovascular Exam Present: RRR - *Routine Abdominal Exam Present: soft, normoactive bowel sounds. Absent: tenderness, firm - *Routine Extremities Exam Present: full ROM. Absent: cyanosis, clubbing, pulses intact - *Routine Skin Exam Present: intact, dry. Absent: cyanosis - *Routine Neurological Exam Present: alert, oriented X3. Absent: motor deficit, altered mental status - Routine Psychiatric Exam Present: normal affect, normal thought process. Absent: auditory hallucinations Assessment and Plan (1) Abscess of sigmoid colon Status: Acute Category: Medical Code(s): K63.0 - Abscess of intestine (2) Bowel obstruction Status: Acute Qualifiers: Intestinal obstruction type: unspecified Intestinal obstruction extent: unspecified extent Qualified Code(s): K56.609 - Unspecified intestinal obstruction, unspecified as to partial versus complete obstruction Category: Medical Code(s): K56.609 - Unspecified intestinal obstruction, unspecified as to partial versus complete obstruction (3) Colitis Status: Acute Category: Medical Code(s): K52.9 - Noninfective gastroenteritis and colitis, unspecified (4) Abdominal pain Status: Acute Qualifiers: Abdominal location: unspecified location Qualified Code(s): R10.9 - Unspecified abdominal pain Category: Medical Code(s): R10.9 - Unspecified abdominal pain (5) Anemia Status: Acute Qualifiers: Anemia type: unspecified type Qualified Code(s): D64.9 - Anemia, unspecified Category: Medical Code(s): D64.9 - Anemia, unspecified (6) Tobacco use Status: Acute Category: Social Hx Code(s):
--- NOTE | 2021-09-17 15:02 | PC.NURSE ---
pt showered herself without assistance. Sat on shower chair. No issues noted. Pt assisted with midline abd dressing change, emptying colostomy bag, and changing colostomy appliance. No s/s of infection noted in incision area. Stoma is protruding above level of skin and is pink/moist. Stool is soft and brown.
[2021-09-17 15:52] VITALS: O2SAT 96
[2021-09-17 16:00] VITALS: BP 113/64; PULSE 107; RESP 16; TEMP 36.6; O2SAT 98
--- NOTE | 2021-09-17 18:55 | PC.NURSE ---
pt has done very well t/o shift. pt has been interested in learning how to care for colostomy. colostomy and midline dsg changed. 20g iv in R fa SL patent. alert X4. pt has been independent going to bathroom t/o shift with clear yellow urine. pt showered independently. plans for d/c home tomorrow. no concerns at this time.
[2021-09-17 20:00] VITALS: BP 115/78; PULSE 96; RESP 18; TEMP 36.6; O2SAT 95
[2021-09-18] VITALS: BP 130/83; PULSE 76; RESP 20; TEMP 36.8; O2SAT 96
[2021-09-18 04:00] VITALS: BP 131/68; PULSE 82; RESP 18; TEMP 36.8; O2SAT 96
--- NOTE | 2021-09-18 04:00 | PC.NURSE ---
Addendum entered by Zee Mendez RN 09/18/21 04:41: 20ml emptied from azar drain at this time Original Note: patient has done well this shift. was sitting up in chair at beginning of shift. no complaints of pain. once in bed has rested well. remains on room air. bowel sounds active. azar drain draining serious drainage. 70 mls emptied as of now. has been doing adls independently with stand by assistance. vitals stable. no concerns noted.
[2021-09-18 04:35] VITALS: BMI 16.3
[2021-09-18 06:14] LABS: Basophils % 0.6 % (0.1-2.0); Eosinophils # 0.3 K/mm3 (0.0-0.4); Eosinophils % 4.9 % (0.1-12.0); Hematocrit 30.1 % (37.0-47.0); Hemoglobin 10.6 g/dL (12.2-16.2); Mean Corpuscular HGB Conc 35.2 g/dL (31.8-35.4); Mean Corpuscular Hemoglobin 32.3 pg (27.0-31.2); Mean Corpuscular Volume 91.6 fl (81-99); Mean Platelet Volume 7.3 fl (7.4-10.4); Monocytes # 0.5 K/mm3 (0.1-1.0); Monocytes % 7.3 % (1.7-9.3); Neutrophils # 3.9 K/mm3 (1.8-7.8); Neutrophils % 57.2 % (37.0-80.0); Platelet Count 478 K/mm3 (142-424); Red Blood Count 3.28 M/mm3 (4.20-5.40); White Blood Count 6.8 K/mm3 (4.8-10.8)
[2021-09-18 06:36] LABS: Anion Gap 4.5 mEq/L (5-15); Blood Urea Nitrogen 6 mg/dl (7-17); Calcium 8.2 mg/dl (8.4-10.2); Carbon Dioxide 32 mmol/L (22.0-30.0); Chloride 106 mmol/L (98-107); Creatinine Clearance Estimated 94 mL/min (50-200); Estimated Glomerular Filt Rate 163 ml/min (>60); GFR (African American) 198 ML/MIN (>60); Glucose 97 mg/dl (74-100); Potassium 3.5 mmoL/L (3.5-5.1); Sodium 139 mmol/L (136-145)
--- NOTE | 2021-09-18 07:22 | HMH.GSPN ---
Subjective Narrative: Patient without complaints. Tolerating diet. Good colostomy output. Progress Note: A&P (1) Abscess of sigmoid colon Status: Acute (2) Bowel obstruction Status: Acute (3) Colitis Status: Acute (4) Abdominal pain Status: Acute (5) Anemia Status: Acute (6) Tobacco use Status: Acute Assessment and Plan for All Diagnoses:: Discharge planning. Await labs on ADRIAN fluid. Hopefully remove ADRIAN drain. Exam Vital signs and Labs for Last 24 Hours: Temp Pulse Resp BP Pulse Ox 98.2 F 82 18 131/68 96 09/18/21 04:00 09/18/21 04:00 09/18/21 04:00 09/18/21 04:00 09/18/21 04:00 Laboratory Results - last 24 hr 09/18/21 05:48: WBC 6.8, RBC 3.28 L, Hgb 10.6 L, Hct 30.1 L, MCV 91.6, MCH 32.3 H, MCHC 35.2, RDW 14.0, Plt Count 478 H, MPV 7.3 L, Neut % (Auto) 57.2, Lymph % (Auto) 30.0, [place] % (Auto) 7.3, Eos % (Auto) 4.9, Baso % (Auto) 0.6, Neut # (Auto) 3.9, Lymph # (Auto) 2.0, [place] # (Auto) 0.5, Eos # (Auto) 0.3, Baso # (Auto) 0.0 09/18/21 05:48: Sodium 139, Potassium 3.5, Chloride 106, Carbon Dioxide 32 H, Anion Gap 4.5 L, BUN 6 L D, Creatinine 0.40 L D, Estimated Creat Clear 94, Estimated GFR 163, Est GFR ( Amer) 198 D, Glucose 97, Calcium 8.2 L I & O for Last 24 hours: Intake & Output 09/15/21 09/16/21 09/17/21 09/18/21 11:59 11:59 11:59 11:59 Intake Total 2960 / 2960 3251 / 3251 2640 / 2640 480 / 480 Output Total 4675 / 5375 5480 / 5480 3880 / 3880 2120 / 2120 Balance -1715 / -2415 -2229 / -2229 -1240 / -1240 -1640 / -1640 Weight 113 lb 8.609 oz 108 lb 4.8 oz 100 lb 4 oz 86 lb 7 oz - *Routine Abdominal Exam Present: soft, ostomy Comments: ADRIAN with thin serous drainage.
[2021-09-18 08:00] VITALS: BP 110/65; PULSE 91; RESP 16; TEMP 36.5; O2SAT 96; O2SAT 97
--- NOTE | 2021-09-18 09:53 | HMH.DCSUM ---
General - General Admission date:: 09/11/21 Discharge date: 09/18/21 HPI HPI: 61-year-old female patient presents to the [facility] emergency department via private vehicle for reports of right flank pain and pressure. She also reports constipation for 7 days, was seen by PCP and prescribed stool softeners but she reports not picking them up. She also reports abdomen is larger than usual with some lower abdominal pain. She denies vomiting. 09/11/2021 abdominal/pelvic CT: IMPRESSION: Marked wall thickening of the sigmoid colon and rectum with adjacent inflammatory changes. Findings may represent inflammatory bowel the disease or severe colitis, neoplasm is not excluded but felt less likely. This causes colon obstruction. Fluid in the right lateral sigmoid wall is most worrisome for abscess. Pelvic free fluid, likely reactive. Cholelithiasis. Reviewed, Interpreted and Dictated by Rodrick Brumfield III General surgery performed a sigmoid resection and creation of end colostomy for complete bowel obstruction likely secondary to severe diverticular stricture with inflammation and adhesions to surrounding structures 61-year-old female patient sitting up in bed resting quietly she is still a little lethargic. She reports she does have some abdominal pain but it is minimal at present. Abdominal incision with dressing clean/dry/intact. Left-sided stoma pink with collection container intact with very little drainage. Hospital Course Hospital Course: 61-year-old female patient presents to the [facility] emergency department via private vehicle for reports of right flank pain and pressure. She also reports constipation for 7 days, was seen by PCP and prescribed stool softeners but she reports not picking them up. She also reports abdomen is larger than usual with some lower abdominal pain. She denies vomiting. 09/11/2021 abdominal/pelvic CT: IMPRESSION: Marked wall thickening of the sigmoid colon and rectum with adjacent inflammatory changes. Findings may represent inflammatory bowel the disease or severe colitis, neoplasm is not excluded but felt less likely. This causes colon obstruction. Fluid in the right lateral sigmoid wall is most worrisome for abscess. Pelvic free fluid, likely reactive. Cholelithiasis. Reviewed, Interpreted and Dictated by Rodrick Brumfield III 09/11/21 General surgery performed and exploratory laparotomy with distal sigmoid resection with en bloc resection of appendix and right ovary. . Surgeon:: Rodrick Mayes MD Anesthesia: GETA Estimated blood loss (mL): 400 Clinical Note:: Patient is a 61-year-old female who presented to the emergency department with 1 week history of obstipation and increasing abdominal pain. She states that about 8 days ago she thought she may have a urinary tract infection. She then developed some obstipation and difficulty moving her bowels. She was prescribed stool softeners. Her symptoms persisted and progressed. She presented to the emergency department due to the severity of her abdominal pain early this morning. CT scan was performed which revealed findings of marked wall thickening of the sigmoid colon and rectum with adjacent inflammatory changes. It was felt that inflammatory bowel disease or severe colitis or neoplasm could not be excluded. Surgical consultation was obtained. Of note the patient denies any recent changes in bowel habits preceding this. Her bowels have not moved for 1 week. She has had a colonoscopy in March 2020 as well as in 2014 with findings of adenomatous polyps and diverticulosis. Of note, the patient had presented to the emergency department in May of this year with complaints of lower abdominal pain. Work-up included CT scan which revealed some thickening of the bladder and she was treated with antibiotics for urinary tract infection. Operative findings:: Patient had a inflammatory mass in the rectos
--- NOTE | 2021-09-18 10:38 | PC.NURSE ---
ADRIAN drain removed at this time, patient tolerated well, no drainage noted, 2x2 and tegaderm dressing placed.
--- NOTE | 2021-09-18 10:39 | PC.NURSE ---
Discharge order placed, patient is awaiting ride and ostomy supplies.
== END 2021-09-18 12:12 | disposition home or self-care (01) | DRG 331 ==
LOC: ER 09:08 → OR 14:27 → 2ND 17:18
PROVIDERS: Nurse Practitioner Family; Admitting Provider Emergency Medicine; Emergency Provider Emergency Medicine; PCP Emergency Medicine; Referring Provider Surgery; Visit Provider Emergency Medicine
PROC: 0DTN0ZZ Resection of Sigmoid Colon, Open Approach (ICD-10-PCS; CPT 49000; principal; 2021-09-11 14:00)
DX: K57.20 Diverticulitis of large intestine with perforation and abscess without bleeding (principal); F17.210 Nicotine dependence, cigarettes, uncomplicated; D64.9 Anemia, unspecified; K52.9 Noninfective gastroenteritis and colitis, unspecified; M19.90 Unspecified osteoarthritis, unspecified site
CPT/HCPCS: 44143; 58940; 36415; 71045; 74177; 74400; 80048; 80053; 81001; 82150; 83605; 83690; 84145; 85007; 85025; 85651; 86140; 87040; 88307; 93005; 94760; 94761; 97110; 97116; 97161; 97166; 97530; 99285; C9803; J1335; J2405; Q9967; U0003; U0005

== ENCOUNTER 2021-11-07 17:12 | Emergency (ER) | payer OTHER, SELFPAY ==
--- NOTE | 2021-11-07 17:30 | XR_ITS ---
PROCEDURE INFORMATION: Exam: XR Right Hand Exam date and time: 11/07/2021 5:51 PM Age: 61 years old Clinical indication: Pain; Hand; Right; Additional info: Fall TECHNIQUE: Imaging protocol: Radiologic exam of the Right hand. Views: 3 or more views. COMPARISON: None FINDINGS: Bones/joints: Periarticular osteopenia. Mild-moderate degenerative arthritic type changes at the level of the PIP and DIP joints. Mild narrowing of the radiocarpal articulation and 1st carpal metacarpal articulation also demonstrated. Soft tissues: Normal. IMPRESSION: 1. No evidence of acute osseous injury. 2. Mild-moderate degenerative osteoarthritis.
--- NOTE | 2021-11-07 17:30 | XR_ITS ---
PROCEDURE INFORMATION: Exam: XR Right Wrist Exam date and time: 11/07/2021 5:51 PM Age: 61 years old Clinical indication: Pain; Wrist; Right; Additional info: Fall TECHNIQUE: Imaging protocol: Radiologic exam of the Right wrist. Views: 3 or more views. COMPARISON: CR XR ELBOW RT MIN 3V 08/30/2020 2:48 PM FINDINGS: Bones/joints: Mild osteopenia. Mild narrowing of the 1st carpal metacarpal articulation as well as the radiocarpal articulation. There is subtle cortical regularity along the dorsal aspect of the radius. Findings are not confirmed on the remainder of the projections. A subtle fracture could not be entirely excluded. Soft tissues: Mild soft tissue swelling. IMPRESSION: 1. Osteopenia. 2. Subtle cortical regularity involving the distal radius. If there is concern for a fracture, consider splinting with follow-up radiographs. 3. Soft tissue swelling.
--- NOTE | 2021-11-07 17:30 | XR_ITS ---
PROCEDURE INFORMATION: Exam: XR Right Forearm Exam date and time: 11/07/2021 5:51 PM Age: 61 years old Clinical indication: Pain; Lower or forearm; Right; Additional info: Fall TECHNIQUE: Imaging protocol: Radiologic exam of the Right forearm. Views: 2 views. COMPARISON: CR XR ELBOW RT MIN 3V 08/30/2020 2:48 PM FINDINGS: Bones/joints: Cortical irregularity involving the radial head. Findings consistent with posttraumatic deformity which may be relatively chronic. Findings were not demonstrated on the 08/30/2020 examination. No joint effusion demonstrated. Osteopenia. Soft tissues: Normal. IMPRESSION: Posttraumatic deformity involving the radial head. No associated joint effusion. Clinically correlate regarding region of patient's pain.
--- NOTE | 2021-11-07 17:30 | XR_ITS ---
PROCEDURE INFORMATION: Exam: XR Right Shoulder Exam date and time: 11/07/2021 5:51 PM Age: 61 years old Clinical indication: Pain; Shoulder; Right; Additional info: Fall TECHNIQUE: Imaging protocol: Radiologic exam of the Right shoulder. Views: 2 or more views. COMPARISON: CR XR CHEST PORTABLE 09/11/2021 9:16 AM FINDINGS: Bones/joints: Lateral downward angulation of the acromion with respect to the humeral head. Potential for impingement mechanism. Soft tissues: Normal. IMPRESSION: 1. Lateral downward angulation of the acromion with respect to the humeral head. Potential for impingement mechanism. 2. No evidence of acute osseous injury.
--- NOTE | 2021-11-07 17:30 | XR_ITS ---
PROCEDURE INFORMATION: Exam: XR Right Humerus Exam date and time: 11/07/2021 5:51 PM Age: 61 years old Clinical indication: Pain; Upper arm; Right; Additional info: Fall TECHNIQUE: Imaging protocol: Radiologic exam of the Right humerus. Views: 2 or more views. COMPARISON: CR XR CHEST PORTABLE 09/11/2021 9:16 AM FINDINGS: Bones/joints: Normal. Soft tissues: Normal. IMPRESSION: No acute findings.
--- NOTE | 2021-11-07 17:30 | XR_ITS ---
PROCEDURE INFORMATION: Exam: XR Right Elbow Exam date and time: 11/07/2021 5:51 PM Age: 61 years old Clinical indication: Pain; Elbow; Right; Additional info: Fall TECHNIQUE: Imaging protocol: Radiologic exam of the Right elbow. Views: 3 or more views. COMPARISON: CR XR ELBOW RT MIN 3V 08/30/2020 2:48 PM FINDINGS: Bones/joints: Focal calcification again demonstrated in association with the lateral humeral epicondyle. Soft tissues: Normal. IMPRESSION: No evidence of acute osseous injury.
--- NOTE | 2021-11-07 18:41 | EXP.UTC ---
Discharge Plan Disposition Patient Disposition: Home, Self-Care Condition: Good Prescriptions Prescriptions: New ibuprofen [ibuprofen] 600 mg tablet 600 mg PO Q6HP PRN (Reason: Mild Pain) Qty: 30 0RF No Action hydrocodone-acetaminophen 5-325 mg tablet 1 tab PO Q6HP PRN (Reason: Moderate Pain) Qty: 14 0RF buspirone 10 mg tablet 10 mg PO BID Qty: 60 2RF nystatin 100,000 unit/gram cream 1 applic TP TID Qty: 30 0RF budesonide-formoterol [Symbicort] 80-4.5 mcg/actuation HFA aerosol inhaler See Rx Instructions .ROUTE .COMPLEX Qty: 10.2 3RF Dose Instruction: INHALE 2 PUFFS BY MOUTH 2 TIMES A DAY Rx Instructions: INHALE 2 PUFFS BY MOUTH 2 TIMES A DAY ergocalciferol (vitamin D2) 1,250 MCG capsule 1,250 mcg PO WEEKLY cholecalciferol (vitamin D3) 1,000 UNIT capsule 1,000 unit PO DAILY amfewpiz-kfg-gunhq acid-vit K 1 EACH capsule 1 each PO DAILY gabapentin 600 MG tablet 600 mg PO TID diclofenac sodium 75 MG tablet,delayed release (DR/EC) 75 mg PO BID bisacodyl 5 MG tablet,delayed release (DR/EC) 5 mg PO HS polyethylene glycol 3350 238 GM powder 17 g PO DAILY ondansetron 4 MG tablet,disintegrating 4 mg PO TIDP PRN (Reason: Nausea) Qty: 30 0RF Referrals Referrals: Titi Smalls JR, MD [Physician] - Enter time for follow up Chavo Perales MD [Primary Care Provider] - Enter time for follow up Activity Restrictions/Add. Instructions Additional Instructions/Restrictions: Rest the extremity, apply ice for 15 minutes as tolerated three or four times per day, Wear the erich wrap for compression, Elevate the extremity as tolerated while you are resting. Take ibuprofen for pain. I sent in a prescription to your pharmacy. Follow up with Dr. Smalls (orthopedics).. I put in a referral and called him on the phone, but you need to call his office and schedule an appointment. Please call on Wednesday morning for a follow up. His office number will be on this paperwork. Follow up with your regular doctor. GO TO THE ER FOR ANY WORSENING SYMPTOMS Clinical Impressions Clinical Impression: Internal impingement of right shoulder Closed fracture of head of right radius Qualifiers: Encounter type: initial encounter Fracture alignment: nondisplaced Qualified Code(s): S52.124A - Nondisplaced fracture of head of right radius, initial encounter for closed fracture Stand Alone Forms Stand Alone Forms: Work/School Release Instructions Patient Instructions: DI for Forearm Fracture, DI for Shoulder Pain Discharge ED Provider: Ethan Polanco [facility] General Stated complaint: [id number]@home fell injured shoulder Time Seen by Provider: 11/07/21 18:41 History of Present Illness Provider Complaint: She states that she fell last night. She came down on her right shoulder and her right elbow. She has been having right shoulder and right forearm pain since then. Related Data Home Medications Medication Instructions Recorded Confirmed cholecalciferol (vitamin D3) 25 1,000 unit PO DAILY Supplement 04/02/20 10/21/21 mcg (1,000 unit) capsule ergocalciferol (vitamin D2) 1,250 1,250 mcg PO WEEKLY Supplement 04/02/20 10/21/21 mcg (50,000 unit) capsule agibvrbrzqzt-gxuugjxl-qpphy acid 1 each PO DAILY Supplement 04/02/20 10/21/21 400 mcg-vitamin K 80 mcg capsule bisacodyl 5 mg tablet,delayed 5 mg PO HS constipation 09/11/21 10/21/21 release diclofenac sodium 75 mg 75 mg PO BID Pain 09/11/21 10/21/21 tablet,delayed release gabapentin 600 mg tablet 600 mg PO TID pain 09/11/21 10/21/21 polyethylene glycol 3350 17 17 g PO DAILY constipation 09/11/21 10/21/21 gram/dose oral powder Previous Rx's Medication Instructions Recorded ondansetron 4 mg disintegrating 4 mg PO TIDP PRN Nausea #30 tabs 09/18/21 tablet nystatin 100,000 unit/gram topical 1 applic topical TID #30 grams 09/24/21 cream buspirone 10 mg tablet 10 mg PO BID #6
[2021-11-07 18:45] VITALS: BP 137/64; PULSE 60; RESP 18; TEMP 36.9; O2SAT 97; BMI 16.6
[2021-11-07 19:56] VITALS: BP 137/64; PULSE 60; RESP 18; TEMP 36.9
== END 2021-11-07 19:58 | disposition home or self-care (01) ==
PROVIDERS: Emergency Provider Nurse Practitioner Family; PCP Emergency Medicine
DX: S52.124A Nondisplaced fracture of head of right radius, initial encounter for closed fracture (principal); M25.511 Pain in right shoulder; M79.631 Pain in right forearm; M25.811 Other specified joint disorders, right shoulder; I25.2 Old myocardial infarction; N18.9 Chronic kidney disease, unspecified; G40.909 Epilepsy, unspecified, not intractable, without status epilepticus; F17.210 Nicotine dependence, cigarettes, uncomplicated; Z79.1 Long term (current) use of non-steroidal anti-inflammatories (NSAID); Z79.51 Long term (current) use of inhaled steroids
CPT/HCPCS: 73030; 73060; 73080; 73090; 73110; 73130; 99213; G0463

== ENCOUNTER 2021-11-18 14:02 | Outpatient (RCR) | payer OTHER, SELFPAY ==
--- NOTE | 2021-11-18 14:49 | HMH.OTOPEV ---
OT Inpatient Evaluation Rehab OT Outpatient Eval Start: 11/18/21 14:36 Freq: Status: Active Protocol: Document 11/18/21 14:37 CHELITA (Rec: 11/18/21 14:49 [id number] E-signed By Ladonna Pena, OT Outpatient Therapy Subjective History Subjective History Pt is a 61 year old female who reports to therapy for an initial evaluation. Pt's order is written for a Right elbow fx. However, pt explains her main complaint is her right shoulder. She is within normal limits with all Elbow AROM and strength. She also explains she does not have an elbow fx. After reviewing x-ray reports there appears to be no elbow fx. Therpaist contacted ortho's office to have order switched to shoulder decline. Pt presents with a significant decline in right shoulder AROM and strength. Pt is right hand dominant. Pt explains on 11/06/21 she had a fall and tried to catch herself with her right arm. This started her pain and decline in function at right shoulder. 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 Pt will continue to be seen twice a week to address right shoulder deficits. Chief Complaint Pain,Stiff,Weakness Symptom Type Ache,Throb,Sharp,Dull Symptoms Relieved By Ice Symptoms Aggravated By Physical Activity,Lifting Prior Functional Limitations None Current Functional Limitations Reaching,Lifting,Housework, Dressing,Driving,Sleeping, Recreation Activity Symptom Description Constant and Continuous Level of pain today (0-10) 3 Pain scale - at its best (0-10) 3 Pain scale - at its worst (0-10) 10 Shoulder/Elbow Eval Shoulder Objective Measurements Shoulder ROM Right Shoulder Abduction Active Range of 100 degrees Motion (degrees) Shoulder Flexion Active Range of Motion 90 degrees (degrees) Query Text: Shoulder External Rotation Active Range 75 degrees
== END 2021-11-18 14:05 | disposition home health service (06) ==
LOC: OT 14:02
PROVIDERS: PCP Emergency Medicine; Visit Provider Orthopaedic Surgery
DX: S52.121A Displaced fracture of head of right radius, initial encounter for closed fracture (principal)
CPT/HCPCS: 97166

== ENCOUNTER → 2021-12-19 13:46 | Outpatient (CLI) | payer OTHER, SELFPAY | PROVIDERS: PCP Emergency Medicine; Visit Provider Orthopaedic Surgery | DX: S52.121A Displaced fracture of head of right radius, initial encounter for closed fracture (principal) ==

== ENCOUNTER → 2022-02-17 15:10 | Outpatient (CLI) | payer OTHER, SELFPAY ==
[2022-02-17 19:34] LABS: Amphetamine/Metha Screen,Urine Negative ng/ml (<1000)
[2022-02-17 19:35] LABS: Barbiturates Screen,Urine Negative ng/ml (<200); Benzodiazepines Screen,Urine Negative ng/ml (<200)
[2022-02-17 19:36] LABS: Cannabinoid Screen,Urine Positive ng/ml (<50); Opiate Screen,Urine Positive ng/ml (<300)
[2022-02-17 19:37] LABS: Cocaine Screen,Urine Negative ng/ml (<300)
[2022-02-17 19:38] LABS: Methadone Screen,Urine Negative ng/ml (<300); Phencyclidine Screen,Urine Negative ng/ml (<25)
== END ==
PROVIDERS: PCP Emergency Medicine; Visit Provider Emergency Medicine
DX: Z79.899 Other long term (current) drug therapy (principal)
CPT/HCPCS: 80305

== ENCOUNTER → 2022-06-02 11:18 | Outpatient (CLI) | payer OTHER, SELFPAY ==
[2022-06-02 12:30] LABS: Blood Urea Nitrogen 11 mg/dl (7-17); Estimated Glomerular Filt Rate 126 ml/min (>60); GFR (African American) 152 ML/MIN (>60)
== END ==
PROVIDERS: PCP Emergency Medicine; Visit Provider Surgery
DX: Z01.812 Encounter for preprocedural laboratory examination (principal)
CPT/HCPCS: 36415; 82565; 84520

== ENCOUNTER → 2022-06-12 11:00 | Outpatient (CLI) | payer OTHER, SELFPAY ==
[2022-06-12 19:30] LABS: Amphetamine/Metha Screen,Urine Negative ng/ml (<1000)
[2022-06-12 19:31] LABS: Barbiturates Screen,Urine Negative ng/ml (<200); Benzodiazepines Screen,Urine Negative ng/ml (<200)
[2022-06-12 19:32] LABS: Cannabinoid Screen,Urine Positive ng/ml (<50); Cocaine Screen,Urine Negative ng/ml (<300)
[2022-06-12 19:33] LABS: Methadone Screen,Urine Negative ng/ml (<300)
[2022-06-12 19:34] LABS: Opiate Screen,Urine Negative ng/ml (<300); Phencyclidine Screen,Urine Negative ng/ml (<25)
== END ==
PROVIDERS: PCP Emergency Medicine; Visit Provider Emergency Medicine
DX: Z79.899 Other long term (current) drug therapy (principal)
CPT/HCPCS: 80305

== ENCOUNTER → 2022-06-12 23:52 | Outpatient (CLI) | payer OTHER, SELFPAY | PROVIDERS: PCP Emergency Medicine; Visit Provider Emergency Medicine | DX: Z79.899 Other long term (current) drug therapy (principal) ==

== ENCOUNTER → 2022-06-17 09:45 | Outpatient (CLI) | payer OTHER, SELFPAY ==
--- NOTE | 2022-06-17 09:46 | CT_ITS ---
FINAL REPORT TECHNIQUE: After the administration of oral and intravenous contrast, axial images were obtained through the abdomen and pelvis by computed tomography. The study was performed with techniques to keep radiation dose as low as reasonably achievable, (ALARA). Individual dose reduction techniques using automated exposure control or adjustment of mA and/or kV according to the patient's size were employed. CLINICAL HISTORY: pre op clostomy take down COMPARISON: September 11, 2021 FINDINGS: Abdomen: There is scarring in the left lung base. The liver parenchyma is homogeneous. A large gallstone is again seen measuring approximately 2.8 cm in diameter. The spleen, pancreas, adrenals and kidneys appear unremarkable. There is a new left anterior abdominal wall ostomy. The aorta is normal in caliber. There is no free fluid or adenopathy. Pelvis: There are multiple surgical clips in the pelvis. There is some soft tissue density in the posterior inferior left hemipelvis. It is unclear if it represents a loop of unopacified bowel or possibly the uterus, favored unopacified bowel. The urinary bladder is unremarkable. There is no free fluid or adenopathy. 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 IMPRESSION: Interval left anterior abdominal wall ostomy. Questionably thickened bowel in the posterior left hemipelvis. A repeat scan with rectal contrast may be of value to better clarify. Large gallstone in gallbladder. Reviewed, Interpreted and Dictated by August Carolina MD Transcribed by Kathleen Magaña Authenticated and . [facility]
== END ==
PROVIDERS: PCP Emergency Medicine; Visit Provider Surgery
DX: Z01.818 Encounter for other preprocedural examination (principal); K56.609 Unspecified intestinal obstruction, unspecified as to partial versus complete obstruction
CPT/HCPCS: 74177; Q9967

== ENCOUNTER 2022-07-17 12:33 | Day surgery (SDC) | payer OTHER, SELFPAY ==
--- NOTE | 2022-07-17 13:14 | P.PN_ITS ---
[facility] Disclaimer: The information contained in this section may have been updated after the patient was seen, as this information can be updated by other users. Medical History Nasal congestion Sore throat Surgical History History of History of colon resection History of colonoscopy History of tonsillectomy Family History Other Cancer Heart attack Kidney disease Seizure Social History (Updated 07/17/22 @ 13:18 by Sylvie Hassan RN) Smoking Status: Current every day smoker tobacco type: cigarettes packs per day: 1 pack-years: 46 second hand exposure: No alcohol intake: current substance use type: denies use current occupational status: employed Travel in the last 8 weeks: None household members: other housing: house marital status: single education level: college current occupational exposures/hazards: No caffeine: Yes special renzo needs: No agree to transfusion: No do you feel safe at home: Yes victim of physical abuse: No victim of emotional abuse: No victim of sexual abuse: No would you like helpful sources: No [facility] Anesthesia Checklist Patient Identification Patient Identification: Arm Band and Verbal (Name & ) Structural Data Admitted From: Home Planned Operative Procedure/s: Colonoscopy Consent for Planned Operative Procedure(s) Verified: Yes NPO Status Verified Time NPO: 00:00 Additional verifications Anesthesia Reactions: No Hx Blood Transfusions: No Blood Transfusion Reaction: No Airway Assessment C-Spine Mobility Assessed: Yes TMJ Mobility Assessed: Yes Dentition: Dentures-poor fitting Neurological Assessment Level of Consciousness: Awake Hx Seizures: No Numbness or tingling in extremities: No Anesthesia Plan Anesthesia Risk discussed: Yes Anesthesia Plan: Verified ASA Class: II Anesthesia Type: MAC
[2022-07-17 13:24] VITALS: BP 135/75; PULSE 86; RESP 20; TEMP 36.3; O2SAT 97
[2022-07-17 13:38] VITALS: O2SAT 97
--- NOTE | 2022-07-17 13:47 | HMH.SCOPE ---
Procedure: Date: 07/17/22 Patient Date of :: 1960 Procedure Performed:: Flexible sigmoidoscopy Indications:: Patient presents for flexible sigmoidoscopy.? She had undergone emergent Nunes's procedure for complicated diverticulitis with obstruction on 09/11/2021.? ?Pathology revealed marked diverticulosis and diverticulitis with attached fallopian tube and appendix as well as expected.? She has been doing well.? She had contacted the office recently regarding being seen for some irritation with a knot suture in her incision.? Of note, the patient did undergo colonoscopy in March 2020 which revealed no polyps but merely diverticulosis.? Of note, the patient does have asymptomatic gallstones.? She would like to look toward having a colostomy takedown.? I ordered a CT scan to evaluate.? I do not feel that she necessarily needs a colonoscopy as she had one within [address].? [address] scan reveals questionably thickened bowel in the posterior left hemipelvis.? A repeat CT scan with rectal contrast may be of value to better clarify.? Large gallstone in the gallbladder. Given the findings of thickening of the defunctionalized portion of small bowel I planned for flexible sigmoidoscopy after self administration of enemas.? If this is unremarkable likely plan to proceed with colostomy takedown.? Patient does ask about how long she would need to be off work.? 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 I would guesstimate 4 to 6 weeks.? It does seem as though her gallstone is not symptomatic but consideration may be given for possible cholecystectomy. Performing Provider:: Rodrick Mayes MD Referring Provider:: Lonny Pearles Sedation:: MAC sedation Procedure:: Patient history was obtained and appropriate physical examination was performed. Patient's medications and allergies were reviewed. Informed consent was obtained after explaining the benefits, alternatives, and risks of the procedure including, but not limited to, bleeding, perforation, missed lesions, and adverse reaction to anesthesia medications. Patient was transported to endoscopy procedure room. Patient was connected to monitoring devices. Throughout the procedure the patient's blood pressure, pulse, and oxygen saturations were monitored continuously. Patient identification and planned procedure were verified by the staff. Patient was positioned in lateral decubitus position. Digital anorectal exam was performed. Variable stiffness Olympus colonoscope was inserted via the anus. It was advanced to the rectosigmoid where it appears the staple line was encountered. There was 1 or 2 diverticuli at this location. There was minimal scant proctocolitis secondary to defunctionalized colon but this was relatively unremarkable. She had minimal hemorrhoids. Findings:: Unremarkable rectosigmoid colon Recommendations:: Plan to start making plans for colostomy takedown. May plan for possible cholecystectomy. Complications:: None immediate Estimated blood obtained (mL): 0
[2022-07-17 13:49] VITALS: BP 108/57; PULSE 81; RESP 14; TEMP 37.1; O2SAT 95
[2022-07-17 13:59] VITALS: BP 104/61; PULSE 70; RESP 16; O2SAT 97
[2022-07-17 14:09] VITALS: BP 96/58; PULSE 69; RESP 16; O2SAT 97
[2022-07-17 14:19] VITALS: BP 101/58; PULSE 72; RESP 16; TEMP 36.4; O2SAT 97
== END 2022-07-17 14:30 | disposition home or self-care (01) ==
PROVIDERS: PCP Emergency Medicine; Visit Provider Surgery
PROC: 0DJD8ZZ Inspection of Lower Intestinal Tract, Via Natural or Artificial Opening Endoscopic (ICD-10-PCS; CPT 45330; principal; 2022-07-17 13:30)
DX: K57.30 Diverticulosis of large intestine without perforation or abscess without bleeding (principal); Z93.3 Colostomy status
CPT/HCPCS: 45330

== ENCOUNTER 2022-07-30 06:59 | Inpatient (IN) | payer OTHER, SELFPAY ==
[2022-07-29 11:07] VITALS: BMI 16.6
[2022-07-30] VITALS (32 sets, daily range): BP systolic 87–169; BP diastolic 43–106; PULSE 64–93; RESP 14–18; TEMP 36.2–43; O2SAT 88–100; BMI 17.6
[2022-07-30 06:33] LABS: Coronavirus 19, PCR Not Detected (NotDetected); Influenza A, PCR Not Detected (NotDetected); Influenza B, PCR Not Detected (NotDetected)
[2022-07-30 06:38] LABS: Basophils # 0.1 K/mm3 (0-0.2); Eosinophils # 0.3 K/mm3 (0.0-0.4); Hematocrit 45.2 % (37.0-47.0); Hemoglobin 14.5 g/dL (12.2-16.2); Lymphocytes % 48.6 % (10-50); Mean Corpuscular Hemoglobin 31.2 pg (27.0-31.2); Mean Corpuscular Volume 97.4 fl (81-99); Mean Platelet Volume 7.8 fl (7.4-10.4); Monocytes # 0.6 K/mm3 (0.1-1.0); Monocytes % 6.9 % (1.7-9.3); Neutrophils # 3.3 K/mm3 (1.8-7.8); Neutrophils % 39.5 % (37.0-80.0); Platelet Count 325 K/mm3 (142-424); Red Blood Count 4.64 M/mm3 (4.20-5.40); Red Cell Distribution Width 13.3 % (11.5-17.5); White Blood Count 8.2 K/mm3 (4.8-10.8)
[2022-07-30 06:46] LABS: Alanine Aminotransferase 21 U/L (12-78); Albumin Level 4.7 g/dl (3.5-5.0); Albumin/Globulin Ratio 1.5 (1.1-1.8); Alkaline Phosphatase 102 U/L (38-126); Aspartate Amino Transferase 37 U/L (14-36); Bilirubin,Total 0.7 mg/dl (0.2-1.3); Blood Urea Nitrogen 5 mg/dl (7-17); Calcium 8.9 mg/dl (8.4-10.2); Carbon Dioxide 33 mmol/L (22.0-30.0); Chloride 97 mmol/L (98-107); Creatinine Clearance Estimated 75 mL/min (50-200); Estimated Glomerular Filt Rate 126 ml/min (>60); GFR (African American) 152 ML/MIN (>60); Globulin 3.2 g/dL (1.3-3.2); Glucose 88 mg/dl (74-100); Sodium 142 mmol/L (136-145); Total Protein,Serum 7.9 g/dl (6.3-8.2)
--- NOTE | 2022-07-30 07:48 | HMH.PHAINT1 ---
Pharmacy Intervention Comments: MEDICATION RECONCILIATION COMPLETED ON PATIENT USING EXTERNAL FILL HISTORY FROM PHARMACY, MARTA REPORT, AND LIST FROM PCP OFFICE. -MATTHEW SANTIAGOD
--- NOTE | 2022-07-30 09:21 | SUR.PREOP ---
0921- pt family not in waiting room to give update to.
--- NOTE | 2022-07-30 09:26 | SUR.OPER ---
0939- FAMILY UPDATED BY RISA IN PREOP PER MD ORDER. EVERYTHING IS GOING FINE, PATIENT IS STABLE. WE JUST MIGHT BE GOING LONGER THAN EXPECTED.
--- NOTE | 2022-07-30 11:11 | EXP.OP.NOTE ---
Date of procedure: 07/30/22 Pre-op Diagnosis:: Obsolete colostomy Post-op Diagnosis:: Same Procedure performed:: Exploratory laparotomy with takedown reversal of end colostomy with end-to-end stapled the pelvic anastomosis Surgeon:: Rodrick Mayes MD Production Cook(s):: Shiv Holliday MD [employer]:: Other Anesthesia: GETA Estimated blood loss (mL): 100 Clinical Note:: Patient presents for elective colostomy takedown and reversal.? She is a 62-year-old female.? She had undergone emergent Nunes's procedure for complicated diverticulitis with obstruction on 09/11/2021.? ?At that time she had a significant inflammatory mass at the rectosigmoid region with small abscess within the colon wall with a mass adherent to surrounding pelvic structures including appendix and right ovary. At the time there was concern that this was a neoplasm. Pathology revealed marked diverticulosis and diverticulitis with attached fallopian tube and appendix.? She has been doing well.? She had contacted the office recently regarding being seen for some irritation with a knot suture in her incision.? Of note, the patient did undergo colonoscopy in March 2020 which revealed no polyps but merely diverticulosis.? In anticipation of colostomy takedown I ordered a CT scan to evaluate.? I do not feel that she necessarily needs a colonoscopy as she had one within 2 years.? CT scan reveals questionably thickened bowel in the posterior left hemipelvis.? A repeat CT scan with rectal contrast may be of value to better clarify.? Large gallstone in the gallbladder. ? I performed flexible sigmoidoscopy.? This was unremarkable and defunctionalized rectosigmoid colon was clear. Operative findings:: She has significant intra-abdominal adhesions within the lower abdomen and pelvis. There were loops of small bowel adherent to the distal stump and the uterus was adherent to the rectosigmoid stump as well. Operative note:: Patient was taken to the operating room. She was given preoperative intravenous antibiotics. Patient had also been given outpatient mechanical and antibiotic bowel prep. In the operating room she was placed in a supine position. General anesthesia was induced via endotracheal tube. The colostomy was closed after prepping with a running locking 0 silk suture. She was repositioned in modified lithotomy position. Espinosa catheter was placed. Abdomen and perineum were prepped and draped in the standard surgical fashion. Midline laparotomy was performed in her previous scar. Dissection was carried down to the fascia which was incised. Abdomen was carefully entered. Exposure was achieved. There were extensive intra-abdominal adhesions with interloop adhesions of small bowel and small bowel adherent to the rectosigmoid stump as well as to the left colon at the site of the colostomy. Dissection was carried out freeing the small bowel and lysing adhesions. This was rather prolonged portion of the procedure. Once intra-abdominal adhesions were freed and the colostomy was freed from the posterior fascia elliptical incision was made around the colostomy site using electrocautery. Dissection was carried down to the fascia freeing the colon from the fascia. The colostomy portion of the colon was then ultimately delivered into the abdominal cavity. Dissection was carried out in the pelvis freeing the rectosigmoid colon from the uterus using careful Metzenbaum dissection. This appeared to free up enough colon to allow a stapled anastomosis. The colon was clamped with the pursestring device several centimeters proximal to the colostomy site and 2-0 Prolene suture was placed as a pursestring. Intra-abdominal portion of the colostomy was excised sharply. Some use of electrocautery was used on the mucosa for hemostasis the colon was then opened. The dilators were inserted with the 28 mm dilator being the appropriate size. The 29 mm end-to-end anastomosis stapler anvil was then inserted into the proximal
--- NOTE | 2022-07-30 11:29 | EXP.ANES.I ---
[facility] Anesthesia Record Part I Anesthesia Record I Intake, IV Amount: 1,300 Estimated blood loss (mL): 100 Urine output (mL): 100 Blood Products used (#): none Blood Pressure: 169/102 SaO2: 97 Pulse Rate: 80 Respiratory Rate: 14 Temperature: 97.2 F Patient is:: Drowsy and Stable Stable to PACU at:: 11:22
--- NOTE | 2022-07-30 11:35 | SUR.PHASEI ---
When assessing pt at 1132, I found that pt's dressing had become saturated with a large amount of sanguineous drainage. A firm knot was also felt on pt's left side under dressing. MD was called. I was unable to reach MD by phone. At 1140 MD was reached and was at bedside to assess pt. MD removed dressing and stated pt would need to go back to OR to have the area drained. VSS. Pt alert and oriented, no signs of immediate distress.
--- NOTE | 2022-07-30 11:55 | EXP.GEN.HP ---
HPI HPI HPI: Patient is a 62-year-old female with history of osteoarthritis and radiculopathy with some chronic pain, tobacco abuse, anxiety, history of complicated diverticulitis. She presents for elective colostomy takedown and reversal.? She had undergone emergent Nunes's procedure for complicated diverticulitis with obstruction on 09/11/2021.? ?At that time she had a significant inflammatory mass at the rectosigmoid region with small abscess within the colon wall with a mass adherent to surrounding pelvic structures including appendix and right ovary.? At the time there was concern that this was a neoplasm.? Pathology revealed marked diverticulosis and diverticulitis with attached fallopian tube and appendix.? She has been doing well.? She had contacted the office recently regarding being seen for some irritation with a knot suture in her incision.? Of note, the patient did undergo colonoscopy in March 2020 which revealed no polyps but merely diverticulosis.? In anticipation of colostomy takedown I ordered a CT scan to evaluate.? I do not feel that she necessarily needs a colonoscopy as she had one within [address] scan reveals questionably thickened bowel in the posterior left hemipelvis.? A repeat CT scan with rectal contrast may be of value to better clarify.? Large gallstone in the gallbladder. ? I performed flexible sigmoidoscopy.? This was unremarkable and defunctionalized rectosigmoid colon was clear. [facility] Disclaimer: The information contained in this section may have been updated after the patient was seen, as this information can be updated by other users. Medical History (Updated 07/30/22 @ 12:02 by Rodrick Mayes MD) Nasal congestion Sore throat Surgical History (Updated 07/30/22 @ 06:56 by Sylvie Hassan RN) History of appendectomy History of History of colon resection History of colonoscopy History of tonsillectomy Family History Other Cancer Heart attack Kidney disease Seizure Social History (Updated 07/30/22 @ 06:19 by Sylvie Hassan RN) Smoking Status: Current every day smoker tobacco type: cigarettes packs per day: 1 pack-years: 46 second hand exposure: No alcohol intake: current substance use type: former substance user and marijuana current occupational status: employed Travel in the last 8 weeks: None household members: friend(s) housing: house lives independently: Yes marital status: single education level: college service: No current occupational exposures/hazards: No caffeine: Yes special renzo needs: No agree to transfusion: No do you feel safe at home: Yes victim of physical abuse: No victim of emotional abuse: No victim of sexual abuse: No would you like helpful sources: No Meds Home Medications and Allergies Home Medications Medication Instructions Recorded Confirmed Type cholecalciferol (vitamin D3) 25 1,000 unit PO DAILY Supplement 04/02/20 07/30/22 History mcg (1,000 unit) capsule ergocalciferol (vitamin D2) 1,250 1,250 mcg PO WEEKLY Supplement 04/02/20 07/30/22 History mcg (50,000 unit) capsule yehhojjsmigk-xbzzhehk-hdwdq acid 1 each PO DAILY Supplement 04/02/20 07/30/22 History 400 mcg-vitamin K 80 mcg capsule gabapentin 600 mg tablet 600 mg PO QID pain #120 tabs 06/12/22 07/30/22 Rx meclizine 25 mg tablet 25 mg PO DAILYP PRN Dizziness 06/18/22 07/30/22 History budesonide-formoterol HFA 80 2 puff inhalation BID Breathing 07/17/22 07/30/22 History mcg-4.5 mcg/actuation aerosol problems inhaler (Symbicort) fluticasone propionate 50 1 spray intranasal DAILY allergies 07/17/22 07/30/22 History mcg/actuation nasal spray,suspension (Flonase Allergy Relief) oxycodone 5 mg tablet 5 mg PO TID Pain 07/17/22 07/30/22 History albuterol sulfate 90 mcg/actuation 2 inh inhalation Q4HP PRN 07/30/22 07/30/22 History breath activa
--- NOTE | 2022-07-30 12:45 | P.OP_ITS ---
Date of procedure: 07/30/22 Pre-op Diagnosis:: Incisional surgical wound bleeding Post-op Diagnosis:: Same Procedure performed:: Reopening of recent surgical site with evacuation of hematoma, washout, and reclosure Surgeon:: Rodrick Mayes MD PROCESS MANUFACTURING ENGINEER:: Dominik Prado Anesthesia: GETMike Estimated blood loss (mL): 70 Clinical Note:: Patient is a 62-year-old female who underwent exploratory laparotomy with takedown of colostomy with pelvic stapled anastomosis this morning. In the PACU she had some appreciable serous drainage on her incision. There was some concern from the nursing staff. The wound was inspected in the PACU and she had an appreciable hematoma at the colostomy site incision. For patient's comfort and for possible active bleeding plan was made for return to the operating room for reopening of this incision. Operative findings:: She had moderate hematoma at the colostomy site incision. Underlying fascia was intact. There is some minor oozing from the subcutaneous tissues. Operative note:: Patient was taken to the operating room. She was positioned in supine position. General anesthesia was induced via endotracheal tube. Abdomen was prepped and draped. The Ethilon sutures placed in the colostomy site incision were removed. With gentle probing of the incision there was evacuation of a moderately large amount of hematoma, approximately 70 cc. The underlying subcutaneous of Vicryl sutures were removed. Wound was irrigated. There was some minor oozing from the subcutaneous tissues laterally. [place] use of electrocautery was utilized for good hemostasis. Thorough irrigation was performed. There appeared to be good hemostasis. Skin was closed with multiple interrupted 2-0 nylon vertical mattress sutures. Clean dry sterile dressing was applied. Condition: stable Disposition: PACU Complications:: None immediately apparent
--- NOTE | 2022-07-30 12:48 | EXP.ANES.I ---
[facility] Anesthesia Record Part I Anesthesia Record I Intake, IV Amount: 500 Estimated blood loss (mL): 50 Urine output (mL): 0 Blood Products used (#): none Blood Pressure: 144/73 SaO2: 100 Pulse Rate: 64 Respiratory Rate: 16 Temperature: 97.1 F Patient is:: Drowsy Stable to PACU at:: 12:45
--- NOTE | 2022-07-30 13:58 | SUR.OPER ---
0950- ORDERED FOR PATIENT TO HAVE NG PLACED AT BEDSIDE DURING PROCEDURE. LUDY VERNON PLACED NG. PATIENT TOLERATED WELL.
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
[2022-07-30 15:56] LABS: Microscopic,Cath URINE MICROSCOPIC (MICROSCOPIC)
[2022-07-30 16:14] LABS: Appearance,Urine/Cath CLEAR (Clear); Bilirubin,Cath Negative (Negative); Blood, Urine/Cath TRACE-L (Negative); Color,Urine/Cath YELLOW (Yellow); Glucose,Urine/Cath (UA) Negative (Negative); Ketones,Urine/Cath TRACE (Negative); Leukocyte Esterase,Cath Negative (Negative); Nitrate,Cath Negative (Negative); PH,Urine/Cath 7.5 (5.0-8.5); Protein,Urine/Cath Negative (Negative)
[2022-07-30 16:39] LABS: RBC,Urine/Cath Occasional # /hpf (0-3)
--- NOTE | 2022-07-30 17:12 | PC.NURSE ---
[address] Tracy face to face that 1 lpm oxygen via nc applied to pt at this time.
--- NOTE | 2022-07-30 19:07 | PC.NURSE ---
184 pt ng tube disconnected from suction r/t medication admin through ng tube. to be reconnected appro 1914
--- NOTE | 2022-07-30 22:52 | PC.NURSE ---
10mg Morphine cleared from CULINARY ARTIST pump at this time
[2022-07-31] VITALS (16 sets, daily range): BP systolic 91–177; BP diastolic 44–102; PULSE 67–120; RESP 13–18; TEMP 36.3–36.9; O2SAT 89–99; BMI 19.1
--- NOTE | 2022-07-31 05:31 | PC.NURSE ---
Spoke with Richardson with [facility], he states it is ok to run Ertapenem as a secondary with LR
[2022-07-31 06:07] LABS: Basophils % 0.3 % (0.1-2.0); Eosinophils % 0.1 % (0.1-12.0); Lymphocytes # 1.5 K/mm3 (0.7-4.5); Lymphocytes % 16.6 % (10-50); Mean Corpuscular HGB Conc 32.9 g/dL (31.8-35.4); Mean Corpuscular Hemoglobin 32.3 pg (27.0-31.2); Mean Platelet Volume 7.7 fl (7.4-10.4); Monocytes # 0.8 K/mm3 (0.1-1.0); Monocytes % 8.8 % (1.7-9.3); Neutrophils # 6.7 K/mm3 (1.8-7.8); Neutrophils % 74.3 % (37.0-80.0); Platelet Count 230 K/mm3 (142-424); Red Blood Count 2.95 M/mm3 (4.20-5.40); Red Cell Distribution Width 13.4 % (11.5-17.5)
[2022-07-31 06:18] LABS: Alanine Aminotransferase 13 U/L (12-78); Albumin Level 2.6 g/dl (3.5-5.0); Albumin/Globulin Ratio 1.2 (1.1-1.8); Alkaline Phosphatase 63 U/L (38-126); Anion Gap 9.7 mEq/L (5-15); Aspartate Amino Transferase 31 U/L (14-36); Bilirubin,Total 0.4 mg/dl (0.2-1.3); Blood Urea Nitrogen 8 mg/dl (7-17); Calcium 7.6 mg/dl (8.4-10.2); Carbon Dioxide 31 mmol/L (22.0-30.0); Chloride 100 mmol/L (98-107); Creatinine Clearance Estimated 72 mL/min (50-200); Estimated Glomerular Filt Rate 102 ml/min (>60); GFR (African American) 123 ML/MIN (>60); Globulin 2.2 g/dL (1.3-3.2); Glucose 82 mg/dl (74-100); Potassium 3.7 mmoL/L (3.5-5.1); Sodium 137 mmol/L (136-145); Total Protein,Serum 4.8 g/dl (6.3-8.2)
[2022-07-31 06:20] LABS: Hemoglobin 9.5 g/dL (12.2-16.2)
--- NOTE | 2022-07-31 06:20 | EXP.SURG.PN ---
Subjective Narrative: Patient states that she feels sore . No nausea. Labs pending. Exam Data for Last 24 hours Vital signs and Labs for Last 24 Hours: Temp Pulse Resp BP Pulse Ox 98.3 F 85 14 139/56 L 92 L 07/31/22 04:00 07/31/22 06:00 07/31/22 06:00 07/31/22 06:00 07/31/22 06:00 Laboratory Results - last 24 hr 07/30/22 06:25: WBC 8.2, RBC 4.64, Hgb 14.5, Hct 45.2, MCV 97.4, MCH 31.2, MCHC 32.0, RDW 13.3, Plt Count 325, MPV 7.8, Neut % (Auto) 39.5, Lymph % (Auto) 48.6, [place] % (Auto) 6.9, Eos % (Auto) 4.0, Baso % (Auto) 1.0, Neut # (Auto) 3.3, Lymph # (Auto) 4.0, [place] # (Auto) 0.6, Eos # (Auto) 0.3, Baso # (Auto) 0.1 07/30/22 06:25: Sodium 142, Potassium 3.0 L, Chloride 97 L, Carbon Dioxide 33 H, Anion Gap 15.0, BUN 5 L, Creatinine 0.50 L, Estimated Creat Clear 75, Estimated GFR 126, Est GFR ( Amer) 152, Glucose 88, Calcium 8.9, Total Bilirubin 0.7, AST 37 H, ALT 21, Alkaline Phosphatase 102, Total Protein 7.9, Albumin 4.7, Globulin 3.2, Albumin/Globulin Ratio 1.5 07/30/22 06:28: SARS-CoV-2 (PCR) Not detected, Influenza A Untype (PCR) Not detected, Influenza Type B (PCR) Not detected 07/30/22 07:58: Urine Color Yellow, Urine Appearance Clear, Urine pH 7.5, Ur Specific [place] 1.010, Urine Protein Negative, Urine Glucose (UA) Negative, Urine Ketones Trace, Urine Blood Trace-l, Urine Nitrate Negative, Urine Bilirubin Negative, Urine Urobilinogen 1.0, Ur Leukocyte Esterase Negative, Urine RBC Occasional, Urine WBC None, Ur Squamous Epith Cells None, Urine Bacteria None 07/31/22 05:32: WBC 9.0, RBC 2.95 L D, Hgb 9.5 L D, Hct 29.0 L, MCV 98.0, MCH 32.3 H, MCHC 32.9, RDW 13.4, Plt Count 230 D, MPV 7.7, Neut % (Auto) 74.3, Lymph % (Auto) 16.6, [place] % (Auto) 8.8, Eos % (Auto) 0.1, Baso % (Auto) 0.3, Neut # (Auto) 6.7, Lymph # (Auto) 1.5, [place] # (Auto) 0.8, Eos # (Auto) 0.0, Baso # (Auto) 0.0 I & O for Last 24 hours: Intake & Output 07/28/22 07/29/22 07/30/22 07/31/22 11:59 11:59 11:59 11:59 Intake Total 1300 / 1300 2601 / 2601 Output Total 250 / 250 Balance 1300 / 1300 2351 / 2351 Weight 88 lb 101 lb 1.6 oz *Routine Abdominal Exam Abdominal: Present soft Comments: Dressing dry. Progress Note: A&P Assessment and plan (1) S/P colostomy takedown: Status: Acute Assessment and plan: DC NG tube today. Likely keep Espinosa catheter until tomorrow due to retraction on the bladder. Continue NPO. Labs pending. (2) Severe protein-calorie malnutrition: Status: Acute (3) Asthma: Status: Acute (4) Tobacco use: Status: Acute (5) Diverticulosis: Status: Acute
[2022-07-31 06:22] LABS: Magnesium 1.4 mg/dl (1.6-2.3)
--- NOTE | 2022-07-31 06:30 | PC.NURSE ---
Pt AOx4. Pt states her pain is being managed this AM and has not pressed the Morphine REGIONAL DRIVER button since clearing it at 2300. Pt has Ng tube to left nare at 68cm to cont. low wall suction. Pt continues on 1 L nc with sat in upper 90s. Attempted to wean off O2 but pt dropped to mid 80s. Pt has been NSR with frequent PVCs t/o night. Espinosa in place draining clear yellowish casandra urine, 400ml urine output total for shift. DSG to midline has a small spot of dry blood in middle, no change from beginning of shift. Call light within reach.
--- NOTE | 2022-07-31 10:08 | PC.NURSE ---
COURTESY TECH NOTE; ROUNDED ON PT, PT SLEEPING AT THIS TIME. CALL LIGHT WITHIN REACH, NO FURTHER REQUESTS AT THIS TIME. K KINGSTON, SRNA
--- NOTE | 2022-07-31 11:21 | EXP.ANES.II ---
[facility] Anesthesia Record Part II Anesthesia Record Part II Discharge Time: 13:30 Destination: Medical Surgical Department PACU nurse assessment reviewed?: Yes Patient Condition:: Good Anesthesia Complications:: None Swallowing reflex intact?: Yes Cyanosis?: No Blood Pressure: 146/78 Pulse Rate: 67 Temperature: 97.4 F Mental Status: Alert & Oriented Pain level:: 0 Nausea and/or vomitting:: None Intake, IV Amount: 0
--- NOTE | 2022-07-31 17:53 | PC.NURSE ---
Pt is resting in bed. Denies any nausea. Pt does have tenderness to abdomen. Some distention noted. DSG is C/D/I. Pt has had 3 mg of morphine per PRINCIPAL ARCHITECTURAL FIRM pump this shift. VSS. Call light within reach.
--- NOTE | 2022-07-31 19:29 | EXP.MED.FU ---
Subjective *Date: 07/31/22 *Time: 19:29 Interval history: Patient stable on room air overnight. Still having pain in her abdomen. Using CAN MARKER with fair control. NG out this morning on rounds. No nausea or vomiting. No bowel movement or gas passed however. Afebrile. Exam Data for Last 24 hours Vital signs and Labs for Last 24 Hours: Temp Pulse Resp BP Pulse Ox 98.5 F 80 16 113/67 89 L 07/31/22 15:35 07/31/22 16:00 07/31/22 12:00 07/31/22 12:00 07/31/22 15:22 Laboratory Results - last 24 hr 07/31/22 05:32: WBC 9.0, RBC 2.95 L D, Hgb 9.5 L D, Hct 29.0 L, MCV 98.0, MCH 32.3 H, MCHC 32.9, RDW 13.4, Plt Count 230 D, MPV 7.7, Neut % (Auto) 74.3, Lymph % (Auto) 16.6, [place] % (Auto) 8.8, Eos % (Auto) 0.1, Baso % (Auto) 0.3, Neut # (Auto) 6.7, Lymph # (Auto) 1.5, [place] # (Auto) 0.8, Eos # (Auto) 0.0, Baso # (Auto) 0.0 07/31/22 05:32: Sodium 137, Potassium 3.7 D, Chloride 100, Carbon Dioxide 31 H, Anion Gap 9.7, BUN 8 D, Creatinine 0.60, Estimated Creat Clear 72, Estimated GFR 102, Est GFR ( Amer) 123, Glucose 82, Calcium 7.6 L, Total Bilirubin 0.4, AST 31, ALT 13 D, Alkaline Phosphatase 63, Total Protein 4.8 L D, Albumin 2.6 L D, Globulin 2.2, Albumin/Globulin Ratio 1.2 07/31/22 05:32: Magnesium 1.4 L I & O for Last 24 hours: Intake & Output 07/28/22 07/29/22 07/30/22 07/31/22 23:59 23:59 23:59 23:59 Intake Total 2368 / 2368 3413 / 3413 Output Total 250 / 250 1450 / 1450 Balance 2117 / 2118 1962 Weight 39.916 kg 42.354 kg 45.8 kg Constitutional Constitutional: no acute distress, thin and cooperative *Routine HEENT Exam Head: Present normocephalic Eye: Present EOMI and PERRL ENT: Present mucous membranes moist *Routine Neck Exam Neck: Present supple; Absent lymphadenopathy *Routine Respiratory Exam Respiratory: Present CTA bilaterally; Absent rhonchi, wheezes or crackles *Routine Cardiovascular Exam Cardiovascular: Present RRR *Routine Abdominal Exam Abdominal: Present soft and tenderness (Diffuse, surgical bandage over left abdomen clean dry and intact); Absent normoactive bowel sounds (Hypoactive bowel sounds.) *Routine Rectal Exam Patient deferred: visual exam *Routine Exam Patient deferred: external exam *Routine Extremities Exam Extremities: Absent cyanosis, clubbing or edema *Routine Skin Exam Skin: Present warm; Absent rash *Routine Neurological Exam Neurological: Present alert, oriented X3 and moving all extremities; Absent altered mental status Assessment and Plan *Assessment and plan (1) S/P colostomy takedown: Status: Acute Category: Surgical Code(s): Z98.890 - Other specified postprocedural states (2) Severe protein-calorie malnutrition: Status: Acute Category: Medical Code(s): E43 - Unspecified severe protein-calorie malnutrition (3) Asthma: Status: Acute Category: Medical Code(s): J45.909 - Unspecified asthma, uncomplicated (4) Tobacco use: Status: Acute Category: Social Hx Code(s): Z72.0 - Tobacco use (5) Diverticulosis: Status: Acute Category: Medical Code(s): K57.90 - Diverticulosis of intestine, part unspecified, without perforation or abscess without bleeding (6) Hypomagnesemia: Status: Acute Category: Medical Code(s): E83.42 - Hypomagnesemia Plan Ms. Birch is a 62-year-old female with history of asthma and complicated diverticulitis. Status post bowel resection with colostomy August of last year. Brought back for elective takedown of colostomy. Underwent Exploratory laparotomy with takedown reversal of end colostomy with end-to-end stapled the pelvic anastomosis. Hematoma developed after procedure with subsequent evacuation and hemostasis achieved. Medicine consulted by surgery for comanagement. Patient stable this morning. NG out. Problems addressed as follows: Status post colostomy takedown Complicated diverticulosis/-itis -Success
--- NOTE | 2022-07-31 20:55 | PC.NURSE ---
She is A&Ox4. She reports pain in her abdomen is 9/10. Educated her on the use of the UNISAW OPERATOR and she verbalizes understanding. DSG on abdomen is intact with some shadowing areas marked. She continues with f/c. Urine is yellow, clear. SCDS on BLE; both removed, repositioned, and reapplied. She denies having a BM or any flatulence. Also educated her on the use of incentive spirometer and she verbalizes understanding.
[2022-08-01] VITALS (13 sets, daily range): BP systolic 114–170; BP diastolic 33–93; PULSE 70–104; RESP 10–21; TEMP 36.7–37; O2SAT 91–99; BMI 20.2
--- NOTE | 2022-08-01 01:00 | PC.NURSE ---
this RN assumed care of this pt at this time
--- NOTE | 2022-08-01 02:55 | PC.NURSE ---
pt has rested well. NSR with frequent PVC's on telemetry. O2 was removed and pt sats dropped to mid 80's while sleeping. reapplied O2 @ 2LNC and sats have maintained mid-upper 90's. dsg c/d/i. minimal use of CONCHE LOADER AND UNLOADER this shift, 5mg total. VSS. no BM or flatulance noted. pt has had no complaints. pt stable.
--- NOTE | 2022-08-01 06:54 | PC.NURSE ---
additional 4mg morphine cleared from MARINE ENGINEERING PROFESSOR this morning. total 9 mg this shift
--- NOTE | 2022-08-01 07:46 | PC.NURSE ---
fluids stopped at this time per Dr. Tracy
[2022-08-01 09:52] LABS: Basophils % 0.2 % (0.1-2.0); Eosinophils # 0.1 K/mm3 (0.0-0.4); Eosinophils % 1.6 % (0.1-12.0); Hematocrit 26.3 % (37.0-47.0); Hemoglobin 8.6 g/dL (12.2-16.2); Lymphocytes # 1.9 K/mm3 (0.7-4.5); Lymphocytes % 22.3 % (10-50); Mean Corpuscular HGB Conc 32.9 g/dL (31.8-35.4); Mean Corpuscular Hemoglobin 32.5 pg (27.0-31.2); Mean Corpuscular Volume 98.9 fl (81-99); Mean Platelet Volume 7.9 fl (7.4-10.4); Monocytes # 0.7 K/mm3 (0.1-1.0); Monocytes % 7.6 % (1.7-9.3); Neutrophils # 5.9 K/mm3 (1.8-7.8); Neutrophils % 68.2 % (37.0-80.0); Platelet Count 190 K/mm3 (142-424); Red Blood Count 2.66 M/mm3 (4.20-5.40); Red Cell Distribution Width 13.4 % (11.5-17.5); White Blood Count 8.6 K/mm3 (4.8-10.8)
--- NOTE | 2022-08-01 09:57 | EXP.MED.FU ---
Subjective *Date: 08/01/22 *Time: 11:06 Interval history: Denies chest pain, nausea, vomiting. Feeling like she might pass gas today. On 1 L nasal cannula on exam. Requiring oxygen overnight due to desats. Afebrile, hemodynamically stable. States she has not been out of bed since surgery. Exam Data for Last 24 hours Vital signs and Labs for Last 24 Hours: Temp Pulse Resp BP Pulse Ox 98.4 F 85 11 L 114/93 H 97 08/01/22 09:49 08/01/22 09:49 08/01/22 09:49 08/01/22 09:49 08/01/22 09:49 Laboratory Results - last 24 hr 08/01/22 09:42: WBC 8.6, RBC 2.66 L, Hgb 8.6 L, Hct 26.3 L, MCV 98.9, MCH 32.5 H, MCHC 32.9, RDW 13.4, Plt Count 190, MPV 7.9, Neut % (Auto) 68.2, Lymph % (Auto) 22.3, [place] % (Auto) 7.6, Eos % (Auto) 1.6, Baso % (Auto) 0.2, Neut # (Auto) 5.9, Lymph # (Auto) 1.9, [place] # (Auto) 0.7, Eos # (Auto) 0.1, Baso # (Auto) 0.0 I & O for Last 24 hours: Intake & Output 07/29/22 07/30/22 07/31/22 08/01/22 23:59 23:59 23:59 23:59 Intake Total 2368 / 2368 3413 / 3423 1233 / 1233 Output Total 250 / 250 1450 / 1450 1750 / 1750 Balance 2118 / 2118 1962 / 1972 -517 / -517 Weight 39.916 kg 42.354 kg 45.8 kg 48.534 kg Constitutional Constitutional: no acute distress, thin and cooperative *Routine HEENT Exam Head: Present normocephalic Eye: Present EOMI and PERRL ENT: Present mucous membranes moist *Routine Neck Exam Neck: Present supple; Absent lymphadenopathy *Routine Respiratory Exam Respiratory: Present CTA bilaterally; Absent rhonchi, wheezes or crackles *Routine Cardiovascular Exam Cardiovascular: Present RRR *Routine Abdominal Exam Abdominal: Present soft, normoactive bowel sounds and tenderness (Diffuse, surgical bandage over left abdomen clean dry and intact) *Routine Rectal Exam Patient deferred: visual exam *Routine Exam Patient deferred: external exam *Routine Extremities Exam Extremities: Absent cyanosis, clubbing or edema *Routine Skin Exam Skin: Present warm; Absent rash *Routine Neurological Exam Neurological: Present alert, oriented X3 and moving all extremities; Absent altered mental status Assessment and Plan *Assessment and plan (1) S/P colostomy takedown: Status: Acute Category: Surgical Code(s): Z98.890 - Other specified postprocedural states (2) Anemia: Status: Acute Qualifiers: Anemia type: other cause Category: Medical Code(s): D64.9 - Anemia, unspecified (3) Severe protein-calorie malnutrition: Status: Acute Category: Medical Code(s): E43 - Unspecified severe protein-calorie malnutrition (4) Asthma: Status: Acute Category: Medical Code(s): J45.909 - Unspecified asthma, uncomplicated (5) Tobacco use: Status: Acute Category: Social Hx Code(s): Z72.0 - Tobacco use (6) Diverticulosis: Status: Acute Category: Medical Code(s): K57.90 - Diverticulosis of intestine, part unspecified, without perforation or abscess without bleeding (7) Hypomagnesemia: Status: Acute Category: Medical Code(s): E83.42 - Hypomagnesemia Plan Ms. Birch is a 62-year-old female with history of asthma and complicated diverticulitis. Status post bowel resection with colostomy August of last year. Brought back for elective takedown of colostomy. Underwent Exploratory laparotomy with takedown reversal of end colostomy with end-to-end stapled the pelvic anastomosis. Hematoma developed after procedure with subsequent evacuation and hemostasis achieved. Medicine consulted by surgery for comanagement. Patient stable this morning. NG out. Problems addressed as follows: Status post colostomy takedown Complicated diverticulosis/-itis -Successful end-to-end anastomosis. -White cell count remains normal range, continue empiric broad-spectrum antibiotics with ertapenem. -Surgery managing. -Pain control per ETCHER HAND -PT and OT consulted, patient encouraged to get
--- NOTE | 2022-08-01 10:09 | EXP.SURG.PN ---
Subjective Narrative: Patient without significant complaints other than abdominal soreness. She denies nausea. Denies passage of flatus. Exam Data for Last 24 hours Vital signs and Labs for Last 24 Hours: Temp Pulse Resp BP Pulse Ox 98.4 F 85 11 L 114/93 H 97 08/01/22 09:49 08/01/22 09:49 08/01/22 09:49 08/01/22 09:49 08/01/22 09:49 Laboratory Results - last 24 hr 08/01/22 09:42: WBC 8.6, RBC 2.66 L, Hgb 8.6 L, Hct 26.3 L, MCV 98.9, MCH 32.5 H, MCHC 32.9, RDW 13.4, Plt Count 190, MPV 7.9, Neut % (Auto) 68.2, Lymph % (Auto) 22.3, [place] % (Auto) 7.6, Eos % (Auto) 1.6, Baso % (Auto) 0.2, Neut # (Auto) 5.9, Lymph # (Auto) 1.9, [place] # (Auto) 0.7, Eos # (Auto) 0.1, Baso # (Auto) 0.0 I & O for Last 24 hours: Intake & Output 07/29/22 07/30/22 07/31/22 08/01/22 11:59 11:59 11:59 11:59 Intake Total 1300 / 1300 2721 / 2721 2993 / 2993 Output Total 650 / 650 2800 / 2800 Balance 1300 / 1300 2071 / 2070 193 / 193 Weight 88 lb 100 lb 15.547 oz 107 lb *Routine Abdominal Exam Abdominal: Present soft and tenderness Progress Note: A&P Assessment and plan (1) S/P colostomy takedown: Status: Acute Assessment and plan: [place] out this morning. Increase activity and out of bed. Monitor hemoglobin, could require transfusion. (2) Anemia: Status: Acute (3) Severe protein-calorie malnutrition: Status: Acute (4) Asthma: Status: Acute (5) Tobacco use: Status: Acute (6) Diverticulosis: Status: Acute (7) Hypomagnesemia: Status: Acute
[2022-08-01 10:49] LABS: Alanine Aminotransferase 12 U/L (12-78); Albumin Level 2.4 g/dl (3.5-5.0); Albumin/Globulin Ratio 1.2 (1.1-1.8); Alkaline Phosphatase 65 U/L (38-126); Aspartate Amino Transferase 34 U/L (14-36); Bilirubin,Total 0.3 mg/dl (0.2-1.3); Blood Urea Nitrogen 6 mg/dl (7-17); Calcium 7.7 mg/dl (8.4-10.2); Carbon Dioxide 30 mmol/L (22.0-30.0); Chloride 95 mmol/L (98-107); Creatinine Clearance Estimated 115 mL/min (50-200); Estimated Glomerular Filt Rate 163 ml/min (>60); GFR (African American) 197 ML/MIN (>60); Glucose 74 mg/dl (74-100); Magnesium 1.8 mg/dl (1.6-2.3); Sodium 133 mmol/L (136-145); Total Protein,Serum 4.4 g/dl (6.3-8.2)
--- NOTE | 2022-08-01 12:43 | HMH.PTEV ---
Physical Therapy Evaluation Rehab PT IP Evaluation Start: 08/01/22 09:45 Freq: ONCE Status: Active Protocol: Document 08/01/22 12:38 PHORNE (Rec: 08/01/22 12:42 PHORNE [id number]) Subjective/History History History 62 yowf adm to [facility] for colostomy reversal surgery. She required a second surgery for incision washout due to hematoma also. She has hx of diverticulitis. She reports she lives with friends, 1-2 steps to enter the home, and she is generally independent with all mobility at baseline without AD. Subjective Subjective Pt reports expected pain in her abdomen S/P surgery. Rehab PT IP Eval Objective Appearance Patient Behavior Appropriate Patient Orientation Person,Place,Time Difficulty following instructions none Speech Pattern Clear Ambulation Patient Able to Ambulate Yes Ambulation Observation IP General Gait Pattern Observation Shuffling Step Ambulation Distance (feet) 3 Ambulation Assistive Device None Ambulation Ability Contact Guard/Hand Hold Balance Ability to Arise Able, uses arms to help Sitting Balance Steady, safe Standing Balance Steady, wide stance Dynamic Sitting Balance Ability Good Dynamic Standing Balance Ability Fair Transfers Bed Transfer Ability Minimal x 1 (25% assist) Chair Transfer Ability Minimal x 1 (25% assist) Sit to Stand Bed Transfer Ability Minimal x 1 (25% assist) Sit to Stand Chair Transfer Ability Minimal x 1 (25% assist) ROM All Extremities PT ROM Status WFL MMT All Extremities PT MMT WFL Rehab PT IP prob,goals,plan Problems Date of Evaluation: 08/01/22 PT IP Problems Bed Mobility,Transfers,Gait Rehab Potential Rehab Potential Good Plan PT Intervention Plan Bed Mobility,Transfers,Gait, Therapeutic Exercise PT Plan Frequency Daily Duration LOS Discharge Goals Bed Transfer Ability Contact Guard/Hand Hold Sit to Stand Chair Transfer Ability Contact Guard/Hand Hold Ambulation Assistive Device None Ambulation Distance (feet) 30 Discharge Plan PT Discharge Plan Pt is currently apporopriate to return home once medically stable for d/c. Recommend home health therapy a
--- NOTE | 2022-08-01 18:41 | PC.NURSE ---
pt up to chair some this shift, walker removed, using BSC, pain has been well controlled, 7.7 mg used from CONTRACT RECRUITER pump, dressing in place to midline incision, C/D/I
[2022-08-02] VITALS (12 sets, daily range): BP systolic 99–154; BP diastolic 54–89; PULSE 60–105; RESP 18–22; TEMP 36.4–36.8; O2SAT 91–98; BMI 17.6
--- NOTE | 2022-08-02 04:03 | PC.NURSE ---
pt has rested well this shift. pt states pain is minimal. midline incision dressing c/d/i. pt voiding per BSC with standby assist. bowel sounds active but pt states no flatulance yet. pt eating ice chips, denies nausea. no complaints voiced. VSS. NSR with PVC's on telemetry.
[2022-08-02 07:52] LABS: Alanine Aminotransferase 13 U/L (12-78); Albumin/Globulin Ratio 1.2 (1.1-1.8); Alkaline Phosphatase 72 U/L (38-126); Anion Gap 14.7 mEq/L (5-15); Aspartate Amino Transferase 34 U/L (14-36); Bilirubin,Total 0.5 mg/dl (0.2-1.3); Blood Urea Nitrogen 6 mg/dl (7-17); Calcium 7.9 mg/dl (8.4-10.2); Carbon Dioxide 31 mmol/L (22.0-30.0); Chloride 94 mmol/L (98-107); Creatinine Clearance Estimated 80 mL/min (50-200); Estimated Glomerular Filt Rate 126 ml/min (>60); GFR (African American) 152 ML/MIN (>60); Globulin 2.6 g/dL (1.3-3.2); Glucose 78 mg/dl (74-100); Potassium 3.7 mmoL/L (3.5-5.1); Sodium 136 mmol/L (136-145); Total Protein,Serum 5.6 g/dl (6.3-8.2)
--- NOTE | 2022-08-02 09:21 | PC.NURSE ---
2mg cleared from RADIATION TECHNICIAN. all ran verbal order to d/c side seam machine operator pump
--- NOTE | 2022-08-02 09:23 | P.PN_ITS ---
Subjective Narrative: Patient having some cramping but no severe pain. Off oxygen. No nausea. Not passing flatus as of yet. Exam Data for Last 24 hours Vital signs and Labs for Last 24 Hours: Temp Pulse Resp BP Pulse Ox 97.6 F 101 H 18 154/69 H 95 08/02/22 09:16 08/02/22 09:16 08/02/22 09:16 08/02/22 09:16 08/02/22 09:16 Laboratory Results - last 24 hr 08/01/22 09:42: WBC 8.6, RBC 2.66 L, Hgb 8.6 L, Hct 26.3 L, MCV 98.9, MCH 32.5 H , MCHC 32.9, RDW 13.4, Plt Count 190, MPV 7.9, Neut % (Auto) 68.2, Lymph % (Auto) 22.3, [place] % (Auto) 7.6, Eos % (Auto) 1.6, Baso % (Auto) 0.2, Neut # (Auto) 5.9, Lymph # (Auto) 1.9, [place] # (Auto) 0.7, Eos # (Auto) 0.1, Baso # (Auto) 0.0 08/01/22 09:42: Sodium 133 L, Potassium 4.0, Chloride 95 L, Carbon Dioxide 30, Anion Gap 12.0, BUN 6 L, Creatinine 0.40 L D, Estimated Creat Clear 115, Estimated GFR 163, Est GFR ( Amer) 197 D, Glucose 74, Calcium 7.7 L, Magnesium 1.8 D, Total Bilirubin 0.3, AST 34, ALT 12, Alkaline Phosphatase 65, Total Protein 4.4 L, Albumin 2.4 L, Globulin 2.0, Albumin/Globulin Ratio 1.2 08/02/22 07:09: Sodium 136, Potassium 3.7, Chloride 94 L, Carbon Dioxide 31 H, Anion Gap 14.7, BUN 6 L, Creatinine 0.50 L D, Estimated Creat Clear 80, Estimated GFR 126, Est GFR ( Amer) 152 D, Glucose 78, Calcium 7.9 L, Total Bilirubin 0.5, AST 34, ALT 13, Alkaline Phosphatase 72, Total Protein 5.6 L D, Albumin 3.0 L D, Globulin 2.6, Albumin/Globulin Ratio 1.2 I & O for Last 24 hours: Intake & Output 07/30/22 07/31/22 08/01/22 08/02/22 11:59 11:59 11:59 11:59 Intake Total 1300 / 1300 2721 / 2721 2993 / 2993 Output Total 650 / 650 2800 / 2800 1150 / 1150 Balance 1300 / 1300 2070 / 2070 193 / 193 -1150 / -1150 Weight 100 lb 15.547 oz 107 lb 93 lb 2 oz *Routine Abdominal Exam Comments: Slightly distended with incisional tenderness. 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 Hospitalist to add metoprolol. Awaiting return of bowel function. (2) Anemia: Status: Acute (3) Severe protein-calorie malnutrition: Status: Acute (4) Asthma: Status: Acute (5) Tobacco use: Status: Acute (6) Diverticulosis: Status: Acute (7) Hypomagnesemia: Status: Acute
--- NOTE | 2022-08-02 10:09 | EXP.MED.FU ---
Subjective *Date: 08/02/22 *Time: 14:02 Interval history: Stable on room air this morning. Denies any nausea or vomiting. Feels more rumbling in her belly. No flatus as of yet. No chest pain, shortness of breath, fever. Hemodynamically stable. Having more PVCs on telemetry. States this morning she has a history of mitral valve prolapse, this is new information to her care team. Exam Data for Last 24 hours Vital signs and Labs for Last 24 Hours: Temp Pulse Resp BP Pulse Ox 97.6 F 101 H 18 154/69 H 95 08/02/22 09:16 08/02/22 09:16 08/02/22 09:16 08/02/22 09:16 08/02/22 09:16 Laboratory Results - last 24 hr 08/01/22 09:42: Sodium 133 L, Potassium 4.0, Chloride 95 L, Carbon Dioxide 30, Anion Gap 12.0, BUN 6 L, Creatinine 0.40 L D, Estimated Creat Clear 115, Estimated GFR 163, Est GFR ( Amer) 197 D, Glucose 74, Calcium 7.7 L, Magnesium 1.8 D, Total Bilirubin 0.3, AST 34, ALT 12, Alkaline Phosphatase 65, Total Protein 4.4 L, Albumin 2.4 L, Globulin 2.0, Albumin/Globulin Ratio 1.2 08/02/22 07:09: Sodium 136, Potassium 3.7, Chloride 94 L, Carbon Dioxide 31 H, Anion Gap 14.7, BUN 6 L, Creatinine 0.50 L D, Estimated Creat Clear 80, Estimated GFR 126, Est GFR ( Amer) 152 D, Glucose 78, Calcium 7.9 L, Total Bilirubin 0.5, AST 34, ALT 13, Alkaline Phosphatase 72, Total Protein 5.6 L D, Albumin 3.0 L D, Globulin 2.6, Albumin/Globulin Ratio 1.2 I & O for Last 24 hours: Intake & Output 07/30/22 07/31/22 08/01/22 08/02/22 23:59 23:59 23:59 23:59 Intake Total 2368 / 2368 3413 / 3423 1233 / 1233 Output Total 250 / 250 1450 / 1450 2150 / 2450 750 / 750 Balance 8 / 2118 1962 -917 / -1217 -750 / -750 Weight 42.354 kg 45.8 kg 48.534 kg 42.241 kg Constitutional Constitutional: no acute distress, thin and cooperative *Routine HEENT Exam Head: Present normocephalic Eye: Present EOMI and PERRL ENT: Present mucous membranes moist *Routine Neck Exam Neck: Present supple; Absent lymphadenopathy *Routine Respiratory Exam Respiratory: Present CTA bilaterally; Absent rhonchi, wheezes or crackles *Routine Cardiovascular Exam Cardiovascular: Present tachycardia and irregular rhythm *Routine Abdominal Exam Abdominal: Present soft, normoactive bowel sounds and tenderness (Diffuse, surgical bandage over left abdomen clean dry and intact) *Routine Rectal Exam Patient deferred: visual exam *Routine Exam Patient deferred: external exam *Routine Extremities Exam Extremities: Absent cyanosis, clubbing or edema *Routine Skin Exam Skin: Present warm; Absent rash *Routine Neurological Exam Neurological: Present alert, oriented X3 and moving all extremities; Absent altered mental status Assessment and Plan *Assessment and plan (1) S/P colostomy takedown: Status: Acute Category: Surgical Code(s): Z98.890 - Other specified postprocedural states (2) Anemia: Status: Acute Qualifiers: Anemia type: other cause Category: Medical Code(s): D64.9 - Anemia, unspecified (3) Severe protein-calorie malnutrition: Status: Acute Category: Medical Code(s): E43 - Unspecified severe protein-calorie malnutrition (4) Asthma: Status: Acute Category: Medical Code(s): J45.909 - Unspecified asthma, uncomplicated (5) Tobacco use: Status: Acute Category: Social Hx Code(s): Z72.0 - Tobacco use (6) Diverticulosis: Status: Acute Category: Medical Code(s): K57.90 - Diverticulosis of intestine, part unspecified, without perforation or abscess without bleeding (7) Hypomagnesemia: Status: Acute Category: Medical Code(s): E83.42 - Hypomagnesemia Plan Ms. Birch is a 62-year-old female with history of asthma and complicated diverticulitis. Status post bowel resection with colostomy August of last year. Brought back for elective takedown of colostomy. Underwent Exploratory laparotomy with ta
[2022-08-02 13:14] LABS: Hematocrit 29.7 % (37.0-47.0); Hemoglobin 9.6 g/dL (12.2-16.2)
--- NOTE | 2022-08-02 17:53 | PC.NURSE ---
PAGED DR GUERRERO R/T PT PASSING FLATUS. ASKED IF PT COULD TRY SOME JELLO OR POPSISCLE. DR GUERRERO OKAY WITH SMALL AMOUNTS BUT DOES NOT WANT FULL CLD TRAY UNTIL MORE BOWEL FUNCTION RETURNS.
[2022-08-03] VITALS (22 sets, daily range): BP systolic 84–147; BP diastolic 43–91; PULSE 60–99; RESP 15–20; TEMP 36.7–37.2; O2SAT 91–98; BMI 17.6
--- NOTE | 2022-08-03 | IR_ITS ---
APPROVED REPORT Patient Location: Inpatient Ship Rigger: ROLANDO Ann RT (R) PROCEDURES Left heart catheterization Left ventriculogram Selective coronary angiogram INDICATION New onset cardiomyopathy , Multiple and new onset PVCs Informed consent was obtained prior to the procedure. COMPLICATIONS None Estimated Blood Loss: Less than 10 ml TECHNIQUE One percent lidocaine used to anesthetize the right anterior aspect of the wrist. The right radial artery was accessed via the Seldinger technique. A 6 [place] sheath was placed in the right radial artery. 150 mg magnesium sulfate, 800 mcg of nitroglycerin, 1mg Lidocaine and 5000 U Heparin were given through the arterial sheath. The papa catheter was also used to perform left heart catheterization, left ventriculogram and selective coronary angiogram. At the end of the procedure the sheath was removed good hemostasis was achieved using Traclet band, patient was transferred to the postop holding area in stable condition. ANGIOGRAPHIC RESULTS The left main artery Normal The left anterior descending artery Normal The circumflex artery Normal The right coronary artery Large dominant normal The BARKLEY ventriculogram reveals Dilated ventricle globally hypokinetic estimated ejection fraction 40% The left ventricular end-diastolic pressure 15 mmHg IMPRESSION Normal coronary arteries New onset cardiomyopathy Numerous PVCs with PVCs being the possible etiology for the cardiomyopathy PLAN 1. Low-dose beta-blockers and titrate as possible 2. Refer to electrophysiology for consideration of EP study with possible PVC ablation which may be the etiology of patient's cardiomyopathy 3. Standard therapy for systolic heart failure which should include Entresto and beta-blockers 4. Wait for official echocardiogram interpretation to make sure ejection fraction is not 35% or less. If so consider LifeVest Electronically signed by : Hal Nj MD 08/03/2022 13:45:09
--- NOTE | 2022-08-03 06:11 | EXP.SURG.PN ---
Subjective Narrative: Patient began passing gas yesterday. Given some sips of clear liquids which she is tolerating without difficulty. No nausea. Does still have some cramping and abdominal soreness. Exam Data for Last 24 hours Vital signs and Labs for Last 24 Hours: Temp Pulse Resp BP Pulse Ox 98.2 F 87 19 117/55 L 96 08/03/22 04:00 08/03/22 04:00 08/03/22 04:00 08/03/22 04:00 08/03/22 04:00 Laboratory Results - last 24 hr 08/02/22 07:09: Sodium 136, Potassium 3.7, Chloride 94 L, Carbon Dioxide 31 H, Anion Gap 14.7, BUN 6 L, Creatinine 0.50 L D, Estimated Creat Clear 80, Estimated GFR 126, Est GFR ( Amer) 152 D, Glucose 78, Calcium 7.9 L, Total Bilirubin 0.5, AST 34, ALT 13, Alkaline Phosphatase 72, Total Protein 5.6 L D, Albumin 3.0 L D, Globulin 2.6, Albumin/Globulin Ratio 1.2 08/02/22 13:00: Hgb 9.6 L, Hct 29.7 L I & O for Last 24 hours: Intake & Output 07/31/22 08/01/22 08/02/22 08/03/22 11:59 11:59 11:59 11:59 Intake Total 2721 / 2721 2993 / 2993 Output Total 650 / 650 2800 / 2800 1150 / 1150 950 / 950 Balance 2070 / 2070 193 / 193 -1150 / -1150 -950 / -950 Weight 100 lb 15.547 oz 107 lb 93 lb 2 oz 93 lb 2.007 oz *Routine Abdominal Exam Abdominal: Present soft, tenderness and surgical scars Comments: Incision clean. Progress Note: A&P Assessment and plan (1) S/P colostomy takedown: Status: Acute Assessment and plan: Labs pending. Clear liquid diet. Ambulate. (2) Anemia: Status: Acute (3) Severe protein-calorie malnutrition: Status: Acute (4) Asthma: Status: Acute (5) Tobacco use: Status: Acute (6) Diverticulosis: Status: Acute (7) Hypomagnesemia: Status: Acute
[2022-08-03 06:12] LABS: Basophils % 0.2 % (0.1-2.0); Eosinophils # 0.2 K/mm3 (0.0-0.4); Eosinophils % 2.9 % (0.1-12.0); Hematocrit 29.2 % (37.0-47.0); Hemoglobin 9.7 g/dL (12.2-16.2); Lymphocytes # 1.3 K/mm3 (0.7-4.5); Lymphocytes % 14.7 % (10-50); Mean Corpuscular HGB Conc 33.1 g/dL (31.8-35.4); Mean Corpuscular Volume 96.9 fl (81-99); Monocytes # 0.7 K/mm3 (0.1-1.0); Monocytes % 8.2 % (1.7-9.3); Neutrophils # 6.3 K/mm3 (1.8-7.8); Platelet Count 227 K/mm3 (142-424); Red Blood Count 3.01 M/mm3 (4.20-5.40); Red Cell Distribution Width 13.5 % (11.5-17.5); White Blood Count 8.5 K/mm3 (4.8-10.8)
[2022-08-03 06:15] LABS: Alanine Aminotransferase 16 U/L (12-78); Albumin Level 3.1 g/dl (3.5-5.0); Albumin/Globulin Ratio 1.1 (1.1-1.8); Alkaline Phosphatase 70 U/L (38-126); Anion Gap 13.3 mEq/L (5-15); Aspartate Amino Transferase 30 U/L (14-36); Bilirubin,Total 0.8 mg/dl (0.2-1.3); Blood Urea Nitrogen 5 mg/dl (7-17); Carbon Dioxide 27 mmol/L (22.0-30.0); Chloride 102 mmol/L (98-107); Creatinine Clearance Estimated 100 mL/min (50-200); Estimated Glomerular Filt Rate 163 ml/min (>60); GFR (African American) 197 ML/MIN (>60); Globulin 2.7 g/dL (1.3-3.2); Glucose 87 mg/dl (74-100); Potassium 3.3 mmoL/L (3.5-5.1); Sodium 139 mmol/L (136-145); Total Protein,Serum 5.8 g/dl (6.3-8.2)
[2022-08-03 06:18] LABS: Magnesium 1.7 mg/dl (1.6-2.3)
--- NOTE | 2022-08-03 06:33 | PC.NURSE ---
Addendum entered by Clara Hooker RN 08/03/22 07:05: PT HAS BEEN NSR WITH FREQUENT PVCS T/O SHIFT, SOMETIMES GOING INTO BIGEMINY. Original Note: pT HAS C/O ABDOMINAL PAIN 1X T/O SHIFT. PRN MORPHINE ADMINISTERED, NO OTHER C/O VOICED TO STAFF. PT AMBULATING ACROSS ROOM TO BSC WITH 1X ASSIST, TOLERATING WELL. MID LINE INCISION WITH MARILEE IN PLACE AND DSG TO LL ABDOMINAL CDI. CALL LIGHT WITHIN REACH.
--- NOTE | 2022-08-03 09:32 | EXP.MED.FU ---
Subjective *Date: 08/03/22 *Time: 09:32 Interval history: Patient has remained hemodynamically stable. Still having significant PVCs. Occasional episodes of bigeminy overnight. Tolerating metoprolol, but no significant rate control as of yet. Is passing gas as of this morning. Surgery is advance diet to clear liquids. Tolerating oral medication. No nausea or vomiting. Remains afebrile. Pain controlled with oral regimen this morning. Stable on room air. Exam Data for Last 24 hours Vital signs and Labs for Last 24 Hours: Temp Pulse Resp BP Pulse Ox 98.9 F 99 H 16 105/56 L 96 08/03/22 08:00 08/03/22 08:00 08/03/22 08:00 08/03/22 08:00 08/03/22 08:00 Laboratory Results - last 24 hr 08/02/22 13:00: Hgb 9.6 L, Hct 29.7 L 08/03/22 05:49: WBC 8.5, RBC 3.01 L, Hgb 9.7 L, Hct 29.2 L, MCV 96.9, MCH 32.0 H, MCHC 33.1, RDW 13.5, Plt Count 227, MPV 8.0, Neut % (Auto) 74.0, Lymph % (Auto) 14.7, [place] % (Auto) 8.2, Eos % (Auto) 2.9, Baso % (Auto) 0.2, Neut # (Auto) 6.3, Lymph # (Auto) 1.3, [place] # (Auto) 0.7, Eos # (Auto) 0.2, Baso # (Auto) 0.0 08/03/22 05:49: Magnesium 1.7 08/03/22 05:49: Sodium 139, Potassium 3.3 L, Chloride 102, Carbon Dioxide 27, Anion Gap 13.3, BUN 5 L, Creatinine 0.40 L, Estimated Creat Clear 100, Estimated GFR 163, Est GFR ( Amer) 197 D, Glucose 87, Calcium 8.0 L, Total Bilirubin 0.8, AST 30, ALT 16, Alkaline Phosphatase 70, Total Protein 5.8 L, Albumin 3.1 L, Globulin 2.7, Albumin/Globulin Ratio 1.1 I & O for Last 24 hours: Intake & Output 07/31/22 08/01/22 08/02/2222/23 23:59 23:59 23:59 23:59 Intake Total 3413 / 3423 1233 / 1233 480 / 480 Output Total 1450 / 1450 2150 / 2450 1150 / 1150 550 / 550 Balance 1962 -917 / -1217 -1150 / -1150 -70 / -70 Weight 45.8 kg 48.534 kg 42.241 kg 42.241 kg Constitutional Constitutional: no acute distress, thin and cooperative *Routine HEENT Exam Head: Present normocephalic Eye: Present EOMI and PERRL ENT: Present mucous membranes moist *Routine Neck Exam Neck: Present supple; Absent lymphadenopathy *Routine Respiratory Exam Respiratory: Present CTA bilaterally; Absent rhonchi, wheezes or crackles *Routine Cardiovascular Exam Cardiovascular: Present tachycardia and irregular rhythm *Routine Abdominal Exam Abdominal: Present soft, normoactive bowel sounds and tenderness (Diffuse, surgical bandage over left abdomen CDI) *Routine Extremities Exam Extremities: Absent cyanosis, clubbing or edema *Routine Skin Exam Skin: Present warm; Absent rash *Routine Neurological Exam Neurological: Present alert, oriented X3 and moving all extremities; Absent altered mental status Assessment and Plan *Assessment and plan (1) PVCs (premature ventricular contractions): Status: Acute Category: Medical Code(s): I49.3 - Ventricular premature depolarization (2) S/P colostomy takedown: Status: Acute Category: Surgical Code(s): Z98.890 - Other specified postprocedural states (3) Anemia: Status: Acute Qualifiers: Anemia type: other cause Category: Medical Code(s): D64.9 - Anemia, unspecified (4) Asthma: Status: Acute Category: Medical Code(s): J45.909 - Unspecified asthma, uncomplicated Plan Ms. Birch is a 62-year-old female with history of asthma and complicated diverticulitis. Status post bowel resection with colostomy August of last year. Brought back for elective takedown of colostomy. Underwent Exploratory laparotomy with takedown reversal of end colostomy with end-to-end stapled the pelvic anastomosis. Hematoma developed after procedure with subsequent evacuation and hemostasis achieved. Medicine consulted by surgery for comanagement. Patient stable this morning. Passing flatus, having frequent PVCs. Problems addressed as follows: Status post colostomy takedown Complicated diverticulosis/-itis -Successful end-to-end anastomosis. -White cell count remains
--- NOTE | 2022-08-03 09:36 | HMH.OTEV ---
OT Inpatient Evaluation Rehab OT IP Evaluation Start: 08/01/22 09:45 Freq: ONCE Status: Active Protocol: Document 08/03/22 09:30 [place] (Rec: 08/03/22 09:36 [facility] [id number]) Rehab OT IP Assessment Subjective History Pt oriented x 4 on arrival. Pt agreeable to engage in therapy evaluation. Pt was admitted on 07/30/22 following a Exploratory laparotomy with takedown reversal of end colostomy with end-to-end stapled the pelvic anastomosis . Prior to being in the hospital, pt has been living with her friend since February 2022. Pt reports she was independent with all ADLs and IADLs prior to surgery. She did not require any type of AE during ADLs or functional transfers. Pt has a past medical history of: Nasal congestion Sore throat Subjective I think I have done good today. Objective Patient Orientation Person,Place,Birthday,Year Upper Extremity Gross ROM WFL Bed Mobility bed mobility-scooting,bed mobility - supine/sit,bed mobility - rolling Assist Level Contact Guard/Hand Hold Transfer Training Sit/Stand Transfer Assist Level Contact Guard/Hand Hold Rehab OT IP prob,goals,plan Problems Date of Evaluation: 08/03/22 OT IP Problems Bed Mobility,Transfers,Balance ,Self care,Safety Rehab Potential Rehab Potential Good Equipment Needs Assistive Devices None / NA Plan OT intervention Plan Bed Mobility,Transfers,Balance ,Self care,Safety,Therapeutic Exercise OT Plan Frequency BID Duration LOS Discharge Goals Bed Mobility Ability Standby Assistance Sit to Stand Chair Transfer Ability Supervision/Stand by Chair Transfer Ability Supervision/Stand by Chair Transfer Technique Sit to/from Ambulatory Chair Transfer Assistive Devices None Self care skills fully toilet trained,uses utensils to feed self Feeding Ability
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
[2022-08-03 18:32] LABS: Troponin I < 0.01 ng/ml (0.00-0.034)
--- NOTE | 2022-08-03 18:52 | PC.NURSE ---
PT IS RESTING IN BED. ALERT AND ORIENTED X4. TOLERATING CLEAR LIQUIDS. PT STILL HAS NOT HAD A BOWEL MOVEMENT BUT IS PASSING FLATUS. ABDOMEN SOFT/NON TENDER WITH HYPOACTIVE BOWEL SOUNDS. MIDLINE INCISION OPEN TO AIR. LUNG SOUNDS CLEAR. 1 ASSIST TO GET OOB TO BSC. VSS. DRESSING TO RIGHT RADIAL CATH SITE C/D/I. WILL CONTINUE TO MONITOR.
[2022-08-04] VITALS (10 sets, daily range): BP systolic 106–146; BP diastolic 61–88; PULSE 70–86; RESP 15–26; TEMP 36.6–36.9; O2SAT 92–98; BMI 16.6
[2022-08-04 05:58] LABS: Basophils % 0.4 % (0.1-2.0); Eosinophils # 0.5 K/mm3 (0.0-0.4); Eosinophils % 6.9 % (0.1-12.0); Hematocrit 28.1 % (37.0-47.0); Hemoglobin 9.4 g/dL (12.2-16.2); Lymphocytes # 1.7 K/mm3 (0.7-4.5); Lymphocytes % 25.2 % (10-50); Mean Corpuscular HGB Conc 33.5 g/dL (31.8-35.4); Mean Corpuscular Hemoglobin 32.5 pg (27.0-31.2); Mean Corpuscular Volume 96.8 fl (81-99); Mean Platelet Volume 8.7 fl (7.4-10.4); Monocytes # 0.7 K/mm3 (0.1-1.0); Monocytes % 10.4 % (1.7-9.3); Neutrophils # 3.8 K/mm3 (1.8-7.8); Neutrophils % 57.1 % (37.0-80.0); Platelet Count 234 K/mm3 (142-424); Red Blood Count 2.91 M/mm3 (4.20-5.40); Red Cell Distribution Width 13.7 % (11.5-17.5); White Blood Count 6.6 K/mm3 (4.8-10.8)
[2022-08-04 06:02] LABS: Alanine Aminotransferase 13 U/L (12-78); Albumin Level 2.8 g/dl (3.5-5.0); Albumin/Globulin Ratio 1.1 (1.1-1.8); Alkaline Phosphatase 59 U/L (38-126); Anion Gap 14.5 mEq/L (5-15); Aspartate Amino Transferase 28 U/L (14-36); Bilirubin,Total 0.6 mg/dl (0.2-1.3); Blood Urea Nitrogen 3 mg/dl (7-17); Calcium 7.7 mg/dl (8.4-10.2); Carbon Dioxide 29 mmol/L (22.0-30.0); Chloride 99 mmol/L (98-107); Creatinine Clearance Estimated 126 mL/min (50-200); Estimated Glomerular Filt Rate 227 ml/min (>60); GFR (African American) 275 ML/MIN (>60); Globulin 2.6 g/dL (1.3-3.2); Glucose 96 mg/dl (74-100); Magnesium 1.8 mg/dl (1.6-2.3); Potassium 3.5 mmoL/L (3.5-5.1); Sodium 139 mmol/L (136-145); Total Protein,Serum 5.4 g/dl (6.3-8.2)
[2022-08-04 07:06] LABS: Alanine Aminotransferase 14 U/L (12-78); Albumin Level 2.8 g/dl (3.5-5.0); Alkaline Phosphatase 61 U/L (38-126); Aspartate Amino Transferase 27 U/L (14-36); Bilirubin,Indirect 0.6 mg/dL (0.0-0.9); Bilirubin,Total 0.6 mg/dl (0.2-1.3); Bilirubin,Unconjugated 0.8 mg/dL (0.0-1.1); Chol/HDL Ratio 3.5 (1-3.5); Cholesterol 124 mg/dl (140-200); HDL Cholesterol 35 mg/dl (40-60); Total Protein,Serum 5.5 g/dl (6.3-8.2); Triglycerides 123 mg/dl (30-150); VLDL Cholesterol 25 mg/dL (0-40)
[2022-08-04 07:17] LABS: Direct LDL Cholesterol 69.37 mg/dL (100-129)
--- NOTE | 2022-08-04 07:54 | EXP.SURG.PN ---
Subjective Narrative: Patient without significant complaints. Only had minimal clear liquids yesterday as she was placed on n.p.o. status for her heart catheterization. No nausea. She is apparently passing some gas and liquid. Exam Data for Last 24 hours Vital signs and Labs for Last 24 Hours: Temp Pulse Resp BP Pulse Ox 98.1 F 84 15 123/78 96 08/04/22 04:00 08/04/22 04:00 08/04/22 04:00 08/04/22 04:00 08/04/22 06:31 Laboratory Results - last 24 hr 08/03/22 17:47: Troponin I < 0.01 08/04/22 05:12: WBC 6.6, RBC 2.91 L, Hgb 9.4 L, Hct 28.1 L, MCV 96.8, MCH 32.5 H, MCHC 33.5, RDW 13.7, Plt Count 234, MPV 8.7, Neut % (Auto) 57.1, Lymph % (Auto) 25.2, [place] % (Auto) 10.4 H, Eos % (Auto) 6.9, Baso % (Auto) 0.4, Neut # (Auto) 3.8, Lymph # (Auto) 1.7, [place] # (Auto) 0.7, Eos # (Auto) 0.5 H, Baso # (Auto) 0.0 08/04/22 05:12: Sodium 139, Potassium 3.5, Chloride 99, Carbon Dioxide 29, Anion Gap 14.5, BUN 3 L D, Creatinine 0.30 L D, Estimated Creat Clear 126, Estimated GFR 227, Est GFR ( Amer) 275 D, Glucose 96, Calcium 7.7 L, Magnesium 1.8, Total Bilirubin 0.6, AST 28, ALT 13, Alkaline Phosphatase 59, Total Protein 5.4 L, Albumin 2.8 L, Globulin 2.6, Albumin/Globulin Ratio 1.1 08/04/22 05:12: Total Bilirubin 0.6, Direct Bilirubin 0.0, Conjugated Bilirubin 0.0, Indirect Bilirubin 0.6, Unconjugated Bilirubin 0.8, AST 27, ALT 14, Alkaline Phosphatase 61, Total Protein 5.5 L, Albumin 2.8 L, Triglycerides 123, Cholesterol 124 L, LDL Cholesterol Direct 69.37 L, VLDL Cholesterol 25, HDL Cholesterol 35 L, Cholesterol/HDL Ratio 3.5 I & O for Last 24 hours: Intake & Output 08/01/22 08/02/22 08/03/22 08/04/22 11:59 11:59 11:59 11:59 Intake Total 2993 / 2993 480 / 480 960 / 960 Output Total 2800 / 2800 1150 / 1150 950 / 1250 300 / 300 Balance 193 / 193 -1150 / -1150 -470 / -770 660 / 660 Weight 107 lb 93 lb 2 oz 93 lb 2.007 oz 88 lb *Routine Abdominal Exam Abdominal: Present soft Comments: Incision clean dry and intact. Progress Note: A&P Assessment and plan (1) S/P colostomy takedown: Status: Acute Assessment and plan: Full liquid diet. (2) Anemia: Status: Acute (3) Severe protein-calorie malnutrition: Status: Acute (4) Asthma: Status: Acute (5) Tobacco use: Status: Acute (6) Diverticulosis: Status: Acute (7) Hypomagnesemia: Status: Acute
--- NOTE | 2022-08-04 08:29 | EXP.PN ---
Subjective *Date: 08/04/22 *Time: 11:40 Interval history: No acute events overnight. Her diet was advanced to a full liquid diet. She hasn't had a bowel movement but is passing gas. She denies pain while at rest. Exam Data for Last 24 hours Vital signs and Labs for Last 24 Hours: Temp Pulse Resp BP Pulse Ox 98.2 F 86 21 145/77 H 94 L 08/04/22 08:00 08/04/22 08:00 08/04/22 08:00 08/04/22 08:00 08/04/22 08:00 Laboratory Results - last 24 hr 08/03/22 17:47: Troponin I < 0.01 08/04/22 05:12: WBC 6.6, RBC 2.91 L, Hgb 9.4 L, Hct 28.1 L, MCV 96.8, MCH 32.5 H, MCHC 33.5, RDW 13.7, Plt Count 234, MPV 8.7, Neut % (Auto) 57.1, Lymph % (Auto) 25.2, [place] % (Auto) 10.4 H, Eos % (Auto) 6.9, Baso % (Auto) 0.4, Neut # (Auto) 3.8, Lymph # (Auto) 1.7, [place] # (Auto) 0.7, Eos # (Auto) 0.5 H, Baso # (Auto) 0.0 08/04/22 05:12: Sodium 139, Potassium 3.5, Chloride 99, Carbon Dioxide 29, Anion Gap 14.5, BUN 3 L D, Creatinine 0.30 L D, Estimated Creat Clear 126, Estimated GFR 227, Est GFR ( Amer) 275 D, Glucose 96, Calcium 7.7 L, Magnesium 1.8, Total Bilirubin 0.6, AST 28, ALT 13, Alkaline Phosphatase 59, Total Protein 5.4 L, Albumin 2.8 L, Globulin 2.6, Albumin/Globulin Ratio 1.1 08/04/22 05:12: Total Bilirubin 0.6, Direct Bilirubin 0.0, Conjugated Bilirubin 0.0, Indirect Bilirubin 0.6, Unconjugated Bilirubin 0.8, AST 27, ALT 14, Alkaline Phosphatase 61, Total Protein 5.5 L, Albumin 2.8 L, Triglycerides 123, Cholesterol 124 L, LDL Cholesterol Direct 69.37 L, VLDL Cholesterol 25, HDL Cholesterol 35 L, Cholesterol/HDL Ratio 3.5 I & O for Last 24 hours: Intake & Output 08/01/22 08/02/22 08/03/22 08/04/22 23:59 23:59 23:59 23:59 Intake Total 1233 / 1233 1380 / 1440 60 / 60 Output Total 2150 / 2450 1150 / 1150 850 / 850 0 / 0 Balance -917 / -1217 -1150 / -1150 530 / 590 60 / 60 Weight 48.534 kg 42.241 kg 42.241 kg 39.916 kg Constitutional Constitutional: no acute distress *Routine HEENT Exam Head: Present normocephalic Eye: Present EOMI and PERRL ENT: Present mucous membranes moist *Routine Neck Exam Neck: Present supple; Absent lymphadenopathy *Routine Respiratory Exam Respiratory: Present CTA bilaterally *Routine Cardiovascular Exam Cardiovascular: Present RRR *Routine Abdominal Exam Abdominal: Present soft and normoactive bowel sounds; Absent tenderness *Routine Extremities Exam Extremities: Absent cyanosis, clubbing or edema *Routine Skin Exam Skin: Present warm; Absent rash Comments: Surgical incisions x 2 with stitches and without surrounding erythema or active drainage. *Routine Neurological Exam Neurological: Present alert and oriented X3 Assessment and Plan *Assessment and plan (1) Cardiomyopathy: Status: Acute Qualifiers: Cardiomyopathy type: unspecified Qualified Code(s): I42.9 - Cardiomyopathy, unspecified Category: Medical Code(s): I42.9 - Cardiomyopathy, unspecified (2) PVCs (premature ventricular contractions): Status: Acute Category: Medical Code(s): I49.3 - Ventricular premature depolarization (3) Anemia: Status: Acute Qualifiers: Anemia type: other cause Category: Medical Code(s): D64.9 - Anemia, unspecified (4) Tobacco use: Status: Acute Category: Social Hx Code(s): Z72.0 - Tobacco use (5) Anxiety: Status: Acute Category: Medical Code(s): F41.9 - Anxiety disorder, unspecified (6) S/P colostomy takedown: Status: Acute Category: Surgical Code(s): Z98.890 - Other specified postprocedural states Plan Sirena Birch is a 62 year old female with a past medical history of asthma, mitral valve prolapse and complicated diverticulitis status post bowel resection with colostomy in August 2021. She had an elective takedown of her colostomy. Hematoma developed after the procedure and she subsequently had evacuation of the hematoma and hemostasis was achieved. We were
--- NOTE | 2022-08-04 09:28 | EXP.CARD.PN ---
Subjective Subjective Date: 08/04/22 Time: 09:29 Principal diagnosis: PVCs, CM Interval history: This is a 62-year-old white female who was admitted to the hospital following a colostomy takedown and reversal. The patient was having a significant amount of PVCs as well as ventricular bigeminy so cardiology was consulted. She has been started on metoprolol and is tolerating this well. The patient did have new onset cardiomyopathy on echocardiogram yesterday. She underwent left cardiac catheterization which showed normal coronary arteries. The patient was started on low-dose beta-blockers and Entresto secondary to her new onset cardiomyopathy. 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 This morning she denies any chest pain or pressure. She still has some shortness of breath with exertion but she states that this is improving. She denies any lower extremity edema. She denies any fever, chills, nausea, vomiting, diarrhea, PND or orthopnea. Exam Data for Last 24 hours Vital signs and Labs for Last 24 Hours: Temp Pulse Resp BP Pulse Ox 98.2 F 86 21 145/77 H 94 L 08/04/22 08:00 08/04/22 08:00 08/04/22 08:00 08/04/22 08:00 08/04/22 08:00 Laboratory Results - last 24 hr 08/03/22 17:47: Troponin I < 0.01 08/04/22 05:12: WBC 6.6, RBC 2.91 L, Hgb 9.4 L, Hct 28.1 L, MCV 96.8, MCH 32.5 H, MCHC 33.5, RDW 13.7, Plt Count 234, MPV 8.7, Neut % (Auto) 57.1, Lymph % (Auto) 25.2, [place] % (Auto) 10.4 H, Eos % (Auto) 6.9, Baso % (Auto) 0.4, Neut # (Auto) 3.8, Lymph # (Auto) 1.7, [place] # (Auto) 0.7, Eos # (Auto) 0.5 H, Baso # (Auto) 0.0 08/04/22 05:12: Sodium 139, Potassium 3.5, Chloride 99, Carbon Dioxide 29, Anion Gap 14.5, BUN 3 L D, Creatinine 0.30 L D, Estimated Creat Clear 126, Estimated GFR 227, Est GFR ( Amer) 275 D, Glucose 96, Calcium 7.7 L, Magnesium 1.8, Total Bilirubin 0.6, AST 28, ALT 13, Alkaline Phosphatase 59, Total Protein 5.4 L, Albumin 2.8 L, Globulin 2.6, Albumin/Globulin Ratio 1.1 08/04/22 05:12: Total Bilirubin 0.6, Direct Bilirubin 0.0, Conjugated Bilirubin 0.0, Indirect Bilirubin 0.6, Unconjugated Bilirubin 0.8, AST 27, ALT 14, Alkaline Phosphatase 61, Total Protein 5.5 L, Albumin 2.8 L, Triglycerides 123, Cholesterol 124 L, LDL Cholesterol Direct 69.37 L, VLDL Cholesterol 25, HDL Cholesterol 35 L, Cholesterol/HDL Ratio 3.5 I & O for Last 24 hours: Intake & Output 08/01/22 08/02/22 08/03/22 08/04/22 23:59 23:59 23:59 23:59 Intake Total 1233 / 1233 1380 / 1440 60 / 60 Output Total 2150 / 2450 1150 / 1150 850 / 850 0 / 0 Balance -917 / -1217 -1150 / -1150 530 / 590 60 / 60 Weight 107 lb 93 lb 2 oz 93 lb 2.007 oz 88 lb Constitutional Constitutional: no acute distress and average body habitus *Routine HEENT Exam Head: Present normocephalic and atraumatic ENT: Present mucous membranes moist *Routine Neck Exam Neck: Present supple, full ROM and normal carotid upstroke; Absent JVD, carotid bruit or lymphadenopathy *Routine Respiratory Exam Respiratory: Present CTA bilaterally, normal respiratory effort, able to speak in complete sentences and symmetric chest movement *Routine Cardiovascular Exam Cardiovascular: Present RRR, Normal S1 and Normal S2; Absent murmur or gallop *Routine Abdominal Exam Abdominal: Present soft and normoactive bowel sounds; Absent tenderness, distended or organomegaly *Routine Extremities Exam Extremities: Present full ROM, pulses intact and normal capillary refill; Absent cyanosis, clubbing or edema *Routine Skin Exam Skin: Present intact and warm; Absent erythema *Routine Neurological Exam Neurological: Present alert, oriented X3 and CN II-XII intact; Absent sensory deficit or motor deficit Routine Psychiatric Exam Psychiatric: Present normal affect Progress Note: A&P Assessment and plan (1) Cardiomyopathy: Status: Acute (2) PVCs (premature ventricular contraction
--- NOTE | 2022-08-04 09:31 | PC.NURSE ---
pt states she has small amounts of liquid passing from rectum when passing flatus. liquid smears noted to chux when pt assisted up to bsc to void. surgeon aware of small amounts of liquid being passed.
--- NOTE | 2022-08-04 14:15 | DIET.NUTRFU ---
Saw patient today after lunch, she is tolerating full liquids, she had soup, pudding and juice. She has had some gas and some leakage but no formed BM. She did receive and drink the boost juice yesterday and again today, she enjoyed it. This will provide her with extra calories and protein. Tonight she has chocolate ensure ordered. Her goal is to gain wt, provided her with high calorie/hiugh protein handouts and milkshakes recipes.
--- NOTE | 2022-08-04 15:38 | PC.NURSE ---
Paged Dr Mayes at 1530 r/t pt requesting medication for pain, other than morphine. 1535 Dr Mayes returned call, change morphine to morphine 1mg iv q4hp breakthrough pain, start lortab 5/325mg 1 tab po q4hp mod - severe pain.
--- NOTE | 2022-08-04 17:46 | PC.NURSE ---
Pt has appeared to have a good day. she has been up to the chair for the majority of the shift. 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 pt lungs are clear throughout. bowel sounds are active. pt is voiding per bsc and commode. pt is passing liquid stool via rectum, periods of incontinence with stool reported per the pt. nad noted. pt states that the lortab prescribed helped with her pain and she was able to take a short nap. pt tolerating full liquid diet well.
[2022-08-05] VITALS: BP 129/72; PULSE 77; RESP 20
[2022-08-05 04:00] VITALS: BP 101/57; PULSE 69; PULSE 70; RESP 16; TEMP 36.6; O2SAT 98; BMI 15.2
[2022-08-05 06:28] LABS: Alanine Aminotransferase 15 U/L (12-78); Albumin/Globulin Ratio 1.2 (1.1-1.8); Alkaline Phosphatase 55 U/L (38-126); Anion Gap 10.7 mEq/L (5-15); Aspartate Amino Transferase 24 U/L (14-36); Bilirubin,Total 0.5 mg/dl (0.2-1.3); Blood Urea Nitrogen 7 mg/dl (7-17); Calcium 8.4 mg/dl (8.4-10.2); Carbon Dioxide 34 mmol/L (22.0-30.0); Chloride 98 mmol/L (98-107); Creatinine Clearance Estimated 86 mL/min (50-200); Estimated Glomerular Filt Rate 163 ml/min (>60); GFR (African American) 197 ML/MIN (>60); Globulin 2.5 g/dL (1.3-3.2); Glucose 110 mg/dl (74-100); Magnesium 1.8 mg/dl (1.6-2.3); Potassium 3.7 mmoL/L (3.5-5.1); Sodium 139 mmol/L (136-145); Total Protein,Serum 5.5 g/dl (6.3-8.2)
[2022-08-05 06:44] LABS: Basophils % 0.2 % (0.1-2.0); Eosinophils # 0.5 K/mm3 (0.0-0.4); Eosinophils % 7.2 % (0.1-12.0); Hematocrit 29.3 % (37.0-47.0); Hemoglobin 9.7 g/dL (12.2-16.2); Mean Corpuscular HGB Conc 33.2 g/dL (31.8-35.4); Mean Corpuscular Hemoglobin 32.3 pg (27.0-31.2); Mean Corpuscular Volume 97.5 fl (81-99); Mean Platelet Volume 8.5 fl (7.4-10.4); Monocytes # 0.5 K/mm3 (0.1-1.0); Monocytes % 8.1 % (1.7-9.3); Neutrophils # 3.2 K/mm3 (1.8-7.8); Neutrophils % 52.4 % (37.0-80.0); Platelet Count 252 K/mm3 (142-424); Red Blood Count 3.01 M/mm3 (4.20-5.40); Red Cell Distribution Width 13.6 % (11.5-17.5); White Blood Count 6.2 K/mm3 (4.8-10.8)
[2022-08-05 07:39] VITALS: BP 100/63; PULSE 68; RESP 18; TEMP 36.6; O2SAT 97
--- NOTE | 2022-08-05 07:47 | EXP.SURG.PN ---
Subjective Patient reports: no new complaints, feels better and flatus Narrative: She states that she had a small accident (bowel movement) a bit earlier...but it wasn't enough to count . Exam Data for Last 24 hours Vital signs and Labs for Last 24 Hours: Temp Pulse Resp BP Pulse Ox 97.9 F 68 18 100/63 L 97 08/05/22 07:39 08/05/22 07:39 08/05/22 07:39 08/05/22 07:39 08/05/22 07:39 Laboratory Results - last 24 hr 08/05/22 05:35: WBC 6.2, RBC 3.01 L, Hgb 9.7 L, Hct 29.3 L, MCV 97.5, MCH 32.3 H, MCHC 33.2, RDW 13.6, Plt Count 252, MPV 8.5, Neut % (Auto) 52.4, Lymph % (Auto) 32.0, [place] % (Auto) 8.1, Eos % (Auto) 7.2, Baso % (Auto) 0.2, Neut # (Auto) 3.2, Lymph # (Auto) 2.0, [place] # (Auto) 0.5, Eos # (Auto) 0.5 H, Baso # (Auto) 0.0 08/05/22 05:35: Sodium 139, Potassium 3.7, Chloride 98, Carbon Dioxide 34 H, Anion Gap 10.7, BUN 7 D, Creatinine 0.40 L D, Estimated Creat Clear 86, Estimated GFR 163, Est GFR ( Amer) 197 D, Glucose 110 H, Calcium 8.4, Magnesium 1.8, Total Bilirubin 0.5, AST 24, ALT 15, Alkaline Phosphatase 55, Total Protein 5.5 L, Albumin 3.0 L, Globulin 2.5, Albumin/Globulin Ratio 1.2 I & O for Last 24 hours: Intake & Output 08/02/22 08/03/22 08/04/22 08/05/22 11:59 11:59 11:59 11:59 Intake Total 480 / 480 960 / 960 1120 / 1120 Output Total 1150 / 1150 950 / 1250 400 / 750 1150 / 1150 Balance -1150 / -1150 -470 / -770 560 / 210 -30 / -30 Weight 93 lb 2 oz 93 lb 2.007 oz 88 lb 80 lb 8 oz Constitutional Constitutional: no acute distress *Routine Respiratory Exam Respiratory: Absent respiratory distress *Routine Cardiovascular Exam Cardiovascular: Absent tachycardia *Routine Abdominal Exam Abdominal: Present soft Comments: incisions healing without sign of infection Progress Note: A&P Assessment and plan (1) S/P colostomy takedown: Status: Acute Assessment and plan: bowel function returning...ambulating likely d/c home later today with close outpatient follow-up (2) Cardiomyopathy: Status: Acute (3) PVCs (premature ventricular contractions): Status: Acute (4) Anemia: Status: Acute (5) Tobacco use: Status: Acute (6) Anxiety: Status: Acute
[2022-08-05 08:00] VITALS: PULSE 70
--- NOTE | 2022-08-05 08:01 | EXP.PN ---
Subjective *Date: 08/05/22 *Time: 09:53 Interval history: Yesterday Cardiology increased the patient's metoprolol to 50mg BID and started Entresto The patient denies any pain or shortness of breath. She had a small bowel movement yesterday. Exam Data for Last 24 hours Vital signs and Labs for Last 24 Hours: Temp Pulse Resp BP Pulse Ox 97.9 F 68 18 100/63 L 97 08/05/22 07:39 08/05/22 07:39 08/05/22 07:39 08/05/22 07:39 08/05/22 07:39 Laboratory Results - last 24 hr 08/05/22 05:35: WBC 6.2, RBC 3.01 L, Hgb 9.7 L, Hct 29.3 L, MCV 97.5, MCH 32.3 H, MCHC 33.2, RDW 13.6, Plt Count 252, MPV 8.5, Neut % (Auto) 52.4, Lymph % (Auto) 32.0, [place] % (Auto) 8.1, Eos % (Auto) 7.2, Baso % (Auto) 0.2, Neut # (Auto) 3.2, Lymph # (Auto) 2.0, [place] # (Auto) 0.5, Eos # (Auto) 0.5 H, Baso # (Auto) 0.0 08/05/22 05:35: Sodium 139, Potassium 3.7, Chloride 98, Carbon Dioxide 34 H, Anion Gap 10.7, BUN 7 D, Creatinine 0.40 L D, Estimated Creat Clear 86, Estimated GFR 163, Est GFR ( Amer) 197 D, Glucose 110 H, Calcium 8.4, Magnesium 1.8, Total Bilirubin 0.5, AST 24, ALT 15, Alkaline Phosphatase 55, Total Protein 5.5 L, Albumin 3.0 L, Globulin 2.5, Albumin/Globulin Ratio 1.2 Temp Pulse Resp BP Pulse Ox 97.9 F 68 18 100/63 L 97 08/05/22 07:39 08/05/22 07:39 08/05/22 07:39 08/05/22 07:39 08/05/22 07:39 Laboratory Results - last 24 hr 08/05/22 05:35: WBC 6.2, RBC 3.01 L, Hgb 9.7 L, Hct 29.3 L, MCV 97.5, MCH 32.3 H, MCHC 33.2, RDW 13.6, Plt Count 252, MPV 8.5, Neut % (Auto) 52.4, Lymph % (Auto) 32.0, [place] % (Auto) 8.1, Eos % (Auto) 7.2, Baso % (Auto) 0.2, Neut # (Auto) 3.2, Lymph # (Auto) 2.0, [place] # (Auto) 0.5, Eos # (Auto) 0.5 H, Baso # (Auto) 0.0 08/05/22 05:35: Sodium 139, Potassium 3.7, Chloride 98, Carbon Dioxide 34 H, Anion Gap 10.7, BUN 7 D, Creatinine 0.40 L D, Estimated Creat Clear 86, Estimated GFR 163, Est GFR ( Amer) 197 D, Glucose 110 H, Calcium 8.4, Magnesium 1.8, Total Bilirubin 0.5, AST 24, ALT 15, Alkaline Phosphatase 55, Total Protein 5.5 L, Albumin 3.0 L, Globulin 2.5, Albumin/Globulin Ratio 1.2 I & O for Last 24 hours: Intake & Output 08/02/22 08/03/22 08/04/22 08/05/22 23:59 23:59 23:59 23:59 Intake Total 1380 / 1440 780 / 940 400 / 400 Output Total 1150 / 1150 850 / 850 1150 / 1250 100 / 100 Balance -1150 / -1150 530 / 590 -370 / -310 300 / 300 Weight 42.241 kg 42.241 kg 39.916 kg 36.514 kg Intake & Output 08/02/22 08/03/22 08/04/22 08/05/22 11:59 11:59 11:59 11:59 Intake Total 480 / 480 960 / 960 1120 / 1120 Output Total 1150 / 1150 950 / 1250 400 / 750 1150 / 1150 Balance -1150 / -1150 -470 / -770 560 / 210 -30 / -30 Weight 93 lb 2 oz 93 lb 2.007 oz 88 lb 80 lb 8 oz Constitutional Constitutional: no acute distress *Routine Respiratory Exam Respiratory: Absent respiratory distress *Routine Cardiovascular Exam Cardiovascular: Absent tachycardia *Routine Abdominal Exam Abdominal: Present soft Comments: incisions healing without sign of infection Assessment and Plan *Assessment and plan (1) Cardiomyopathy: Status: Acute Qualifiers: Cardiomyopathy type: unspecified Qualified Code(s): I42.9 - Cardiomyopathy, unspecified Category: Medical Code(s): I42.9 - Cardiomyopathy, unspecified (2) PVCs (premature ventricular contractions): Status: Acute Category: Medical Code(s): I49.3 - Ventricular premature depolarization (3) Anemia: Status: Acute Qualifiers: Anemia type: other cause Category: Medical Code(s): D64.9 - Anemia, unspecified (4) Tobacco use: Status: Acute Category: Social Hx Code(s): Z72.0 - Tobacco use (5) Anxiety: Status: Acute Category: Medical Code(s): F41.9 - Anxiety disorder, unspecified (6) S/P colostomy takedown: Status: Acute Category: Surgical Code(s): Z98.890 - Other specified postprocedural states Plan
--- NOTE | 2022-08-05 10:02 | EXP.CARD.PN ---
Subjective Subjective Date: 08/05/22 Time: 09:30 Principal diagnosis: PVCs, CM Interval history: This is a 62-year-old female who was admitted to the hospital following a colostomy takedown and reversal. The patient had a significant amount of PVCs and ventricular bigeminy. The patient was started on metoprolol and did tolerate that well. She had new onset cardiomyopathy and underwent left cardiac catheterization which showed normal coronary arteries. The patient has been started on metoprolol and Entresto for her cardiomyopathy. [facility] officially read her echocardiogram with an ejection fraction of 50 to 55% but Dr. Nj also reviewed this echocardiogram and her EF is around 40%. She does not have any ejection fraction of 50 to 55%. 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 This morning she denies any chest pain or pressure. She denies any shortness of breath or edema. She denies any fever, chills, nausea, vomiting, diarrhea, PND or orthopnea. Exam Data for Last 24 hours Vital signs and Labs for Last 24 Hours: Temp Pulse Resp BP Pulse Ox 97.9 F 70 18 100/63 L 97 08/05/22 07:39 08/05/22 08:00 08/05/22 07:39 08/05/22 07:39 08/05/22 07:39 Laboratory Results - last 24 hr 08/05/22 05:35: WBC 6.2, RBC 3.01 L, Hgb 9.7 L, Hct 29.3 L, MCV 97.5, MCH 32.3 H, MCHC 33.2, RDW 13.6, Plt Count 252, MPV 8.5, Neut % (Auto) 52.4, Lymph % (Auto) 32.0, [place] % (Auto) 8.1, Eos % (Auto) 7.2, Baso % (Auto) 0.2, Neut # (Auto) 3.2, Lymph # (Auto) 2.0, [place] # (Auto) 0.5, Eos # (Auto) 0.5 H, Baso # (Auto) 0.0 08/05/22 05:35: Sodium 139, Potassium 3.7, Chloride 98, Carbon Dioxide 34 H, Anion Gap 10.7, BUN 7 D, Creatinine 0.40 L D, Estimated Creat Clear 86, Estimated GFR 163, Est GFR ( Amer) 197 D, Glucose 110 H, Calcium 8.4, Magnesium 1.8, Total Bilirubin 0.5, AST 24, ALT 15, Alkaline Phosphatase 55, Total Protein 5.5 L, Albumin 3.0 L, Globulin 2.5, Albumin/Globulin Ratio 1.2 I & O for Last 24 hours: Intake & Output 08/02/22 08/03/22 08/04/22 08/05/22 23:59 23:59 23:59 23:59 Intake Total 1380 / 1440 780 / 940 400 / 400 Output Total 1150 / 1150 850 / 850 1150 / 1250 100 / 100 Balance -1150 / -1150 530 / 590 -370 / -310 300 / 300 Weight 93 lb 2 oz 93 lb 2.007 oz 88 lb 80 lb 8 oz Narrative: Telemetry strip is sinus rhythm with a rate of 74 bpm. Constitutional Constitutional: no acute distress and average body habitus *Routine HEENT Exam Head: Present normocephalic and atraumatic ENT: Present mucous membranes moist *Routine Neck Exam Neck: Present supple, full ROM and normal carotid upstroke; Absent JVD, carotid bruit or lymphadenopathy *Routine Respiratory Exam Respiratory: Present CTA bilaterally, normal respiratory effort, able to speak in complete sentences and symmetric chest movement *Routine Cardiovascular Exam Cardiovascular: Present RRR, Normal S1 and Normal S2; Absent murmur or gallop *Routine Abdominal Exam Abdominal: Present soft and normoactive bowel sounds; Absent tenderness, distended or organomegaly *Routine Extremities Exam Extremities: Present full ROM, pulses intact and normal capillary refill; Absent cyanosis, clubbing or edema *Routine Skin Exam Skin: Present intact and warm; Absent erythema *Routine Neurological Exam Neurological: Present alert, oriented X3 and CN II-XII intact; Absent sensory deficit or motor deficit Routine Psychiatric Exam Psychiatric: Present normal affect Progress Note: A&P Assessment and plan (1) Cardiomyopathy: Status: Acute (2) PVCs (premature ventricular contractions): Status: Acute (3) Anemia: Status: Acute (4) Tobacco use: Status: Acute (5) Anxiety: Status: Acute (6) S/P colostomy takedown: Status: Acute (7) Severe protein-calorie malnutrition: Status: Acute Assessment and Plan Assessment and
--- NOTE | 2022-08-05 10:40 | HMH.PHAINT1 ---
Pharmacy Intervention Comments: Discharge medication counseling completed. Patient was starting the following medications: -hydrocodone/APAP: told her to take every 6 hours as needed for pain. Told of possible side effects of constipation or nausea. Encouraged her to take with food if stomach upset occurred. -Entresto and metoprolol: Patient claimed she has had no problems since starting them both here inpatient but I encouraged her to watch for signs of low blood pressure or heart rate (dizziness, weakness, fatigue) Patient verbalized understanding and had no questions.
[2022-08-06 22:07] LABS: Vitamin B1 75.7 nmol/L (66.5-200.0)
--- NOTE | 2022-08-07 14:49 | CARE MANAGER ---
Attempted to contact patient related to hospital discharge x2. No VM option
--- NOTE | 2022-08-13 11:21 | EXP.DC.SUM ---
General Admission date:: 07/30/22 Discharge date: 08/05/22 HPI HPI HPI: Patient presented for elective colostomy takedown and reversal on 07/30/22 with planned admission.? She is a 62-year-old female.? She had undergone emergent Nunes's procedure for complicated diverticulitis with obstruction on 09/11/2021.? ?At that time she had a significant inflammatory mass at the rectosigmoid region with small abscess within the colon wall with a mass adherent to surrounding pelvic structures including appendix and right ovary.? At the time there was concern that this was a neoplasm.? Pathology revealed marked diverticulosis and diverticulitis with attached fallopian tube and appendix.? She has been doing well.? She had contacted the office recently regarding being seen for some irritation with a knot suture in her incision.? Of note, the patient did undergo colonoscopy in March 2020 which revealed no polyps but merely diverticulosis.? In anticipation of colostomy takedown I ordered a CT scan to evaluate.? I do not feel that she necessarily needs a colonoscopy as she had one within [address].? CT scan reveals questionably thickened bowel in the posterior left hemipelvis.? A repeat CT scan with rectal contrast may be of value to better clarify.? Large gallstone in the gallbladder. ? I performed flexible sigmoidoscopy.? This was unremarkable and defunctionalized rectosigmoid colon was clear. Hospital Course Hospital Course Hospital Course: Patient was taken to the operating room on 07/30/2022 at which time she underwent exploratory laparotomy with takedown and reversal of end colostomy with end-to-end stapled pelvic anastomosis. Please see operative dictation for complete details. She was admitted postoperatively. She did have a Espinosa catheter and nasogastric tube placed intraoperatively. Of note, in the immediate postoperative phase she had significant sanguinous drainage saturating her dressing in the PACU. She was examined in the PACU and had a very large hematoma at the old colostomy site. She was taken back to the operating room and underwent reopening of this surgical site with evacuation of large hematoma and washout with reclosure. She did have achievement of hemostasis with cautery. She was admitted postoperatively to stepdown unit. Hospitalist service was consulted for her medical care. Her nasogastric tube was removed on postoperative day #1 but she remained on an n.p.o. status. Due to intraoperative retraction on the bladder her Espinosa catheter remained. She did have some oxygen requirements postoperatively. She was given albuterol as needed. Patient had been having some asymptomatic ventricular PVCs with ventricular bigeminy and cardiology was consulted by the hospitalist service. Patient did admit to a history of mitral valve prolapse which had not been previously reported. Cardiology had performed echocardiogram and ultimately heart catheterization. Patient did undergo physical therapy evaluation and her activity was increased. She did show some postoperative anemia with decreased hemoglobin as expected given the degree of her initial surgery and return to the operating room with evacuation of hematoma from the colostomy site. She never required transfusion. On postoperative day #3 she began passing some gas. She was given a clear liquid diet. She was advanced to a full liquid diet after cardiology had performed heart catheterization. She tolerated this and showed some return of bowel function. She continued to convalesce and was able to be discharged on 08/05/2022. She did have half of her remigio removed with prior to discharge. Exam Data for Last 24 hours Vital signs and Labs for Last 24 Hours: Temp Pulse Resp BP Pulse Ox 97.9 F 70 18 100/63 L 97 08/05/22 07:39 08/05/22 08:00 08/05/22 07:39 08/05/22 07:39 08/05/22 07:39 DS: Diagnosis Discharge Diagnosis (1) Cardiomyopathy: Status: Deleted Code(s): I4
== END 2022-08-05 14:49 | disposition home or self-care (01) | DRG 329 ==
LOC: 2ND 14:34
PROVIDERS: Internal Medicine; Internal Medicine Adolescent Medicine; Nurse Practitioner Family; Admitting Provider Surgery; PCP Emergency Medicine; Visit Provider Surgery
PROC: 0DBN0ZZ Excision of Sigmoid Colon, Open Approach (ICD-10-PCS; CPT 44620; principal; 2022-07-30 07:30)
PROC: 4A023N7 Measurement of Cardiac Sampling and Pressure, Left Heart, Percutaneous Approach (ICD-10-PCS; principal; 2022-08-03 12:45)
DX: Z43.3 Encounter for attention to colostomy (principal); E43 Unspecified severe protein-calorie malnutrition; Z68.1 Body mass index [BMI] 19.9 or less, adult; I42.9 Cardiomyopathy, unspecified; I50.20 Unspecified systolic (congestive) heart failure; M19.90 Unspecified osteoarthritis, unspecified site; M54.10 Radiculopathy, site unspecified; F41.9 Anxiety disorder, unspecified; G89.29 Other chronic pain; J43.9 Emphysema, unspecified; F17.210 Nicotine dependence, cigarettes, uncomplicated; J45.909 Unspecified asthma, uncomplicated; E83.42 Hypomagnesemia; D50.0 Iron deficiency anemia secondary to blood loss (chronic); I34.1 Nonrheumatic mitral (valve) prolapse; I49.3 Ventricular premature depolarization
CPT/HCPCS: 44626; 49002; 36415; 80053; 80061; 80076; 81001; 83735; 84425; 84484; 85014; 85018; 85025; 87636; 93306; 93308; 93458; 94640; 96374; 97110; 97116; 97162; 97166; 97530; 99152; C1725; C1769; C9290; C9803; J1335; J1644; J2405; J3475; Q9967; U0003; U0005

== ENCOUNTER → 2023-01-22 12:00 | Outpatient (CLI) | payer OTHER, SELFPAY ==
[2023-01-22 20:44] LABS: Phencyclidine Screen,Urine Negative ng/ml (<25)
[2023-01-22 20:50] LABS: Amphetamine/Metha Screen,Urine Negative ng/ml (<1000)
[2023-01-22 20:51] LABS: Barbiturates Screen,Urine Negative ng/ml (<200)
[2023-01-22 20:52] LABS: Cannabinoid Screen,Urine Positive ng/ml (<50)
[2023-01-22 20:55] LABS: Cocaine Screen,Urine Negative ng/ml (<300); Methadone Screen,Urine Negative ng/ml (<300)
[2023-01-22 20:56] LABS: Opiate Screen,Urine Negative ng/ml (<300)
[2023-01-22 21:16] LABS: Benzodiazepines Screen,Urine Negative ng/ml (<200)
== END ==
PROVIDERS: PCP Emergency Medicine; Visit Provider Emergency Medicine
DX: M79.2 Neuralgia and neuritis, unspecified (principal); Z79.899 Other long term (current) drug therapy
CPT/HCPCS: 80305

== ENCOUNTER 2023-03-22 23:16 | Outpatient (CLI) | payer OTHER, SELFPAY | END 2023-03-22 23:59 | LOC: LAB.DROPOF 23:18 | PROVIDERS: PCP Family Medicine; Visit Provider Family Medicine | DX: Z79.899 Other long term (current) drug therapy (principal) ==

== ENCOUNTER 2023-03-23 11:53 | Outpatient (CLI) | payer OTHER, SELFPAY ==
[2023-03-23 12:40] LABS: Amphetamine/Metha Screen,Urine Negative ng/ml (<1000); Barbiturates Screen,Urine Negative ng/ml (<200); Benzodiazepines Screen,Urine Negative ng/ml (<200); Cannabinoid Screen,Urine Positive ng/ml (<50); Cocaine Screen,Urine Negative ng/ml (<300); Methadone Screen,Urine Negative ng/ml (<300); Opiate Screen,Urine Negative ng/ml (<300); Phencyclidine Screen,Urine Negative ng/ml (<25)
[2023-03-27 15:56] LABS: Gabapentin,Urine >800.0 ug/mL (.)
[2023-03-29 06:39] LABS: Opiates Negative (Cutoff=100); Oxycodone (GC/MS) 1034 ng/mL (Cutoff=100)
== END 2023-03-23 23:59 ==
LOC: LAB.DROPOF 11:53
PROVIDERS: PCP Family Medicine; Visit Provider Family Medicine
DX: Z79.899 Other long term (current) drug therapy (principal)
CPT/HCPCS: 80307; 80361; 80365; G0480

== ENCOUNTER 2023-05-07 16:21 | Outpatient (CLI) | payer OTHER, SELFPAY ==
--- NOTE | 2023-05-07 16:22 | MM_ITS ---
PROCEDURE INFORMATION: Exam: MG Bilateral Screening 3D Mammography Exam date and time: 05/07/2023 4:12 PM Age: 63 years old Clinical indication: Screening mammogram TECHNIQUE: Imaging protocol: Bilateral Screening tomosynthesis and 2D mammography including computer-aided detection (CAD) when performed. COMPARISON: 1. MG MM DIG MAMM DX UNILAT LT CAD 03/12/2020 2:00 PM 2. MG MM DIG SCREENING MAMM BI W/CAD 02/26/2020 4:00 PM 3. MG DMSB DIG MAMM-SCREEN CHRISTINE W/CAD 06/02/2016 4:08 PM 4. MG DMSB DIG MAMM-SCREEN CHRISTINE 05/28/2015 11:04 AM FINDINGS: MAMMOGRAPHY: Breast composition: The breast is heterogeneously dense, which may obscure small masses. Mass: None. Architectural distortion: No new or suspicious architectural distortion. Calcifications: No new or suspicious calcifications are present Asymmetric density: No new or suspicious asymmetric density is present Skin thickening: None. Axillary adenopathy: None. Other findings: Stable postoperative findings on the left IMPRESSION: No mammographic evidence of malignancy. Recommend annual screening mammography unless otherwise clinically indicated. ASSESSMENT: BI-RADS category 2: Benign
== END 2023-05-07 23:59 ==
LOC: RAD 16:22
PROVIDERS: PCP Family Medicine; Visit Provider Family Medicine
DX: Z12.31 Encounter for screening mammogram for malignant neoplasm of breast (principal); M79.2 Neuralgia and neuritis, unspecified
CPT/HCPCS: 77063; 77067

== ENCOUNTER 2023-05-10 10:49 | Outpatient (POV) | payer OTHER, SELFPAY ==
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
[2023-05-10 12:29] VITALS: BP 132/66; PULSE 68; RESP 18; O2SAT 96; BMI 18.8
== END 2023-05-10 23:59 ==
LOC: SC.PAIN 10:50
PROVIDERS: PCP Family Medicine; Visit Provider Nurse Practitioner Family
DX: M54.42 Lumbago with sciatica, left side (principal); G89.29 Other chronic pain; M25.552 Pain in left hip; M51.36 Other intervertebral disc degeneration, lumbar region; M24.28 Disorder of ligament, vertebrae; M46.1 Sacroiliitis, not elsewhere classified
CPT/HCPCS: 99202; G0463

== ENCOUNTER 2023-05-19 10:17 | Outpatient (POV) | payer OTHER, SELFPAY ==
[2023-05-19 10:27] VITALS: BP 138/84; PULSE 69; RESP 20; BMI 18.8
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
[2023-05-19 11:23] LABS: Basophils # 0.1 K/mm3 (0-0.2); Basophils % 0.9 % (0.1-2.0); Eosinophils # 0.2 K/mm3 (0.0-0.4); Eosinophils % 2.5 % (0.1-12.0); Hematocrit 47.6 % (37.0-47.0); Hemoglobin 15.4 g/dL (12.2-16.2); Lymphocytes # 2.8 K/mm3 (0.7-4.5); Lymphocytes % 31.8 % (10-50); Mean Corpuscular HGB Conc 32.5 g/dL (31.8-35.4); Mean Corpuscular Hemoglobin 32.8 pg (27.0-31.2); Mean Corpuscular Volume 101.1 fl (81-99); Mean Platelet Volume 7.9 fl (7.4-10.4); Monocytes # 0.6 K/mm3 (0.1-1.0); Neutrophils % 57.8 % (37.0-80.0); Platelet Count 278 K/mm3 (142-424); Red Blood Count 4.71 M/mm3 (4.20-5.40); Red Cell Distribution Width 13.2 % (11.5-17.5); White Blood Count 8.7 K/mm3 (4.8-10.8)
[2023-05-19 11:50] LABS: Hemoglobin A1C 5.6 % (4.0-6.0)
[2023-05-19 11:56] LABS: Alanine Aminotransferase 14 U/L (12-78); Albumin Level 4.7 g/dl (3.5-5.0); Albumin/Globulin Ratio 1.5 (1.1-1.8); Alkaline Phosphatase 121 U/L (38-126); Anion Gap 8.7 mEq/L (5-15); Aspartate Amino Transferase 27 U/L (14-36); Bilirubin,Total 0.6 mg/dl (0.2-1.3); Blood Urea Nitrogen 8 mg/dl (7-17); Calcium 9.9 mg/dl (8.4-10.2); Carbon Dioxide 33 mmol/L (22.0-30.0); Chloride 104 mmol/L (98-107); Chol/HDL Ratio 4.4 (1-3.5); Cholesterol 259 mg/dl (140-200); Creatinine Clearance Estimated 42 mL/min (50-200); Estimated Glomerular Filt Rate 102 ml/min (>60); GFR (African American) 123 ML/MIN (>60); Globulin 3.2 g/dL (1.3-3.2); Glucose 104 mg/dl (74-100); HDL Cholesterol 59 mg/dl (40-60); Potassium 3.7 mmoL/L (3.5-5.1); Sodium 142 mmol/L (136-145); Total Protein,Serum 7.9 g/dl (6.3-8.2); Triglycerides 101 mg/dl (30-150); VLDL Cholesterol 20 mg/dL (0-40)
[2023-05-19 12:07] LABS: Direct LDL Cholesterol 155.09 mg/dL (100-129)
[2023-05-19 12:15] LABS: 25-OH Vitamin D, Total 47.6 ng/mL (30-100)
[2023-05-21 14:49] LABS: Vitamin B12 418 pg/mL (239-931)
== END 2023-05-19 23:59 ==
LOC: SC.PAIN 10:18
PROVIDERS: PCP Family Medicine; Visit Provider Nurse Practitioner Family
DX: M54.16 Radiculopathy, lumbar region (principal); M54.50 Low back pain, unspecified; M25.552 Pain in left hip; M46.1 Sacroiliitis, not elsewhere classified
CPT/HCPCS: 36415; 80053; 80061; 82306; 82607; 83036; 84443; 85025; 99212; G0463

== ENCOUNTER 2023-05-20 10:08 | Outpatient (CLI) | payer OTHER, SELFPAY | END 2023-05-20 23:59 | LOC: RAD 10:09 | PROVIDERS: PCP Family Medicine; Visit Provider Anesthesiology | DX: M54.50 Low back pain, unspecified (principal); M25.552 Pain in left hip ==

== ENCOUNTER 2023-06-10 08:41 | Outpatient (CLI) | payer OTHER, SELFPAY ==
--- NOTE | 2023-06-10 08:46 | XR_ITS ---
FINAL REPORT CLINICAL HISTORY: Left ankle Pain COMPARISON: None FINDINGS: LEFT ANKLE Three views demonstrate no acute fracture or dislocation. The visualized joint spaces are normally aligned. The soft tissues are unremarkable. IMPRESSION: No acute bony abnormality. Reviewed, Interpreted and Dictated by August Carolina MD Transcribed by Arabella Brandt Authenticated and [facility]
--- NOTE | 2023-06-10 08:46 | XR_ITS ---
FINAL REPORT CLINICAL HISTORY: Right ankle Pain COMPARISON: None FINDINGS: RIGHT ANKLE 3 views of the right ankle were obtained. There is no acute fracture or dislocation. The mortise is intact. Visualized joint spaces are normally aligned. Soft tissues are unremarkable. IMPRESSION: No acute bony abnormality. Reviewed, Interpreted and Dictated by August Carolina MD Transcribed by Arabella Brandt Authenticated and [facility]
--- NOTE | 2023-06-10 08:46 | XR_ITS ---
FINAL REPORT CLINICAL HISTORY: Right foot Pain COMPARISON: None FINDINGS: RIGHT FOOT 3 views of the right foot were obtained. There is no acute fracture or dislocation. There is mild Silvia deformity. Visualized joint spaces are normally aligned. Soft tissues are unremarkable. IMPRESSION: No acute bony abnormality. Reviewed, Interpreted and Dictated by August Carolina MD Transcribed by Arabella Brandt Authenticated and [facility]
--- NOTE | 2023-06-10 08:46 | XR_ITS ---
FINAL REPORT CLINICAL HISTORY: Left foot Pain COMPARISON: None FINDINGS: LEFT FOOT Three views of the left foot demonstrate no acute fracture or dislocation. The visualized joint spaces are normally aligned. The soft tissues are unremarkable. IMPRESSION: No acute bony abnormality. Reviewed, Interpreted and Dictated by August Carolina MD Transcribed by Arabella Brandt Authenticated and [facility]
== END 2023-06-10 23:59 ==
LOC: RAD 08:42
PROVIDERS: PCP Family Medicine; Visit Provider Family Medicine
DX: M25.571 Pain in right ankle and joints of right foot (principal); M79.671 Pain in right foot; M25.572 Pain in left ankle and joints of left foot; M79.672 Pain in left foot
CPT/HCPCS: 73610; 73630

== ENCOUNTER 2023-09-03 08:29 | Day surgery (SDC) | payer OTHER, SELFPAY ==
[2023-09-03 08:49] VITALS: BP 160/85; PULSE 79; RESP 16; TEMP 36.4; O2SAT 96; BMI 18.8
--- NOTE | 2023-09-03 09:05 | HMH.SCOPE ---
Procedure: Date: 09/03/23 Patient Date of :: 1960 Procedure Performed:: Colonoscopy Indications:: Patient is a 63-year-old female who presents for colonoscopy. She underwent colonoscopy 2014 and had tubular adenoma. Colonoscopy done on 04/09/2020 revealed diverticulosis. Patient had presented with complicated diverticulitis on 09/11/2021 which required emergent laparotomy as a Nunes's procedure with resection and en bloc resection of distal sigmoid colon, appendix, and right ovary. She ultimately underwent reversal of the colostomy with pelvic anastomosis on 07/30/2022. Given her prior history plan was for follow-up colonoscopy. . Performing Provider:: Rodrick Mayes MD Referring Provider:: Aria Damon Sedation:: MAC sedation Procedure:: Patient history was obtained and appropriate physical examination was performed. Patient's medications and allergies were reviewed. Informed consent was obtained after explaining the benefits, alternatives, and risks of the procedure including, but not limited to, bleeding, perforation, missed lesions, and adverse reaction to anesthesia medications. Patient was transported to endoscopy procedure room. Patient was connected to monitoring devices. Throughout the procedure the patient's blood pressure, pulse, and oxygen saturations were monitored continuously. Patient identification and planned procedure were verified by the staff. Patient was positioned in lateral decubitus position. Digital anorectal exam was performed. Variable stiffness Olympus colonoscope was inserted and advanced under direct visualization to the cecum. Adequacy of the colonic preparation was noted. The colonoscope was then slowly withdrawn while carefully examining the color, texture, anatomy, and integrity of the mucosoa circumferentially. Within the rectum retroflexion was performed. Colonoscope was then withdrawn. . There was some particulate liquid stool throughout the colon which somewhat obscured visualization. This was able to be partially cleared with high-volume trans colonoscopic irrigation and suctioning. There was some lack of relaxation in the sigmoid colon which obscured visualization. There were rare sigmoid diverticuli. There was possible submucosal lipoma rectosigmoid region. . Findings:: Fair preparation Lack of relaxation of sigmoid colon Possible distal sigmoid submucosal lipoma Recommendations:: Recommend repeat colonoscopy 3 years given the suboptimal visualization Complications:: None Estimated blood obtained (mL): 0 Colonoscopy Component Colonoscopy Component Was a colonoscopy performed during today's procedure?: Yes Recommended follow up colonoscopy of at least 10 years?: No If no, follow up colonoscopy recommended in ___ years?: 3 Reason for not recommending >/= 10 yr follow-up interval?: See above
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
[2023-09-03 09:53] VITALS: BP 82/48; PULSE 69; RESP 16; TEMP 36.8; O2SAT 92
[2023-09-03 10:03] VITALS: BP 86/54; PULSE 67; RESP 16; O2SAT 94
[2023-09-03 10:13] VITALS: BP 145/90; PULSE 66; RESP 16; O2SAT 96
[2023-09-03 10:23] VITALS: BP 158/78; PULSE 61; RESP 16; O2SAT 96
[2023-09-03 10:43] VITALS: BP 153/94; PULSE 64; RESP 16; O2SAT 96
== END 2023-09-03 10:43 | disposition home or self-care (01) ==
PROVIDERS: PCP Family Medicine; Visit Provider Surgery
PROC: 0DJD8ZZ Inspection of Lower Intestinal Tract, Via Natural or Artificial Opening Endoscopic (ICD-10-PCS; CPT 45378; principal; 2023-09-03 09:30)
DX: Z12.11 Encounter for screening for malignant neoplasm of colon (principal); Z86.010 Personal history of colon polyps; K57.92 Diverticulitis of intestine, part unspecified, without perforation or abscess without bleeding
CPT/HCPCS: 45378; J2405